=== PATIENT | female | born 1950 | race Caucasian/White ===

== ENCOUNTER 2016-09-03 08:53 | Outpatient (CLI) | payer OTHER | END 2016-09-03 20:00 | disposition home or self-care (01) | LOC: SMA 08:53 | PROVIDERS: ATTEND Family Medicine | DX: Z12.31 Encounter for screening mammogram for malignant neoplasm of breast (principal) | CPT/HCPCS: 77067; G0202 ==

== ENCOUNTER 2017-08-27 13:09 | Outpatient (CLI) | payer OTHER | END 2017-08-27 19:52 | disposition home or self-care (01) | LOC: SRD 13:09 | PROVIDERS: ATTEND General Practice | DX: Z01.818 Encounter for other preprocedural examination (principal); I25.10 Atherosclerotic heart disease of native coronary artery without angina pectoris; Z95.810 Presence of automatic (implantable) cardiac defibrillator | CPT/HCPCS: 71046-TC ==

== ENCOUNTER 2017-08-31 11:10 | Day surgery (SDC) | payer OTHER ==
[~2017-08-31] VITALS: Ht 162.6 cm; Wt 89.4 kg
[2017-08-31 11:59] LABS: BASOPHILS % (AUTO) 0.7 % (0.0-2.0); EOSINOPHILS # (AUTO) 0.2 K/uL (0.0-0.4); EOSINOPHILS % (AUTO) 3.3 % (0.0-4.0); HEMOGLOBIN 11.5 g/dL (12.0-16.0); LYMPHOCYTES # (AUTO) 1.1 K/uL (1.0-5.5); LYMPHOCYTES % (AUTO) 19.8 % (20.5-51.5); MEAN CORPUSCULAR HEMOGLOBIN 28 pg (27-31); MEAN CORPUSCULAR HGB CONC 33 % (32-36); MEAN CORPUSCULAR VOLUME 85 fL (79.0-98.0); MONOCYTES # (AUTO) 0.5 K/uL (0.0-1.0); MONOCYTES % (AUTO) 8.9 % (1.7-9.3); NEUTROPHILS # (AUTO) 3.7 K/uL (1.8-7.7); NEUTROPHILS % (AUTO) 67.3 % (40.0-70.0); PLATELET COUNT (AUTO) 314 K/uL (130-430); RED BLOOD CELL COUNT(AUTO) 4.13 MIL/uL (4.2-6.2); RED CELL DISTRIBUTION WIDTH 13.8 % (9.0-15.0); WHITE BLOOD COUNT (AUTO) 5.5 K/uL (4.8-10.8)
[2017-08-31] MEDS ORDERED: CEFAZOLIN 2 GM IVPB PREMIX 50 ML IV ONE (12:01)
[2017-08-31] MEDS ORDERED: NS 1000 ML BAG IV ONE (13:46)
[2017-08-31] MEDS ORDERED: MIDAZOLAM HCL 5 MG/5 ML VIAL IVP ONE (13:46)
[2017-08-31] MEDS ORDERED: MEPERIDINE HCL/PF 50 MG/ML AMP IV ONE (13:46)
[2017-08-31] MEDS ORDERED: SEVOFLURANE 15 MIN GAS INH ONE (13:46)
[2017-08-31] MEDS ORDERED: NS IRRIG SOLN 1000 ML IR ONE (13:46)
[2017-08-31] MEDS ORDERED: fentaNYL CITRATE 250 MCG/5 ML AMP IV ONE (13:46)
[2017-08-31] MEDS ORDERED: ONDANSETRON HCL 4 MG/2 ML VIAL IVP ONE ×2 (13:46→15:15)
[2017-08-31] MEDS ORDERED: LIDOCAINE PF 1%, 20 MG/2 ML AMP INJ ONE (13:46)
[2017-08-31] MEDS ORDERED: PROPOFOL 200MG/ 20ML VIAL (DIPRIVAN) IV ONE (13:46)
[2017-08-31] MEDS ORDERED: MEPERIDINE HCL/PF 50 MG/ML AMP ONE (14:00)
[2017-08-31] MEDS ORDERED: NALOXONE HCL 0.4 MG/ML AMP (NARCAN) IVP ONE (15:15)
[2017-08-31] MEDS ORDERED: HYDROmorphone 1 MG INJ. 1 MG/ML AMPUL IVP PRN (15:15)
[2017-08-31] MEDS ORDERED: MEPERIDINE HCL/PF 25 MG/ML DISP.SYRIN IVP PRN (15:15)
[2017-08-31] MEDS ORDERED: fentaNYL CITRATE/PF 100 MCG/2 ML AMP IVP PRN (15:15)
[2017-08-31] MEDS ORDERED: KETOROLAC TROMETHAMINE 30 MG VIAL IM ONE (15:15)
[2017-08-31] MEDS ORDERED: MIDAZOLAM HCL 5 MG/5 ML VIAL IVP PRN (15:15)
[2017-08-31] MEDS ORDERED: HYDROcodone/ACETAMIN 5-325 MG TAB (NORCO/ VICODIN) PO PRN (15:45)
[2017-08-31 17:17] VITALS: BP_SYST 117
== END 2017-08-31 18:00 | disposition home or self-care (01) ==
LOC: SDS 11:10 → SMU 11:11 → SDS 18:00
PROVIDERS: ATTEND Surgery
DX: S30.1XXA Contusion of abdominal wall, initial encounter (principal); S70.02XA Contusion of left hip, initial encounter; X58.XXXA Exposure to other specified factors, initial encounter; Y93.9 Activity, unspecified; Y92.89 Other specified places as the place of occurrence of the external cause; Y99.9 Unspecified external cause status; Z98.890 Other specified postprocedural states; Z95.0 Presence of cardiac pacemaker; Z79.899 Other long term (current) drug therapy
CPT/HCPCS: 26990; 36415; 82962; 85025; 87070; 87075; 87101; 88304; J0690; J2001; J2175; J2250; J2405; J2704; J3010; J7030; J7120

== ENCOUNTER 2017-09-07 14:46 | Outpatient (CLI) | payer OTHER | END 2017-09-07 17:45 | disposition home or self-care (01) | LOC: SMA 14:46 | PROVIDERS: ATTEND Family Medicine | DX: Z12.31 Encounter for screening mammogram for malignant neoplasm of breast (principal) | CPT/HCPCS: 77067 ==

== ENCOUNTER 2018-09-13 14:56 | Outpatient (CLI) | payer OTHER | END 2018-09-13 16:56 | disposition home or self-care (01) | LOC: SMA 14:56 | PROVIDERS: ATTEND Family Medicine | DX: Z12.31 Encounter for screening mammogram for malignant neoplasm of breast (principal) | CPT/HCPCS: 77067 ==

== ENCOUNTER 2019-02-04 16:41 | Inpatient (IN) | payer OTHER ==
[~2019-02-04] VITALS: Ht 162.6 cm; Wt 84.8 kg
[2019-02-04 16:54] VITALS: BP_SYST 123
--- NOTE | 2019-02-04 18:24 | NUR ---
Patient to ER bed 03 to gown for evaluation. Side rails up.
--- NOTE | 2019-02-04 18:40 | NUR ---
Pt arrived to ED sent from Urgent Care with complaints of right foot ulcer on the ball of foot. Pt was previously receiving weekly wound treatment in [place] until she could no longer afford transportation cost. Pt stated she is in a lot of pain, and wound is packed and dressed. Wound was not packed, but was dressed.
--- NOTE | 2019-02-04 18:48 | NUR ---
ER Dr. Lam at bedside examining patient.
[2019-02-04] MEDS ORDERED: NACL 0.9% 1,000 ML IV ONE (19:00)
[2019-02-04 20:00] LABS: BASOPHILS % (AUTO) 0.5 % (0.0-2.0); EOSINOPHILS # (AUTO) 0.1 K/uL (0.0-0.4); EOSINOPHILS % (AUTO) 1.8 % (0.0-4.0); HEMATOCRIT 34.7 % (36-48); HEMOGLOBIN 11.5 g/dL (12.0-16.0); LYMPHOCYTES # (AUTO) 1.6 K/uL (1.0-5.5); LYMPHOCYTES % (AUTO) 21.3 % (20.5-51.5); MEAN CORPUSCULAR HEMOGLOBIN 30 pg (27-31); MEAN CORPUSCULAR HGB CONC 33 % (32-36); MEAN CORPUSCULAR VOLUME 90 fL (79.0-98.0); MONOCYTES # (AUTO) 0.7 K/uL (0.0-1.0); MONOCYTES % (AUTO) 9.1 % (1.7-9.3); NEUTROPHILS # (AUTO) 4.9 K/uL (1.8-7.7); NEUTROPHILS % (AUTO) 67.3 % (40.0-70.0); PLATELET COUNT (AUTO) 228 K/uL (130-430); RED BLOOD CELL COUNT(AUTO) 3.86 MIL/uL (4.2-6.2); RED CELL DISTRIBUTION WIDTH 14.1 % (9.0-15.0); WHITE BLOOD COUNT (AUTO) 7.3 K/uL (4.8-10.8)
[2019-02-04 20:15] LABS: CALCIUM 9.5 mg/dL (8.4-11.0); CREATININE 1.56 mg/dL (0.55-1.30); INR 1.1 (0.8-1.2); PROTHROMBIN TIME 11.1 SECS (9.5-12.5)
[2019-02-04 20:17] LABS: POTASSIUM 2.9 mmol/L (3.5-5.1)
[2019-02-04 20:20] LABS: ALBUMIN 3.9 g/dL (3.4-4.8); TOTAL BILIRUBIN 0.4 mg/dL (0.0-1.0)
[2019-02-04] MEDS ORDERED: POTASSIUM CHLORIDE 10 MEQ TAB.PRT.SR PO ONE (20:30)
--- NOTE | 2019-02-04 20:30 | NUR ---
Dr. Gilman at bedside.
--- NOTE | 2019-02-04 21:15 | NUR ---
Pt provided diabetic tray.
[2019-02-04] MEDS ORDERED: ACETAMINOPHEN 325 MG TABLET PO ONE (21:30)
[2019-02-04 21:35] LABS: BILIRUBIN,URINE NEGATIVE (NEGATIVE); BLOOD, URINE NEGATIVE (NEGATIVE); CLARITY/URINE CLEAR (CLEAR); COLOR,URINE YELLOW (YELLOW); GLUCOSE,URINE NEGATIVE (NEGATIVE); KETONES,URINE NEGATIVE (NEGATIVE); LEUKOCYTE ESTERASE ,URINE NEGATIVE (NEGATIVE); NITRITE, URINE NEGATIVE (NEGATIVE); PROTEIN URINE NEGATIVE (NEGATIVE); UROBILINOGEN,URINE 0.2 (0.2-1.0)
[2019-02-04] MEDS ORDERED: ACETAMINOPHEN 325 MG TABLET ONE (21:44)
[2019-02-04] MEDS ORDERED: ASPIRIN 81 MG TAB.CHEW PO ONE (22:15)
[2019-02-04] MEDS ORDERED: POTA20TA83 PO (22:35)
[2019-02-04] MEDS ORDERED: LIP40 PO (22:36)
[2019-02-04] MEDS ORDERED: SITA50TA3 PO (22:39)
[2019-02-04] MEDS ORDERED: LISI2.5T48 PO (22:40)
[2019-02-04] MEDS ORDERED: MILN50TA PO (22:40)
[2019-02-04] MEDS ORDERED: FURO-149 PO (22:42)
[2019-02-04] MEDS ORDERED: HYDR200T80 PO (22:43)
[2019-02-04] MEDS ORDERED: CARV6.2554 PO (22:43)
[2019-02-04] MEDS ORDERED: PANT20TA2 PO (22:44)
[2019-02-04] MEDS ORDERED: METO5TAB8 PO (22:44)
[2019-02-04] MEDS ORDERED: CLOP75TA32 PO (22:47)
[2019-02-04] MEDS ORDERED: VENL150C2 PO (22:48)
[2019-02-04] MEDS ORDERED: ASPI-1153 PO (22:48)
[2019-02-04] MEDS ORDERED: GLIP10TA21 PO (22:51)
--- NOTE | 2019-02-04 22:56 | NUR ---
Medication reconciliation completed with information provided by patient. Any prior medication reconciliation on file was reviewed and corrected.
--- NOTE | 2019-02-04 23:02 | NUR ---
ADMISSION NOTE Received patient from ER via cody, received report from EUNICE FRAUSTO. Patient admitted with diagnosis of POSITIVE TROPONIN. Patient oriented to hospital routine, call light, toileting and safety-patient verbalized understanding.
--- NOTE | 2019-02-04 23:10 | NUR ---
Patient will be admitted to care of Dr. Herrera. Admitted to Tele unit. Will go to room 125B. Belongings list completed. Summary report printed. Bedside report given to EUNICE Zaragoza.
[2019-02-04 23:13] VITALS: BP_SYST 159
[2019-02-04] MEDS: ALPRAZolam 0.25 MG TABLET PO PRN (23:45)
--- NOTE | 2019-02-04 23:50 | NUR ---
XANAX GIVEN Patient was given Xanax as ordered PRN for complaints of anxiety. Educated on medication and potential side effects. Safety and fall precautions in place. Call light with patient. Bed alarm on. Will monitor.
--- NOTE | 2019-02-05 01:33 | NUR ---
CONSULTATION PAGED/CALLED Reason for Consultation: ELEVATED TROP Person Who was Notified: Consulting Physician: TORI TITUS IS PRINCIPAL SYSTEMS ENGINEER Residential Support Worker Specialty: CARDIO Ordering Physician: MERLY
[2019-02-05 01:43] VITALS: BP_SYST 119
[2019-02-05 01:56] VITALS: BP_SYST 119
--- NOTE | 2019-02-05 02:00 | NUR ---
RESTING/DENIES ANY PAIN OR DISCOMFORT Patient is resting at this time. Denies any pain or discomfort. Encouraged patient to use call light for any needs. Safety and fall precautions in place. Bed alarm on. Will monitor.
--- NOTE | 2019-02-05 02:44 | NUR ---
RESTING Patient is resting at this time. No s/s of acute distress. Safety and fall precautions in place. Bed alarm on. Call light with patient. Encouraged to use for any needs. Will monitor.
--- NOTE | 2019-02-05 03:56 | NUR ---
PERIPAD AND MESH UNDERWEAR GIVEN REQUESTED Patient requested peripad and disposable underwear. Given as requested. Denies any other needs at this time. States she will need to use the bathroom soon but not at this time. Reminded patient to use call light when she is ready. Verbalized understanding. Bed alarm on. Will monitor.
--- NOTE | 2019-02-05 04:14 | NUR ---
PAGING DR. TITUS (MEDICAID SPECIALIST FOR DR. MIR) TO REPORT CRITICAL TROPONIN OF 0.071 Spoke with Doreen from exchange who stated Dr. Titus is production operations manager for Dr. Mir. Will wait for MD to call back to report troponin result.
--- NOTE | 2019-02-05 04:23 | NUR ---
CRITICAL TROPONIN REPORTED TO DR. TITUS Critical troponin of 0.[address] Titus; no orders received. stated he will see patient in the morning.
[2019-02-05] MEDS ORDERED: D5W 1,000 ML IV PRN (05:58)
[2019-02-05] MEDS ORDERED: GLUCOSE 15 GM GEL (in 37.5 GM TUBE) PO PRN (06:00)
[2019-02-05] MEDS ORDERED: DEXTROSE 50% JECT 50 ML DISP.SYRIN IVP PRN (06:00)
--- NOTE | 2019-02-05 07:32 | NUR ---
CLOSING NOTES Patient and bedside report given to day shift nurse, EUNICE German. Endorsed ordered Zosyn due to pharmacy not being able to prepare medication before end of shift.
[2019-02-05 07:52] LABS: BASOPHILS % (AUTO) 0.8 % (0.0-2.0); EOSINOPHILS # (AUTO) 0.2 K/uL (0.0-0.4); EOSINOPHILS % (AUTO) 2.5 % (0.0-4.0); HEMATOCRIT 35.5 % (36-48); HEMOGLOBIN 11.7 g/dL (12.0-16.0); LYMPHOCYTES # (AUTO) 1.7 K/uL (1.0-5.5); MEAN CORPUSCULAR HEMOGLOBIN 30 pg (27-31); MEAN CORPUSCULAR HGB CONC 33 % (32-36); MEAN CORPUSCULAR VOLUME 90 fL (79.0-98.0); MONOCYTES # (AUTO) 0.6 K/uL (0.0-1.0); MONOCYTES % (AUTO) 9.8 % (1.7-9.3); NEUTROPHILS # (AUTO) 3.5 K/uL (1.8-7.7); NEUTROPHILS % (AUTO) 57.9 % (40.0-70.0); PLATELET COUNT (AUTO) 223 K/uL (130-430); RED BLOOD CELL COUNT(AUTO) 3.94 MIL/uL (4.2-6.2); RED CELL DISTRIBUTION WIDTH 14.1 % (9.0-15.0)
--- NOTE | 2019-02-05 07:55 | NUR ---
opening note patient is resting in bed, A&Ox4, assessment completed, educated protection analyst light system and plan of care, patient verbalized understanding, IV dressing intact, no signs of distress, fall/safety precautions in place, patient asked me to talk to MD about continuing the rest of her home medications.
[2019-02-05 08:00] VITALS: BP_SYST 133
[2019-02-05] MEDS ORDERED: PIPERACILLIN/TAZO 3.375/DEX-IS 50 ML IV ONE (08:00)
[2019-02-05 08:05] LABS: CALCIUM 9.4 mg/dL (8.4-11.0); CREATININE 1.34 mg/dL (0.55-1.30); POTASSIUM 3.3 mmol/L (3.5-5.1)
[2019-02-05 08:15] LABS: ALBUMIN 3.9 g/dL (3.4-4.8); TOTAL BILIRUBIN 0.3 mg/dL (0.0-1.0)
[2019-02-05] MEDS ORDERED: glipiZIDE XL 5 MG TAB ( GLUCOTROL XL) PO SCH (09:00)
[2019-02-05] MEDS ORDERED: ASPIRIN 81 MG TAB.CHEW PO SCH (09:00)
[2019-02-05] MEDS: ASPIRIN 81 MG TABLET(ECOTRIN) PO SCH (09:20)
[2019-02-05] MEDS: ATORVASTATIN 20 MG TABLET PO SCH (09:20)
[2019-02-05] MEDS: LISINOPRIL 5 MG TABLET PO SCH (09:21)
[2019-02-05] MEDS: CARVEDILOL 6.25 MG TABLET (COREG) PO SCH ×2 (09:21→20:52)
[2019-02-05] MEDS: PANTOPRAZOLE SODIUM 40 MG TAB PO SCH (09:22)
[2019-02-05] MEDS: METOLAZONE 5 MG TABLET PO SCH (09:22)
[2019-02-05] MEDS: FUROSEMIDE 40 MG TABLET PO SCH ×2 (09:22→20:50)
[2019-02-05] MEDS: HYDROXYCHLOROQUINE SULFATE 200 MG TABLET PO SCH ×2 (09:22→20:48)
[2019-02-05] MEDS: POTASSIUM CHLORIDE 20 MEQ TAB.PRT.SR PO SCH ×2 (09:22→20:49)
--- NOTE | 2019-02-05 09:22 | NUR ---
morning medications patient is resting in bed, educated on medication uses and side effects, patient verbalized understanding, no other needs at this time, DR Skinner is at station and I informed him about patient's home medication of plavix and he okayed for it to be continued.
--- NOTE | 2019-02-05 09:30 | NUR ---
Dr Bundy rounds informed him about the patient's troponin that I reported to Dr Brody MD did not ask for any orders and that she is cleared with him and if the troponin is lower or the same that it is okay and I do not need to page him again, and she should still follow up with her scheduled appt with Dr Mir.
[2019-02-05] MEDS ORDERED: CLOPIDOGREL BISULFATE 75 MG TABLET PO ONE (09:45)
[2019-02-05] MEDS ORDERED: MAG-AL HYDROX/SIMETH 30 ML UDC PO PRN (12:00)
[2019-02-05] MEDS: INSULIN REGULAR, HUMAN 100 UNITS/ML, 10 ML VIAL (humuLIN R) SUBCUT PRN ×2 (12:05→20:56)
--- NOTE | 2019-02-05 12:05 | NUR ---
insulin coverage patient is sitting in chair and watching tv, accuchek was done and sliding scale is needed per MD order, patient verbalized understanding, no other needs at this time, fall/safety precautions in place.
[2019-02-05] MEDS ORDERED: DOCUSATE SODIUM 100 MG CAPSULE PO ONE (12:15)
[2019-02-05 12:45] VITALS: BP_SYST 136
[2019-02-05] MEDS: ACETAMINOPHEN 325 MG TABLET PO PRN ×3 (13:04→23:58)
--- NOTE | 2019-02-05 13:34 | NUR ---
CONSULTATION PAGED/CALLED Reason for Consultation: [] FOOT WOUND DEBRIDEMENT Person Who was Notified: [] Consulting Physician: [] DR Libia HANDY Outreach And Education Social Worker Specialty: [] GEN SURGERY Ordering Physician: [] DR Libia MAYO Addendum: 02/05/19 at 1340 by Carol Villalta [place]/ PERSON WHO WAS NOTIFIED: MIGUEL (EXCHANGE)
--- NOTE | 2019-02-05 14:43 | NUR ---
spoke to Bri from pharmacy in regards to patient's 1400 zosyn not being in the med room, informed me that she will look into it.
[2019-02-05] MEDS: PIPERACILLIN/TAZO 3.375/DEX-IS 50 ML IV SCH ×2 (15:17→20:49)
--- NOTE | 2019-02-05 15:17 | NUR ---
giulia and Dr Parker consult patient resting in bed, educated on medication use and side effects, patient verbalized understanding, Dr Parker in the room speaking to the patient.
[2019-02-05] MEDS ORDERED: SILVER NITRATE APPLICATOR 1 STICK STICK..EA. TP ONE (16:15)
[2019-02-05 16:35] VITALS: BP_SYST 101
--- NOTE | 2019-02-05 17:15 | NUR ---
Exicisional debridement of right foot ulcer Dr Parker at the bedside to do procedure.
--- NOTE | 2019-02-05 18:28 | NUR ---
Nutrition Assessment A RD reviewed pertinent nutrition-related info via EMR (physician notes/nursing notes/labs/meds/nursing care trends/care activity). Admission Dx: Positive troponin PMH: DM, HTN, CAD, arthritis, fibromyalgia, lupus, PVD, infected foot ulcer per physician notes Current Diet Order/Nutrition Support: CCHO x0 days Current PO Intakes: N/A Objective Information: RD Notification received 02/04/19 2333 for unintentional wt loss in the last 3 months (14-23#), and unhealed wound. Plan for bedside debridement today per RN report. Subjective Information: 68 YOF seen sitting in bedside chair at time of RD visit. Pt appeared over-nourished for ht, c/w anthropometrics and verified by pt. Pt reported fair appetite, tolerating diet well, though stated she did not care much from lunch entre provide today: pasta w/ meat sauce, potatoes, and broccoli. Pt reported that she only ate a bit of the pasta w/ meat sauce and broccoli. Pt reported use of Glucerna ONS MACHINE CLOTHING MAN. RD offered ONS and Adalberto for wound healing pt declined ONS but was receptive to Adalberto BID (orange flavor). RD encouraged pt to try to increase PO intakes for adequate nutrition and wound healing. Ht: 64/54 Wt: 187#/85 kg IBW: 120#/55 kg %IBW: 155% Adj IBW (obesity): 137#/62 kg BMI: 32.1 kg/m2 (obesity class I) ESTIMATED NUTRITIONAL NEEDS CALORIES/DAY: 4972-1336 kcal/day (30-35 kcal/kg Adj IBW for obesity, wound healing, infection) PROTEIN/DAY: 74-93 gm/day (1.2-1.5 gm/kg Adj IBW for obesity, wound healing, infection) FLUID/DAY: 1.8-2.2 L/day (1 ml/kcal/day for maintenance) D Increased nutritional needs related to metabolic demands as evidenced by estimated nutritional needs for wound healing and infection. I Recommend CCHO diet w/ Adalberto BID (180 kcal/day, 5 gm protein/day) M Monitor appetite and PO intakes w/ goal of pt meeting at least 75% of estimated nutritional needs, labs trending WNL, normal GI function, and skin integrity/wt maintenance E Moderate Risk; RD to F/U within 3-5 days
--- NOTE | 2019-02-05 18:29 | NUR ---
Dietitian Recommendations * Recommend [facility] [place] diet w/ Adalberto BID (180 kcal/day, 5 gm protein/day) LP, RD Please refer to Nutrition Assessment for details.
--- NOTE | 2019-02-05 19:01 | NUR ---
closing note patient is resting in bed,no signs of distress, pain tolerable at this time, fall/safety precautions in place, will endorse report to noc shift nurse to continue with care, patient has PRN medications that she may request.
--- NOTE | 2019-02-05 19:25 | NUR ---
OPENING NOTE Patient and bedside report was received from day shift nurse. Interactive Digital Media Specialist at bedside.
--- NOTE | 2019-02-05 20:40 | NUR ---
LESLEY MARIN PAGING DR. VALLE, DR. BUENO CLIENT ADMINISTRATOR, REGARDING CRITICAL LABS, SPOKE WITH CATHERINE
[2019-02-05] MEDS: DOCUSATE SODIUM 100 MG CAPSULE PO SCH (20:50)
--- NOTE | 2019-02-05 20:50 | NUR ---
CRITICAL TROPONIN REPORTED TO DR. BUENO (CARDIO COVERING FOR DR. MIR) Patient's critical troponin level was reported to Dr. Bueno, who is covering for Dr. Mir. No new orders received.
[2019-02-05 20:52] VITALS: BP_SYST 152
[2019-02-05] MEDS: ALPRAZolam 0.25 MG TABLET PO PRN (21:02)
--- NOTE | 2019-02-05 21:02 | NUR ---
XANAX GIVEN Patient requested Xanax for complaints of anxiety and her statement of "missing [her] " who a few years ago because "he usually takes care of [her]." I reassured her that nursing staff is here to take care of her. Tissue box and ice chips given as requested.
--- NOTE | 2019-02-05 22:15 | NUR ---
BEDSIDE COMMODE Patient's bed alarm went off and patient was already standing up with walker against nurse's instructions to use call light for assistance when getting out of bed. Encouraged patient to use call light for safety precautions and increased risk for falls. Verbalized understanding. Will continue with plan of care. Addendum: 02/06/19 at 0341 by Spring Roberson RN EDIT: BATHROOM* NOT BEDSIDE COMMODE
[2019-02-06 00:37] VITALS: BP_SYST 146
--- NOTE | 2019-02-06 01:00 | NUR ---
BEDPAN Patient requested bedpan and stated she did not want a bedside commode, or to walk to the bathroom at this time. Patient was able to void with no difficulty. Denies any other needs at this time.
[2019-02-06] MEDS: PIPERACILLIN/TAZO 3.375/DEX-IS 50 ML IV SCH ×2 (02:37→08:41)
--- NOTE | 2019-02-06 04:01 | NUR ---
RESTING Pt. resting at this time. Denies any needs. Encouraged to use call light for assistance. Bed alarm on. Will monitor.
[2019-02-06 06:16] LABS: ALBUMIN 3.3 g/dL (3.4-4.8); CALCIUM 9.1 mg/dL (8.4-11.0); CREATININE 1.64 mg/dL (0.55-1.30); TOTAL BILIRUBIN 0.3 mg/dL (0.0-1.0)
[2019-02-06] MEDS: INSULIN REGULAR, HUMAN 100 UNITS/ML, 10 ML VIAL (humuLIN R) SUBCUT PRN ×2 (06:21→11:23)
[2019-02-06 06:35] LABS: POTASSIUM 2.9 mmol/L (3.5-5.1)
--- NOTE | 2019-02-06 06:50 | NUR ---
PAGED DR. MAYO TO REPORT CRITICAL POTASSIUM 2.9/CLOSING NOTES All needs met throughout shift. Paged Dr. Mayo to report potassium 2.9 level. Spoke with Jen prince. Will endorse care to day shift nurse.
--- NOTE | 2019-02-06 07:13 | NUR ---
REPORTED POTASSIUM [address] MAYO Patient's potassium level of 2.[address] Mayo; orders for 40 meq potassium IV was received. Day shift nurse, EUNICE German also made aware to carry out. Addendum: 02/06/19 at 0722 by Spring Roberson RN EDIT: Orders for KRIDER 40 meq potassium IV received.
[2019-02-06] MEDS ORDERED: KCL 40 mEq in 100 mL (PREMIX) 100 ML IV ONE (07:15)
--- NOTE | 2019-02-06 07:27 | NUR ---
Nutrition Update Herber Scale 18 noted. Pt admitted for Positive Troponin Diet: [facility] BMI: 32.1 kg/m2 RD to follow per nutrition care standards.
--- NOTE | 2019-02-06 07:45 | NUR ---
opening note patient is resting in bed, A&Ox4, assessment completed, educated commissioned defence force officer light system and plan of care, patient verbalized understanding, IV dressing intact, no signs of distress, fall/safety precautions in place.
[2019-02-06 08:00] VITALS: BP_SYST 110
[2019-02-06] MEDS: DOCUSATE SODIUM 100 MG CAPSULE PO SCH (08:40)
[2019-02-06] MEDS: POTASSIUM CHLORIDE 20 MEQ TAB.PRT.SR PO SCH (08:41)
[2019-02-06] MEDS: ASPIRIN 81 MG TABLET(ECOTRIN) PO SCH (08:42)
[2019-02-06] MEDS: HYDROXYCHLOROQUINE SULFATE 200 MG TABLET PO SCH (08:42)
[2019-02-06] MEDS: PANTOPRAZOLE SODIUM 40 MG TAB PO SCH (08:42)
[2019-02-06] MEDS: ACETAMINOPHEN 325 MG TABLET PO PRN (08:43)
[2019-02-06] MEDS: METOLAZONE 5 MG TABLET PO SCH (08:43)
[2019-02-06] MEDS: ATORVASTATIN 20 MG TABLET PO SCH (08:43)
[2019-02-06] MEDS: FUROSEMIDE 40 MG TABLET PO SCH (08:44)
[2019-02-06] MEDS: LISINOPRIL 5 MG TABLET PO SCH (08:44)
[2019-02-06] MEDS: CARVEDILOL 6.25 MG TABLET (COREG) PO SCH (08:45)
[2019-02-06] MEDS ORDERED: POTASSIUM CHLORIDE 40 MEQ in NS 250 ML IV ONE (09:00)
[2019-02-06] MEDS ORDERED: CLOPIDOGREL BISULFATE 75 MG TABLET PO SCH (09:00)
[2019-02-06] MEDS ORDERED: NS 250 ML IV ONE (09:15)
[2019-02-06] MEDS ORDERED: POTASSIUM CHLORIDE 20 MEQ TAB.PRT.SR PO ONE (09:15)
--- NOTE | 2019-02-06 09:45 | NUR ---
new medication orders from Dr Skinner patient resting in bed, educated on medication uses and side effects, patient verbalized understanding, no other needs at this time, informed her about the discharge plan for today, fall/safety precautions in place.
[2019-02-06 10:47] VITALS: BP_SYST 94
[2019-02-06] MEDS ORDERED: NEPH PO (10:48)
[2019-02-06] MEDS ORDERED: CEPH250C PO (10:49)
[2019-02-06] MEDS ORDERED: TRAM-350 PO (10:50)
--- NOTE | 2019-02-06 11:22 | NUR ---
accucheck patient is resting in bed, accucheck done and sliding scale needed per MD order, educated on medication use and side effects, patient verbalized understanding, no needs addressed at this time, informed her that I talked to her son and he will be the one taking her back [facility] the senior living center.
[2019-02-06 12:00] VITALS: BP_SYST 94
--- NOTE | 2019-02-06 13:39 | NUR ---
rounds patient is resting in bed, repositioned electrodes, awaiting for the CMP result, no other needs addressed at this time, fall/safety precautions in place, IV potassium still running.
[2019-02-06 13:41] LABS: CREATININE 1.63 mg/dL (0.55-1.30); POTASSIUM 3.6 mmol/L (3.5-5.1)
[2019-02-06] MEDS ORDERED: PIPERACILLIN/TAZOBACTAM 2.25 GM/ D5W 50 ML IV SCH ×2 (14:00)
--- NOTE | 2019-02-06 15:13 | NUR ---
D/C Patient 1500 Patient given medication reconciliation form and D/C instructions. Exit Care provided. Patient verbalized understanding. MD discussed with patient the results and treatment provided. Ambulatory with steady gait for discharge to home. Patient in stable condition, ID band removed. IV catheter removed, intact and dressing applied, no active bleeding. Rx of nephrovite, keflex, and tramadol given. Patient educated on pain management. All belongings sent with patient.
== END 2019-02-06 15:00 | disposition home or self-care (01) | DRG 300 ==
LOC: SED 16:41 → STU 22:09
PROVIDERS: ADMIT Internal Medicine Hospice and Palliative Medicine; ATTEND Internal Medicine Hospice and Palliative Medicine
PROC: 0HBNXZZ Excision of Left Foot Skin, External Approach (ICD-10-PCS; principal; 2019-02-05)
DX: E11.51 Type 2 diabetes mellitus with diabetic peripheral angiopathy without gangrene (principal); N17.9 Acute kidney failure, unspecified; M86.8X7 Other osteomyelitis, ankle and foot; M19.90 Unspecified osteoarthritis, unspecified site; I25.10 Atherosclerotic heart disease of native coronary artery without angina pectoris; E11.69 Type 2 diabetes mellitus with other specified complication; E11.22 Type 2 diabetes mellitus with diabetic chronic kidney disease; E11.628 Type 2 diabetes mellitus with other skin complications; E78.5 Hyperlipidemia, unspecified; I12.9 Hypertensive chronic kidney disease with stage 1 through stage 4 chronic kidney disease, or unspecified chronic kidney disease; L08.9 Local infection of the skin and subcutaneous tissue, unspecified; L84 Corns and callosities; L97.509 Non-pressure chronic ulcer of other part of unspecified foot with unspecified severity; M79.7 Fibromyalgia; N18.3 Chronic kidney disease, stage 3 (moderate); Z95.0 Presence of cardiac pacemaker; Z79.4 Long term (current) use of insulin
CPT/HCPCS: 36415; 71045; 80048; 80053; 80061; 81003; 82962; 83605; 84484; 85025; 85610-TC; 85730-TC; 87040-TC; 87070-TC; 87075-TC; 87086; 87186-TC; 93005; 96360; 99285; G0378; J0696; J1815; J2543; J3480; J7030; J7050; J7060

== ENCOUNTER 2019-12-01 10:10 | Outpatient (CLI) | payer OTHER ==
[~2019-12-01 10:10] MED LIST: ASPI-1153 PO; CARV6.2554 PO; CEPH250C PO; CLOP75TA32 PO; FURO-149 PO; GLIP10TA21 PO; HYDR200T80 PO; LIP40 PO; LISI2.5T48 PO; METO5TAB8 PO; MILN50TA PO; NEPH PO; PANT20TA2 PO; POTA20TA83 PO; SITA50TA3 PO; TRAM-350 PO; VENL150C2 PO
== END 2019-12-01 22:22 | disposition home or self-care (01) ==
LOC: SMA 10:10
PROVIDERS: ATTEND Family Medicine
DX: Z12.31 Encounter for screening mammogram for malignant neoplasm of breast (principal); N64.89 Other specified disorders of breast
CPT/HCPCS: 77067

== ENCOUNTER 2022-07-15 21:39 | Inpatient (IN) | payer OTHER ==
[~2022-07-15] VITALS: Ht 160 cm; Wt 82.6 kg
[~2022-07-15 21:39] MED LIST changes: -ASPI-1153 PO; +ASPI-1393 PO; -METO5TAB8 PO; +METO5TAB9 PO; +POTA-197 PO; -POTA20TA83 PO; -VENL150C2 PO; +VENL150C4 PO
[2022-07-15] MEDS ORDERED: METOPROLOL TARTRATE 5 MG/5 ML VIAL IVP ONE (21:45)
[2022-07-15 21:50] VITALS: BP_SYST 150
[2022-07-15 22:29] LABS: BASOPHILS # (AUTO) 0.1 K/uL (0.0-0.2); BASOPHILS % (AUTO) 0.5 % (0.0-2.0); HEMATOCRIT 30.7 % (36-48); LYMPHOCYTES # (AUTO) 0.1 K/uL (1.0-5.5); LYMPHOCYTES % (AUTO) 0.8 % (20.5-51.5); MEAN CORPUSCULAR HEMOGLOBIN 29 pg (27-31); MEAN CORPUSCULAR HGB CONC 33 % (32-36); MEAN CORPUSCULAR VOLUME 88 fL (79.0-98.0); MONOCYTES # (AUTO) 0.5 K/uL (0.0-1.0); MONOCYTES % (AUTO) 3.7 % (1.7-9.3); NEUTROPHILS # (AUTO) 12.9 K/uL (1.8-7.7); PLATELET COUNT (AUTO) 235 K/uL (130-430); RED BLOOD CELL COUNT(AUTO) 3.47 MIL/uL (4.2-6.2); RED CELL DISTRIBUTION WIDTH 13.3 % (9.0-15.0); WHITE BLOOD COUNT (AUTO) 13.6 K/uL (4.8-10.8)
[2022-07-15 22:40] LABS: ANION GAP 14 (5-15); CHLORIDE 96 mmol/L (98-107); CREATININE 2.11 mg/dL (0.55-1.30); GLUCOSE 333 mg/dL (70-99); UREA NITROGEN, BLOOD 37 mg/dL (8-21)
[2022-07-15 22:47] LABS: ALANINE AMINOTRANSFERASE 37 U/L (12-78); ALBUMIN 2.8 g/dL (3.4-4.8); ASPARTATE AMINOTRANSFERASE 48 U/L (10-37); TOTAL BILIRUBIN 0.6 mg/dL (0.0-1.0)
[2022-07-15] MEDS ORDERED: DOCU-144 PO (22:47)
[2022-07-15] MEDS ORDERED: CYAN250014 PO (22:47)
[2022-07-15] MEDS ORDERED: POLY17PO4 PO (22:47)
[2022-07-15] MEDS ORDERED: MULT-1089 PO (22:47)
[2022-07-15] MEDS ORDERED: ACET-2634 PO (22:47)
[2022-07-15] MEDS ORDERED: FOLI-43 PO (22:47)
[2022-07-15] MEDS ORDERED: FER300L PO (22:47)
[2022-07-15] MEDS ORDERED: ASCO500T20 PO (22:47)
[2022-07-15] MEDS ORDERED: SENN8.6T19 PO (22:47)
[2022-07-15] MEDS ORDERED: TAPAZOLE PO (22:47)
[2022-07-15] MEDS ORDERED: CALC500T63 PO (22:47)
[2022-07-15] MEDS ORDERED: MV-M1TAB19 PO (22:47)
[2022-07-15] MEDS ORDERED: GABA-776 PO (22:47)
[2022-07-15] MEDS ORDERED: ZINC100T2 PO (22:47)
[2022-07-15] MEDS ORDERED: CALC260T PO (22:47)
[2022-07-15] MEDS ORDERED: VANCOMYCIN HCL 1000 MG/VIAL IV ONE (23:59)
[2022-07-16] VITALS (17 sets, daily range): BP systolic 103–142
[2022-07-16] MEDS ORDERED: PIPERACILLIN/TAZO 3.375 GM in NS 50 ML IV ONE ×2
[2022-07-16] MEDS ORDERED: PIPERACILLIN/TAZOBACTAM 3.375 GM/VIAL (ZOSYN) IV ONE
[2022-07-16] MEDS ORDERED: ENOXAPARIN SODIUM 80 MG/0.8 ML SYRINGE SUBCUT ONE
[2022-07-16] MEDS ORDERED: ASPIRIN 325 MG TABLET PO ONE
[2022-07-16] MEDS ORDERED: VANCOMYCIN HCL 1,000 MG in NS 250 ML IV ONE ×2
[2022-07-16] MEDS ORDERED: INSULIN REGULAR, HUMAN 10 UNITS/0.1 ML, 3 ML VIAL IVP ONE
[2022-07-16] MEDS ORDERED: ASPIRIN 300 MG/SUPP.RECT SUPP RC ONE (01:15)
[2022-07-16] MEDS ORDERED: ACETAMINOPHEN 650 MG SUPP.RECT RC ONE (01:56)
[2022-07-16] MEDS ORDERED: ASPIRIN 325 MG TABLET ONE (02:05)
[2022-07-16] MEDS: PANTOPRAZOLE SODIUM 40 MG TAB PO SCH (09:45)
[2022-07-16] MEDS ORDERED: LORazepam 2 MG/ML VIAL IVP PRN (09:45)
[2022-07-16] MEDS ORDERED: SENNOSIDES 8.6 MG TABLET PO PRN (09:45)
[2022-07-16] MEDS: metOLazone 5 MG TABLET PO SCH (09:45)
[2022-07-16] MEDS: POLYETHYLENE GLYCOL 3350, 17 GM/ POWD.PACK PO SCH (09:45)
[2022-07-16] MEDS ORDERED: NON-FORMULARY MEDICATION (Cyanocobalamin (Vitamin B-12) (Vitamin B12) 1,000 MCG) PO SCH (09:45)
[2022-07-16] MEDS: MULTIVITAMINS TAB 1 TABLET PO SCH (09:45)
[2022-07-16] MEDS ORDERED: NON-FORMULARY MEDICATION (Tramadol Hcl/Acetaminophen (Acetaminophn-Tramadol 325-37.5) 1 TA PO PRN (09:45)
[2022-07-16] MEDS ORDERED: PIPERACILLIN/TAZO 3.375/DEX-IS 50 ML IV SCH (12:00)
[2022-07-16] MEDS ORDERED: *HEPARIN PER PHARMACY XX ONE (12:15)
[2022-07-16] MEDS ORDERED: CLOPIDOGREL BISULFATE 75 MG TABLET PO ONE (12:30)
[2022-07-16] MEDS ORDERED: ASPIRIN 81 MG TABLET(ECOTRIN) PO ONE (12:30)
[2022-07-16] MEDS ORDERED: ASCORBIC ACID 500 MG TABLET PO ONE (12:30)
[2022-07-16] MEDS ORDERED: GLUCOSE (DEXTROSE) ORAL GEL -Adults PO PRN (12:45)
[2022-07-16] MEDS ORDERED: metOLazone 5 MG TABLET PO ONE (12:45)
[2022-07-16] MEDS ORDERED: DEXTROSE 50%-WATER 50 ML DISP.SYRIN IVP PRN (12:45)
[2022-07-16] MEDS ORDERED: D5W 1,000 ML IV PRN (12:45)
[2022-07-16] MEDS ORDERED: GLIP10TA11 PO (13:57)
[2022-07-16] MEDS ORDERED: NORMAL SALINE 5 ML DISP.SYRIN IVF SCH (14:00)
[2022-07-16] MEDS ORDERED: FOLIC ACID 1 MG TABLET PO ONE (14:00)
[2022-07-16] MEDS ORDERED: NEPHROVITE, (FOLIC ACID/VITAMIN B COMP W-C 1 TAB) PO ONE (14:00)
[2022-07-16] MEDS: INSULIN REGULAR, HUMAN 100 UNITS/ML, 3 ML VIAL (humuLIN R) SUBCUT PRN ×2 (14:04→17:55)
[2022-07-16] MEDS: NORMAL SALINE 5 ML DISP.SYRIN IVF SCH ×2 (14:06→21:51)
[2022-07-16] MEDS ORDERED: methIMAzole 5 MG TABLET PO ONE (14:15)
[2022-07-16] MEDS ORDERED: HEPARIN SODIUM,PORCINE 5,000 UNITS/ML VIAL IV ONE (15:00)
[2022-07-16] MEDS ORDERED: HEPARIN 25,000 UNITS in 250 ML PREMIX IV PRN (15:00)
[2022-07-16] MEDS ORDERED: HEPARIN SODIUM,PORCINE 3000 UNITS/0.6 ML BOLUS IVP PRN (15:00)
[2022-07-16] MEDS ORDERED: HEPARIN SODIUM,PORCINE 2000 UNITS/0.4 ML BOLUS IVP PRN (15:00)
[2022-07-16] MEDS ORDERED: VITD2000 PO (15:38)
[2022-07-16] MEDS ORDERED: CALC500T63 PO (15:39)
[2022-07-16] MEDS: PIPERACILLIN/TAZOBACTAM 2.25 GM/ D5W 50 ML IV SCH ×2 (17:52)
[2022-07-16] MEDS ORDERED: CALCIUM CARBONATE PO SCH (21:00)
[2022-07-16] MEDS ORDERED: GABAPENTIN ENACARBIL PO SCH (21:00)
[2022-07-16] MEDS ORDERED: MILNACIPRAN HCL PO SCH (21:00)
[2022-07-16] MEDS: FERROUS SULFATE 300 MG/5 ML UDC PO SCH (21:49)
[2022-07-16] MEDS: POTASSIUM CHLORIDE 20 MEQ TAB.PRT.SR PO SCH (21:49)
[2022-07-16] MEDS: DOCUSATE SODIUM 100 MG CAPSULE PO SCH (21:49)
[2022-07-16] MEDS: ATORVASTATIN 20 MG TABLET PO SCH (21:50)
[2022-07-16] MEDS: CALCIUM CARBONATE 500 MG/ TAB.CHEW PO SCH (21:51)
[2022-07-16] MEDS: HYDROXYCHLOROQUINE SULFATE 200 MG TABLET PO SCH (21:54)
[2022-07-16] MEDS: CARVEDILOL 12.5 MG TABLET (COREG) PO SCH (21:55)
[2022-07-16] MEDS: FUROSEMIDE 40 MG TABLET PO SCH (21:55)
[2022-07-17] VITALS (24 sets, daily range): BP systolic 108–140
[2022-07-17] MEDS: PIPERACILLIN/TAZOBACTAM 2.25 GM/ D5W 50 ML IV SCH ×4 (01:06→06:49)
[2022-07-17] MEDS: NORMAL SALINE 5 ML DISP.SYRIN IVF SCH ×3 (06:00→21:34)
[2022-07-17 06:19] LABS: HEMATOCRIT 26.3 % (36-48); HEMOGLOBIN 8.9 g/dL (12.0-16.0); MEAN CORPUSCULAR HEMOGLOBIN 29 pg (27-31); MEAN CORPUSCULAR HGB CONC 34 % (32-36); MEAN CORPUSCULAR VOLUME 87 fL (79.0-98.0); PLATELET COUNT (AUTO) 182 K/uL (130-430); RED BLOOD CELL COUNT(AUTO) 3.03 MIL/uL (4.2-6.2); RED CELL DISTRIBUTION WIDTH 13.8 % (9.0-15.0); WHITE BLOOD COUNT (AUTO) 9.2 K/uL (4.8-10.8)
[2022-07-17 06:24] LABS: ANION GAP 11 (5-15); CALCIUM 9.3 mg/dL (8.4-11.0); CHLORIDE 100 mmol/L (98-107); CREATININE 2.33 mg/dL (0.55-1.30); GLUCOSE 55 mg/dL (70-99); PHOSPHORUS 3.1 mg/dL (2.7-4.5); UREA NITROGEN, BLOOD 55 mg/dL (8-21)
[2022-07-17 07:39] LABS: BILIRUBIN,URINE NEGATIVE (NEGATIVE); BLOOD, URINE 1+ (NEGATIVE); CLARITY/URINE CLEAR (CLEAR); COLOR,URINE YELLOW (YELLOW); GLUCOSE,URINE NEGATIVE (NEGATIVE); KETONES,URINE NEGATIVE (NEGATIVE); LEUKOCYTE ESTERASE ,URINE NEGATIVE (NEGATIVE); NITRITE, URINE NEGATIVE (NEGATIVE); PROTEIN URINE TRACE (NEGATIVE); UROBILINOGEN,URINE 0.2 (0.2-1.0)
[2022-07-17 08:21] LABS: BACTERIA,URINE FEW /HPF (None Seen); MUCUS,URINE None Seen /LPF (None Seen); RBC,URINE 0-3 /HPF (0-3); URINE SULFO SALICYLIC ACID NEGATIVE (NEGATIVE); WBC,URINE 0-3 /HPF (0-3)
[2022-07-17 08:53] LABS: C-REACTIVE PROTEIN QUANT 35.1 mg/dL (0-0.5)
[2022-07-17] MEDS: CYANOCOBALAMIN (VITAMIN B-12) 1,000 MCG TABLET PO SCH (09:00)
[2022-07-17] MEDS ORDERED: HERBAL CMPLX PO SCH (09:00)
[2022-07-17] MEDS ORDERED: ASPIRIN 81 MG TABLET(ECOTRIN) PO SCH (09:00)
[2022-07-17] MEDS ORDERED: [UNRECOGNIZED DRUG - OTHER] PO SCH (09:00)
[2022-07-17] MEDS ORDERED: IRON PO SCH (09:00)
[2022-07-17] MEDS ORDERED: CLOPIDOGREL BISULFATE 75 MG TABLET PO SCH (09:00)
[2022-07-17] MEDS ORDERED: MV MN PO SCH (09:00)
[2022-07-17 09:31] LABS: BASOPHILS % (AUTO) 0.2 % (0.0-2.0); EOSINOPHILS # (AUTO) 0.1 K/uL (0.0-0.4); EOSINOPHILS % (AUTO) 1.5 % (0.0-4.0); LYMPHOCYTES # (AUTO) 0.5 K/uL (1.0-5.5); LYMPHOCYTES % (AUTO) 5.5 % (20.5-51.5); MONOCYTES # (AUTO) 0.8 K/uL (0.0-1.0); MONOCYTES % (AUTO) 9.2 % (1.7-9.3); NEUTROPHILS # (AUTO) 7.7 K/uL (1.8-7.7); NEUTROPHILS % (AUTO) 83.6 % (40.0-70.0)
[2022-07-17 09:32] LABS: BAND % (MANUAL) 0 % (0-6); BASOPHILS % (MANUAL) 2 % (0-2); EOSINOPHILS % (MANUAL) 2 % (0-7); LYMPHOCYTES % (MANUAL) 6 % (20-46); MONOCYTES % (MANUAL) 7 % (0-11)
[2022-07-17 10:14] LABS: ERYTHROCYTE SEDIMENTATION RATE 95 MM/HR (0-20)
[2022-07-17] MEDS: DIPHENHYDRAMINE HCL 25 MG CAPSULE PO PRN (10:57)
[2022-07-17] MEDS: FERROUS SULFATE 300 MG/5 ML UDC PO SCH ×2 (10:58→21:32)
[2022-07-17] MEDS: NEPHROVITE, (FOLIC ACID/VITAMIN B COMP W-C 1 TAB) PO SCH (10:59)
[2022-07-17] MEDS: CALCIUM CARBONATE 500 MG/ TAB.CHEW PO SCH ×2 (10:59→21:00)
[2022-07-17] MEDS: DOCUSATE SODIUM 100 MG CAPSULE PO SCH ×2 (11:00→20:52)
[2022-07-17] MEDS: CARVEDILOL 12.5 MG TABLET (COREG) PO SCH ×2 (11:02→21:34)
[2022-07-17] MEDS: MULTIVITAMINS TAB 1 TABLET PO SCH (11:02)
[2022-07-17] MEDS: PANTOPRAZOLE SODIUM 40 MG TAB PO SCH (11:03)
[2022-07-17] MEDS: ATORVASTATIN 20 MG TABLET PO SCH ×2 (11:03→21:32)
[2022-07-17] MEDS: FUROSEMIDE 40 MG TABLET PO SCH ×2 (11:04→21:33)
[2022-07-17] MEDS: POLYETHYLENE GLYCOL 3350, 17 GM/ POWD.PACK PO SCH (11:10)
[2022-07-17] MEDS: FOLIC ACID 1 MG TABLET PO SCH (11:16)
[2022-07-17] MEDS: POTASSIUM CHLORIDE 20 MEQ TAB.PRT.SR PO SCH ×2 (11:17→21:32)
[2022-07-17] MEDS: ASCORBIC ACID 500 MG TABLET PO SCH (11:19)
[2022-07-17] MEDS: CHOLECALCIFEROL (VITAMIN D3) 2,000 UNIT TABLET PO SCH (11:19)
[2022-07-17] MEDS: HYDROXYCHLOROQUINE SULFATE 200 MG TABLET PO SCH ×2 (11:24→21:00)
[2022-07-17] MEDS: metOLazone 5 MG TABLET PO SCH (11:25)
[2022-07-17] MEDS: lisinopriL 5 MG TABLET PO SCH (11:31)
[2022-07-17] MEDS ORDERED: POTASSIUM CHLORIDE 10 MEQ TAB.PRT.SR PO ONE (13:30)
[2022-07-17] MEDS: CEFEPIME 2 GM in D5W 100 ML IV SCH (14:16)
[2022-07-17] MEDS: DAPTOmycin 500 MG in NS 50 ML IV SCH (14:17)
[2022-07-17] MEDS: Effexor XR 37.5 MG PO SCH (14:19)
[2022-07-17 16:43] LABS: URINE SODIUM, RANDOM 9 mmol/L (40-220)
[2022-07-17] MEDS: INSULIN REGULAR, HUMAN 100 UNITS/ML, 3 ML VIAL (humuLIN R) SUBCUT PRN (21:55)
[2022-07-17] MEDS: ACETAMINOPHEN 500 MG TABLET PO PRN (22:10)
[2022-07-18] VITALS: BP_SYST 114
[2022-07-18 01:00] VITALS: BP_SYST 127
[2022-07-18 02:00] VITALS: BP_SYST 152
[2022-07-18 04:00] VITALS: BP_SYST 152
[2022-07-18] MEDS: ACETAMINOPHEN 500 MG TABLET PO PRN (05:45)
[2022-07-18] MEDS: NORMAL SALINE 5 ML DISP.SYRIN IVF SCH ×3 (05:48→22:03)
[2022-07-18 06:42] LABS: BASOPHILS % (AUTO) 0.5 % (0.0-2.0); EOSINOPHILS # (AUTO) 0.2 K/uL (0.0-0.4); EOSINOPHILS % (AUTO) 2.1 % (0.0-4.0); HEMATOCRIT 26.1 % (36-48); HEMOGLOBIN 8.9 g/dL (12.0-16.0); LYMPHOCYTES # (AUTO) 0.6 K/uL (1.0-5.5); LYMPHOCYTES % (AUTO) 7.6 % (20.5-51.5); MEAN CORPUSCULAR HEMOGLOBIN 29 pg (27-31); MEAN CORPUSCULAR HGB CONC 34 % (32-36); MEAN CORPUSCULAR VOLUME 87 fL (79.0-98.0); MONOCYTES # (AUTO) 0.9 K/uL (0.0-1.0); MONOCYTES % (AUTO) 11.7 % (1.7-9.3); NEUTROPHILS # (AUTO) 6.2 K/uL (1.8-7.7); NEUTROPHILS % (AUTO) 78.1 % (40.0-70.0); PLATELET COUNT (AUTO) 204 K/uL (130-430); RED BLOOD CELL COUNT(AUTO) 3.02 MIL/uL (4.2-6.2); RED CELL DISTRIBUTION WIDTH 13.5 % (9.0-15.0); WHITE BLOOD COUNT (AUTO) 7.9 K/uL (4.8-10.8)
[2022-07-18 07:05] LABS: ALANINE AMINOTRANSFERASE 50 U/L (12-78); ALBUMIN 2.3 g/dL (3.4-4.8); ANION GAP 11 (5-15); ASPARTATE AMINOTRANSFERASE 53 U/L (10-37); CALCIUM 9.7 mg/dL (8.4-11.0); CHLORIDE 100 mmol/L (98-107); CREATININE 1.98 mg/dL (0.55-1.30); GLUCOSE 166 mg/dL (70-99); PHOSPHORUS 2.4 mg/dL (2.7-4.5); TOTAL BILIRUBIN 0.3 mg/dL (0.0-1.0); UREA NITROGEN, BLOOD 54 mg/dL (8-21)
[2022-07-18 08:00] VITALS: BP_SYST 113
[2022-07-18] MEDS: lisinopriL 5 MG TABLET PO SCH (08:45)
[2022-07-18] MEDS: DOCUSATE SODIUM 100 MG CAPSULE PO SCH ×2 (08:45→20:10)
[2022-07-18] MEDS: NEPHROVITE, (FOLIC ACID/VITAMIN B COMP W-C 1 TAB) PO SCH (08:46)
[2022-07-18] MEDS: CALCIUM CARBONATE 500 MG/ TAB.CHEW PO SCH ×2 (08:46→20:10)
[2022-07-18] MEDS: POTASSIUM CHLORIDE 20 MEQ TAB.PRT.SR PO SCH ×2 (08:46→20:11)
[2022-07-18] MEDS: MULTIVITAMINS TAB 1 TABLET PO SCH (08:46)
[2022-07-18] MEDS: methIMAzole 5 MG TABLET PO SCH (08:47)
[2022-07-18] MEDS: POTASSIUM CHLORIDE 10 MEQ TAB.PRT.SR PO SCH (08:47)
[2022-07-18] MEDS: PANTOPRAZOLE SODIUM 40 MG TAB PO SCH (08:47)
[2022-07-18] MEDS: FOLIC ACID 1 MG TABLET PO SCH (08:47)
[2022-07-18] MEDS: CYANOCOBALAMIN (VITAMIN B-12) 1,000 MCG TABLET PO SCH (08:48)
[2022-07-18] MEDS: POLYETHYLENE GLYCOL 3350, 17 GM/ POWD.PACK PO SCH (08:48)
[2022-07-18] MEDS: ASCORBIC ACID 500 MG TABLET PO SCH (08:48)
[2022-07-18] MEDS: ATORVASTATIN 20 MG TABLET PO SCH ×2 (08:48→20:09)
[2022-07-18] MEDS: CARVEDILOL 12.5 MG TABLET (COREG) PO SCH ×2 (08:48→20:10)
[2022-07-18] MEDS: HYDROXYCHLOROQUINE SULFATE 200 MG TABLET PO SCH ×2 (08:49→20:13)
[2022-07-18] MEDS: FERROUS SULFATE 300 MG/5 ML UDC PO SCH ×2 (08:49→20:11)
[2022-07-18] MEDS: metOLazone 5 MG TABLET PO SCH (08:49)
[2022-07-18] MEDS: Effexor XR 37.5 MG PO SCH (08:50)
[2022-07-18] MEDS: FUROSEMIDE 40 MG TABLET PO SCH ×2 (08:51→20:11)
[2022-07-18] MEDS: CHOLECALCIFEROL (VITAMIN D3) 2,000 UNIT TABLET PO SCH (08:52)
[2022-07-18 11:17] VITALS: BP_SYST 117
[2022-07-18] MEDS: CEFEPIME 2 GM in D5W 100 ML IV SCH (11:24)
[2022-07-18] MEDS: INSULIN REGULAR, HUMAN 100 UNITS/ML, 3 ML VIAL (humuLIN R) SUBCUT PRN ×3 (11:25→20:53)
[2022-07-18] MEDS: DIPHENHYDRAMINE HCL 25 MG CAPSULE PO PRN (12:10)
[2022-07-19] MEDS: NORMAL SALINE 5 ML DISP.SYRIN IVF SCH ×3 (04:23→23:04)
[2022-07-19] MEDS: INSULIN REGULAR, HUMAN 100 UNITS/ML, 3 ML VIAL (humuLIN R) SUBCUT PRN ×4 (05:05→20:56)
[2022-07-19 08:00] VITALS: BP_SYST 138
[2022-07-19] MEDS: POLYETHYLENE GLYCOL 3350, 17 GM/ POWD.PACK PO SCH (09:00)
[2022-07-19] MEDS: FERROUS SULFATE 300 MG/5 ML UDC PO SCH ×3 (09:40→20:46)
[2022-07-19] MEDS: DOCUSATE SODIUM 100 MG CAPSULE PO SCH ×3 (09:41→20:45)
[2022-07-19] MEDS: POTASSIUM CHLORIDE 20 MEQ TAB.PRT.SR PO SCH ×2 (09:42→20:29)
[2022-07-19] MEDS: POTASSIUM CHLORIDE 10 MEQ TAB.PRT.SR PO SCH (09:42)
[2022-07-19] MEDS: ATORVASTATIN 20 MG TABLET PO SCH ×2 (09:44→20:30)
[2022-07-19] MEDS: CALCIUM CARBONATE 500 MG/ TAB.CHEW PO SCH ×2 (09:45→20:48)
[2022-07-19] MEDS: FOLIC ACID 1 MG TABLET PO SCH (09:47)
[2022-07-19] MEDS: FUROSEMIDE 40 MG TABLET PO SCH ×2 (09:49→20:29)
[2022-07-19] MEDS: PANTOPRAZOLE SODIUM 40 MG TAB PO SCH (09:51)
[2022-07-19] MEDS: CARVEDILOL 12.5 MG TABLET (COREG) PO SCH ×2 (09:51→20:31)
[2022-07-19] MEDS: ASCORBIC ACID 500 MG TABLET PO SCH (09:52)
[2022-07-19] MEDS: CYANOCOBALAMIN (VITAMIN B-12) 1,000 MCG TABLET PO SCH (09:53)
[2022-07-19] MEDS: lisinopriL 5 MG TABLET PO SCH (09:53)
[2022-07-19] MEDS: NEPHROVITE, (FOLIC ACID/VITAMIN B COMP W-C 1 TAB) PO SCH (09:53)
[2022-07-19] MEDS: MULTIVITAMINS TAB 1 TABLET PO SCH (09:55)
[2022-07-19] MEDS: metOLazone 5 MG TABLET PO SCH (09:55)
[2022-07-19] MEDS: CHOLECALCIFEROL (VITAMIN D3) 2,000 UNIT TABLET PO SCH (09:59)
[2022-07-19] MEDS: HYDROXYCHLOROQUINE SULFATE 200 MG TABLET PO SCH ×2 (10:06→20:33)
[2022-07-19] MEDS: Effexor XR 37.5 MG PO SCH (10:09)
[2022-07-19] MEDS: DIPHENHYDRAMINE HCL 25 MG CAPSULE PO PRN ×2 (10:24→20:28)
[2022-07-19] MEDS: CEFEPIME 2 GM in D5W 100 ML IV SCH (11:30)
[2022-07-19 12:00] VITALS: BP_SYST 128
[2022-07-19] MEDS: DAPTOmycin 500 MG in NS 50 ML IV SCH (12:52)
[2022-07-19 16:00] VITALS: BP_SYST 133
[2022-07-19 19:30] VITALS: BP_SYST 120
[2022-07-19 23:21] VITALS: BP_SYST 120
[2022-07-20] MEDS: NORMAL SALINE 5 ML DISP.SYRIN IVF SCH ×3 (06:00→21:18)
[2022-07-20] MEDS: INSULIN REGULAR, HUMAN 100 UNITS/ML, 3 ML VIAL (humuLIN R) SUBCUT PRN ×4 (06:49→21:12)
[2022-07-20 07:34] VITALS: BP_SYST 121
[2022-07-20] MEDS: DIPHENHYDRAMINE HCL 25 MG CAPSULE PO PRN ×2 (08:50→20:48)
[2022-07-20] MEDS: POLYETHYLENE GLYCOL 3350, 17 GM/ POWD.PACK PO SCH (09:00)
[2022-07-20] MEDS: DOCUSATE SODIUM 100 MG CAPSULE PO SCH ×2 (09:15→21:00)
[2022-07-20] MEDS: FERROUS SULFATE 300 MG/5 ML UDC PO SCH ×2 (09:15→21:00)
[2022-07-20] MEDS: CALCIUM CARBONATE 500 MG/ TAB.CHEW PO SCH ×2 (09:16→20:48)
[2022-07-20] MEDS: Effexor XR 37.5 MG PO SCH (09:17)
[2022-07-20] MEDS: POTASSIUM CHLORIDE 20 MEQ TAB.PRT.SR PO SCH ×2 (09:18→21:03)
[2022-07-20] MEDS: POTASSIUM CHLORIDE 10 MEQ TAB.PRT.SR PO SCH (09:18)
[2022-07-20] MEDS: NEPHROVITE, (FOLIC ACID/VITAMIN B COMP W-C 1 TAB) PO SCH (09:19)
[2022-07-20] MEDS: metOLazone 5 MG TABLET PO SCH (09:20)
[2022-07-20] MEDS: MULTIVITAMINS TAB 1 TABLET PO SCH (09:21)
[2022-07-20] MEDS: CHOLECALCIFEROL (VITAMIN D3) 2,000 UNIT TABLET PO SCH (09:21)
[2022-07-20] MEDS: ATORVASTATIN 20 MG TABLET PO SCH ×2 (09:22→21:03)
[2022-07-20] MEDS: PANTOPRAZOLE SODIUM 40 MG TAB PO SCH (09:22)
[2022-07-20] MEDS: CYANOCOBALAMIN (VITAMIN B-12) 1,000 MCG TABLET PO SCH (09:22)
[2022-07-20] MEDS: ASCORBIC ACID 500 MG TABLET PO SCH (09:22)
[2022-07-20] MEDS: FUROSEMIDE 40 MG TABLET PO SCH ×2 (09:23→21:02)
[2022-07-20] MEDS: FOLIC ACID 1 MG TABLET PO SCH (09:23)
[2022-07-20] MEDS: lisinopriL 5 MG TABLET PO SCH (09:24)
[2022-07-20] MEDS: CARVEDILOL 12.5 MG TABLET (COREG) PO SCH ×2 (09:25→21:18)
[2022-07-20] MEDS: HYDROXYCHLOROQUINE SULFATE 200 MG TABLET PO SCH ×2 (09:27→20:48)
[2022-07-20 09:38] LABS: BASOPHILS # (AUTO) 0.1 K/uL (0.0-0.2); BASOPHILS % (AUTO) 0.8 % (0.0-2.0); EOSINOPHILS # (AUTO) 0.2 K/uL (0.0-0.4); EOSINOPHILS % (AUTO) 2.3 % (0.0-4.0); HEMATOCRIT 30.1 % (36-48); HEMOGLOBIN 9.9 g/dL (12.0-16.0); LYMPHOCYTES # (AUTO) 1.2 K/uL (1.0-5.5); LYMPHOCYTES % (AUTO) 13.8 % (20.5-51.5); MEAN CORPUSCULAR HEMOGLOBIN 29 pg (27-31); MEAN CORPUSCULAR HGB CONC 33 % (32-36); MEAN CORPUSCULAR VOLUME 88 fL (79.0-98.0); MONOCYTES # (AUTO) 1.1 K/uL (0.0-1.0); MONOCYTES % (AUTO) 12.4 % (1.7-9.3); NEUTROPHILS # (AUTO) 6.3 K/uL (1.8-7.7); NEUTROPHILS % (AUTO) 70.7 % (40.0-70.0); PLATELET COUNT (AUTO) 298 K/uL (130-430); RED BLOOD CELL COUNT(AUTO) 3.43 MIL/uL (4.2-6.2); RED CELL DISTRIBUTION WIDTH 13.9 % (9.0-15.0); WHITE BLOOD COUNT (AUTO) 8.9 K/uL (4.8-10.8)
[2022-07-20 10:36] LABS: ALANINE AMINOTRANSFERASE 222 U/L (12-78); ALBUMIN 2.7 g/dL (3.4-4.8); ANION GAP 11 (5-15); ASPARTATE AMINOTRANSFERASE 184 U/L (10-37); CALCIUM 10.6 mg/dL (8.4-11.0); CHLORIDE 98 mmol/L (98-107); CREATININE 2.03 mg/dL (0.55-1.30); GLUCOSE 188 mg/dL (70-99); TOTAL BILIRUBIN 0.3 mg/dL (0.0-1.0); UREA NITROGEN, BLOOD 55 mg/dL (8-21)
[2022-07-20] MEDS: CEFEPIME 2 GM in D5W 100 ML IV SCH (11:21)
[2022-07-20 12:09] VITALS: BP_SYST 120
[2022-07-20 17:12] VITALS: BP_SYST 118
[2022-07-20 19:00] VITALS: BP_SYST 123
[2022-07-20] MEDS ORDERED: LORATADINE 10 MG TABLET PO ONE (19:30)
[2022-07-20] MEDS: LORATADINE 10 MG TABLET PO SCH (19:31)
[2022-07-20 20:00] VITALS: BP_SYST 123
[2022-07-20] MEDS: ONDANSETRON HCL 4 MG/2 ML VIAL IVP PRN (22:51)
[2022-07-21 00:34] VITALS: BP_SYST 133
[2022-07-21] MEDS: NORMAL SALINE 5 ML DISP.SYRIN IVF SCH ×3 (05:31→22:22)
[2022-07-21 08:00] VITALS: BP_SYST 134
[2022-07-21] MEDS: CHOLECALCIFEROL (VITAMIN D3) 2,000 UNIT TABLET PO SCH (09:00)
[2022-07-21] MEDS: DOCUSATE SODIUM 100 MG CAPSULE PO SCH ×2 (09:00→22:20)
[2022-07-21] MEDS: POLYETHYLENE GLYCOL 3350, 17 GM/ POWD.PACK PO SCH (09:00)
[2022-07-21] MEDS: POTASSIUM CHLORIDE 10 MEQ TAB.PRT.SR PO SCH (09:00)
[2022-07-21] MEDS: FERROUS SULFATE 300 MG/5 ML UDC PO SCH ×3 (09:00→22:18)
[2022-07-21] MEDS: ATORVASTATIN 20 MG TABLET PO SCH ×2 (09:00→22:20)
[2022-07-21] MEDS: MULTIVITAMINS TAB 1 TABLET PO SCH (09:00)
[2022-07-21] MEDS: CYANOCOBALAMIN (VITAMIN B-12) 1,000 MCG TABLET PO SCH (09:00)
[2022-07-21] MEDS: metOLazone 5 MG TABLET PO SCH (09:00)
[2022-07-21] MEDS: CALCIUM CARBONATE 500 MG/ TAB.CHEW PO SCH ×2 (09:00→22:19)
[2022-07-21] MEDS: HYDROXYCHLOROQUINE SULFATE 200 MG TABLET PO SCH ×2 (09:00→22:18)
[2022-07-21] MEDS: FUROSEMIDE 40 MG TABLET PO SCH ×2 (09:00→22:20)
[2022-07-21] MEDS: LORATADINE 10 MG TABLET PO SCH (09:00)
[2022-07-21] MEDS: methIMAzole 5 MG TABLET PO SCH (09:00)
[2022-07-21] MEDS: FOLIC ACID 1 MG TABLET PO SCH (09:00)
[2022-07-21] MEDS: POTASSIUM CHLORIDE 20 MEQ TAB.PRT.SR PO SCH ×2 (09:00→22:20)
[2022-07-21] MEDS: ASCORBIC ACID 500 MG TABLET PO SCH (09:00)
[2022-07-21] MEDS: NEPHROVITE, (FOLIC ACID/VITAMIN B COMP W-C 1 TAB) PO SCH (09:00)
[2022-07-21] MEDS: Effexor XR 37.5 MG PO SCH (09:00)
[2022-07-21] MEDS: PANTOPRAZOLE SODIUM 40 MG TAB PO SCH (09:00)
[2022-07-21] MEDS: lisinopriL 5 MG TABLET PO SCH (09:00)
[2022-07-21] MEDS: CARVEDILOL 12.5 MG TABLET (COREG) PO SCH ×2 (09:00→22:21)
[2022-07-21] MEDS ORDERED: REGADENOSON 0.4 MG/5 ML SYRINGE IVP ONE (09:45)
[2022-07-21] MEDS: CEFAZOLIN 1 GM IVPB PREMIX 50 ML IV SCH ×2 (11:52→22:19)
[2022-07-21] MEDS: INSULIN REGULAR, HUMAN 100 UNITS/ML, 3 ML VIAL (humuLIN R) SUBCUT PRN ×3 (11:55→22:31)
[2022-07-21] MEDS: DIPHENHYDRAMINE HCL 25 MG CAPSULE PO PRN (16:06)
[2022-07-21 18:29] VITALS: BP_SYST 121
[2022-07-21 20:00] VITALS: BP_SYST 133
[2022-07-21] MEDS ORDERED: ceFAZolin SODIUM 2 GM in D5W 100 ML IV SCH (21:00)
[2022-07-22 00:20] VITALS: BP_SYST 126
[2022-07-22] MEDS: NORMAL SALINE 5 ML DISP.SYRIN IVF SCH ×3 (05:09→22:15)
[2022-07-22] MEDS: DIPHENHYDRAMINE HCL 25 MG CAPSULE PO PRN ×4 (06:10→23:03)
[2022-07-22] MEDS: INSULIN REGULAR, HUMAN 100 UNITS/ML, 3 ML VIAL (humuLIN R) SUBCUT PRN ×4 (06:21→22:31)
[2022-07-22 07:52] LABS: BASOPHILS # (AUTO) 0.1 K/uL (0.0-0.2); BASOPHILS % (AUTO) 0.7 % (0.0-2.0); EOSINOPHILS # (AUTO) 0.2 K/uL (0.0-0.4); EOSINOPHILS % (AUTO) 2.4 % (0.0-4.0); HEMATOCRIT 29.8 % (36-48); LYMPHOCYTES # (AUTO) 1.7 K/uL (1.0-5.5); LYMPHOCYTES % (AUTO) 20.5 % (20.5-51.5); MEAN CORPUSCULAR HEMOGLOBIN 29 pg (27-31); MEAN CORPUSCULAR HGB CONC 34 % (32-36); MEAN CORPUSCULAR VOLUME 87 fL (79.0-98.0); MONOCYTES # (AUTO) 1.1 K/uL (0.0-1.0); MONOCYTES % (AUTO) 13.9 % (1.7-9.3); NEUTROPHILS # (AUTO) 5.1 K/uL (1.8-7.7); NEUTROPHILS % (AUTO) 62.5 % (40.0-70.0); PLATELET COUNT (AUTO) 323 K/uL (130-430); RED BLOOD CELL COUNT(AUTO) 3.43 MIL/uL (4.2-6.2); RED CELL DISTRIBUTION WIDTH 13.9 % (9.0-15.0); WHITE BLOOD COUNT (AUTO) 8.2 K/uL (4.8-10.8)
[2022-07-22 08:00] VITALS: BP_SYST 119
[2022-07-22 08:19] LABS: ANION GAP 12 (5-15); CALCIUM 10.4 mg/dL (8.4-11.0); CHLORIDE 98 mmol/L (98-107); CREATININE 2.01 mg/dL (0.55-1.30); GLUCOSE 220 mg/dL (70-99); UREA NITROGEN, BLOOD 69 mg/dL (8-21)
[2022-07-22] MEDS: CALCIUM CARBONATE 500 MG/ TAB.CHEW PO SCH ×2 (09:00→22:14)
[2022-07-22] MEDS: Effexor XR 37.5 MG PO SCH (09:00)
[2022-07-22] MEDS: HYDROXYCHLOROQUINE SULFATE 200 MG TABLET PO SCH ×2 (09:00→22:23)
[2022-07-22] MEDS: CHOLECALCIFEROL (VITAMIN D3) 2,000 UNIT TABLET PO SCH (09:00)
[2022-07-22] MEDS: POTASSIUM CHLORIDE 20 MEQ TAB.PRT.SR PO SCH ×2 (09:59→22:22)
[2022-07-22] MEDS: PANTOPRAZOLE SODIUM 40 MG TAB PO SCH (10:00)
[2022-07-22] MEDS: POTASSIUM CHLORIDE 10 MEQ TAB.PRT.SR PO SCH (10:00)
[2022-07-22] MEDS: metOLazone 5 MG TABLET PO SCH (10:00)
[2022-07-22] MEDS: CARVEDILOL 12.5 MG TABLET (COREG) PO SCH ×2 (10:01→22:22)
[2022-07-22] MEDS: MULTIVITAMINS TAB 1 TABLET PO SCH (10:02)
[2022-07-22] MEDS: FOLIC ACID 1 MG TABLET PO SCH (10:02)
[2022-07-22] MEDS: FUROSEMIDE 40 MG TABLET PO SCH ×2 (10:03→22:22)
[2022-07-22] MEDS: DOCUSATE SODIUM 100 MG CAPSULE PO SCH ×2 (10:03→22:14)
[2022-07-22] MEDS: LORATADINE 10 MG TABLET PO SCH (10:04)
[2022-07-22] MEDS: CYANOCOBALAMIN (VITAMIN B-12) 1,000 MCG TABLET PO SCH (10:04)
[2022-07-22] MEDS: ASCORBIC ACID 500 MG TABLET PO SCH (10:04)
[2022-07-22] MEDS: ATORVASTATIN 20 MG TABLET PO SCH ×2 (10:05→22:13)
[2022-07-22] MEDS: FERROUS SULFATE 300 MG/5 ML UDC PO SCH ×2 (10:05→22:13)
[2022-07-22] MEDS: lisinopriL 5 MG TABLET PO SCH (10:06)
[2022-07-22] MEDS: NEPHROVITE, (FOLIC ACID/VITAMIN B COMP W-C 1 TAB) PO SCH (10:06)
[2022-07-22] MEDS: POLYETHYLENE GLYCOL 3350, 17 GM/ POWD.PACK PO SCH (10:07)
[2022-07-22] MEDS: ACETAMINOPHEN 500 MG TABLET PO PRN ×2 (10:39→16:32)
[2022-07-22 11:46] VITALS: BP_SYST 139
[2022-07-22] MEDS: CEFAZOLIN 1 GM IVPB PREMIX 50 ML IV SCH ×2 (12:55→22:26)
[2022-07-22 19:10] VITALS: BP_SYST 125
[2022-07-22 20:00] VITALS: BP_SYST 121
[2022-07-22 23:54] VITALS: BP_SYST 129
[2022-07-23] MEDS: NORMAL SALINE 5 ML DISP.SYRIN IVF SCH ×3 (05:11→22:22)
[2022-07-23] MEDS: ONDANSETRON HCL 4 MG/2 ML VIAL IVP PRN (06:04)
[2022-07-23] MEDS: INSULIN REGULAR, HUMAN 100 UNITS/ML, 3 ML VIAL (humuLIN R) SUBCUT PRN ×4 (06:06→21:56)
[2022-07-23] MEDS: POLYETHYLENE GLYCOL 3350, 17 GM/ POWD.PACK PO SCH (09:00)
[2022-07-23] MEDS: LORATADINE 10 MG TABLET PO SCH (09:00)
[2022-07-23] MEDS: CALCIUM CARBONATE 500 MG/ TAB.CHEW PO SCH ×2 (09:00→21:02)
[2022-07-23] MEDS: FERROUS SULFATE 300 MG/5 ML UDC PO SCH ×2 (09:00→21:01)
[2022-07-23] MEDS: FUROSEMIDE 40 MG TABLET PO SCH ×2 (10:04→21:02)
[2022-07-23] MEDS: PANTOPRAZOLE SODIUM 40 MG TAB PO SCH (10:04)
[2022-07-23] MEDS: lisinopriL 5 MG TABLET PO SCH (10:05)
[2022-07-23] MEDS: ATORVASTATIN 20 MG TABLET PO SCH (10:05)
[2022-07-23] MEDS: MULTIVITAMINS TAB 1 TABLET PO SCH (10:06)
[2022-07-23] MEDS: CARVEDILOL 12.5 MG TABLET (COREG) PO SCH ×2 (10:06→21:03)
[2022-07-23] MEDS: FOLIC ACID 1 MG TABLET PO SCH (10:06)
[2022-07-23] MEDS: ASCORBIC ACID 500 MG TABLET PO SCH (10:06)
[2022-07-23] MEDS: CYANOCOBALAMIN (VITAMIN B-12) 1,000 MCG TABLET PO SCH (10:07)
[2022-07-23] MEDS: DOCUSATE SODIUM 100 MG CAPSULE PO SCH ×2 (10:09→21:04)
[2022-07-23] MEDS: NEPHROVITE, (FOLIC ACID/VITAMIN B COMP W-C 1 TAB) PO SCH (10:09)
[2022-07-23] MEDS: CHOLECALCIFEROL (VITAMIN D3) 2,000 UNIT TABLET PO SCH (10:10)
[2022-07-23] MEDS: POTASSIUM CHLORIDE 10 MEQ TAB.PRT.SR PO SCH (10:11)
[2022-07-23] MEDS: metOLazone 5 MG TABLET PO SCH (10:11)
[2022-07-23] MEDS: POTASSIUM CHLORIDE 20 MEQ TAB.PRT.SR PO SCH ×2 (10:12→21:03)
[2022-07-23] MEDS: CEFAZOLIN 1 GM IVPB PREMIX 50 ML IV SCH ×2 (10:41→22:22)
[2022-07-23] MEDS: Effexor XR 37.5 MG PO SCH (10:41)
[2022-07-23 12:00] VITALS: BP_SYST 121
[2022-07-23] MEDS: methIMAzole 5 MG TABLET PO SCH (12:19)
[2022-07-23] MEDS: HYDROXYCHLOROQUINE SULFATE 200 MG TABLET PO SCH ×2 (12:20→21:05)
[2022-07-23 16:45] VITALS: BP_SYST 125
[2022-07-23 23:00] VITALS: BP_SYST 116
[2022-07-24] VITALS: BP_SYST 116
[2022-07-24] MEDS: INSULIN REGULAR, HUMAN 100 UNITS/ML, 3 ML VIAL (humuLIN R) SUBCUT PRN ×4 (06:27→23:06)
[2022-07-24] MEDS: NORMAL SALINE 5 ML DISP.SYRIN IVF SCH ×3 (06:29→22:48)
[2022-07-24] MEDS: DIPHENHYDRAMINE HCL 25 MG CAPSULE PO PRN ×2 (07:53→17:49)
[2022-07-24] MEDS: DOCUSATE SODIUM 100 MG CAPSULE PO SCH ×2 (08:28→22:24)
[2022-07-24] MEDS: CARVEDILOL 12.5 MG TABLET (COREG) PO SCH ×2 (08:28→22:24)
[2022-07-24] MEDS: LORATADINE 10 MG TABLET PO SCH (08:28)
[2022-07-24] MEDS: Effexor XR 37.5 MG PO SCH (08:29)
[2022-07-24] MEDS: POTASSIUM CHLORIDE 20 MEQ TAB.PRT.SR PO SCH ×2 (08:30→22:48)
[2022-07-24] MEDS: FOLIC ACID 1 MG TABLET PO SCH (08:30)
[2022-07-24] MEDS: FERROUS SULFATE 300 MG/5 ML UDC PO SCH ×2 (08:30→22:22)
[2022-07-24] MEDS: POTASSIUM CHLORIDE 10 MEQ TAB.PRT.SR PO SCH (08:31)
[2022-07-24] MEDS: POLYETHYLENE GLYCOL 3350, 17 GM/ POWD.PACK PO SCH (08:31)
[2022-07-24] MEDS: FUROSEMIDE 40 MG TABLET PO SCH ×2 (08:31→22:23)
[2022-07-24] MEDS: MULTIVITAMINS TAB 1 TABLET PO SCH (08:31)
[2022-07-24] MEDS: NEPHROVITE, (FOLIC ACID/VITAMIN B COMP W-C 1 TAB) PO SCH (08:32)
[2022-07-24] MEDS: lisinopriL 5 MG TABLET PO SCH (08:33)
[2022-07-24] MEDS: ASCORBIC ACID 500 MG TABLET PO SCH (08:33)
[2022-07-24] MEDS: CALCIUM CARBONATE 500 MG/ TAB.CHEW PO SCH ×2 (08:33→22:22)
[2022-07-24] MEDS: CYANOCOBALAMIN (VITAMIN B-12) 1,000 MCG TABLET PO SCH (08:33)
[2022-07-24] MEDS: PANTOPRAZOLE SODIUM 40 MG TAB PO SCH (08:33)
[2022-07-24] MEDS: metOLazone 5 MG TABLET PO SCH (08:35)
[2022-07-24 08:43] LABS: ALANINE AMINOTRANSFERASE 61 U/L (12-78); ALBUMIN 2.9 g/dL (3.4-4.8); ANION GAP 12 (5-15); ASPARTATE AMINOTRANSFERASE 26 U/L (10-37); CHLORIDE 99 mmol/L (98-107); CREATININE 1.94 mg/dL (0.55-1.30); GLUCOSE 183 mg/dL (70-99); TOTAL BILIRUBIN 0.3 mg/dL (0.0-1.0); UREA NITROGEN, BLOOD 65 mg/dL (8-21)
[2022-07-24] MEDS: CHOLECALCIFEROL (VITAMIN D3) 2,000 UNIT TABLET PO SCH (09:53)
[2022-07-24] MEDS: HYDROXYCHLOROQUINE SULFATE 200 MG TABLET PO SCH ×2 (09:53→21:00)
[2022-07-24 11:44] VITALS: BP_SYST 127
[2022-07-24] MEDS: CEFAZOLIN 1 GM IVPB PREMIX 50 ML IV SCH ×2 (12:17→22:47)
[2022-07-24 17:00] VITALS: BP_SYST 142
[2022-07-24] MEDS: ACETAMINOPHEN 500 MG TABLET PO PRN (22:21)
[2022-07-24 22:37] VITALS: BP_SYST 133
[2022-07-25 00:25] VITALS: BP_SYST 121
[2022-07-25] MEDS: NORMAL SALINE 5 ML DISP.SYRIN IVF SCH ×3 (06:16→21:35)
[2022-07-25 07:00] VITALS: BP_SYST 109
[2022-07-25 08:00] VITALS: BP_SYST 109
[2022-07-25] MEDS: LORATADINE 10 MG TABLET PO SCH (09:26)
[2022-07-25] MEDS: lisinopriL 5 MG TABLET PO SCH (09:27)
[2022-07-25] MEDS: MULTIVITAMINS TAB 1 TABLET PO SCH (09:27)
[2022-07-25] MEDS: ASCORBIC ACID 500 MG TABLET PO SCH (09:28)
[2022-07-25] MEDS: metOLazone 5 MG TABLET PO SCH (09:28)
[2022-07-25] MEDS: FERROUS SULFATE 300 MG/5 ML UDC PO SCH ×2 (09:28→21:30)
[2022-07-25] MEDS: POTASSIUM CHLORIDE 20 MEQ TAB.PRT.SR PO SCH ×2 (09:28→10:22)
[2022-07-25] MEDS: POLYETHYLENE GLYCOL 3350, 17 GM/ POWD.PACK PO SCH (09:28)
[2022-07-25] MEDS: FUROSEMIDE 40 MG TABLET PO SCH ×2 (09:29→21:32)
[2022-07-25] MEDS: PANTOPRAZOLE SODIUM 40 MG TAB PO SCH (09:29)
[2022-07-25] MEDS: CARVEDILOL 12.5 MG TABLET (COREG) PO SCH ×2 (09:29→21:33)
[2022-07-25] MEDS: FOLIC ACID 1 MG TABLET PO SCH (09:30)
[2022-07-25] MEDS: DOCUSATE SODIUM 100 MG CAPSULE PO SCH ×2 (09:30→21:34)
[2022-07-25] MEDS: CYANOCOBALAMIN (VITAMIN B-12) 1,000 MCG TABLET PO SCH (09:30)
[2022-07-25] MEDS: CALCIUM CARBONATE 500 MG/ TAB.CHEW PO SCH ×2 (10:22→21:32)
[2022-07-25] MEDS: POTASSIUM CHLORIDE 10 MEQ TAB.PRT.SR PO SCH (10:24)
[2022-07-25] MEDS: CHOLECALCIFEROL (VITAMIN D3) 2,000 UNIT TABLET PO SCH (10:26)
[2022-07-25] MEDS: NEPHROVITE, (FOLIC ACID/VITAMIN B COMP W-C 1 TAB) PO SCH (10:38)
[2022-07-25] MEDS: Effexor XR 37.5 MG PO SCH (10:38)
[2022-07-25] MEDS: HYDROXYCHLOROQUINE SULFATE 200 MG TABLET PO SCH ×2 (10:39→21:30)
[2022-07-25] MEDS: methIMAzole 5 MG TABLET PO SCH (10:39)
[2022-07-25] MEDS: INSULIN REGULAR, HUMAN 100 UNITS/ML, 3 ML VIAL (humuLIN R) SUBCUT PRN ×3 (12:26→21:38)
[2022-07-25] MEDS: CEFAZOLIN 1 GM IVPB PREMIX 50 ML IV SCH ×2 (13:30→23:00)
[2022-07-25 20:32] VITALS: BP_SYST 122
[2022-07-25] MEDS: DIPHENHYDRAMINE HCL 25 MG CAPSULE PO PRN (21:29)
[2022-07-26 00:30] VITALS: BP_SYST 99
[2022-07-26] MEDS ORDERED: CEFA1SYR4 IV (04:25)
[2022-07-26 05:04] VITALS: BP_SYST 94
[2022-07-26] MEDS: NORMAL SALINE 5 ML DISP.SYRIN IVF SCH ×3 (06:42→23:09)
[2022-07-26 06:50] LABS: INR 1.2 (0.8-1.2); PROTHROMBIN TIME 11.8 SECS (9.5-12.5)
[2022-07-26 07:00] LABS: BASOPHILS # (AUTO) 0.1 K/uL (0.0-0.2); BASOPHILS % (AUTO) 0.8 % (0.0-2.0); EOSINOPHILS # (AUTO) 0.2 K/uL (0.0-0.4); HEMATOCRIT 29.5 % (36-48); HEMOGLOBIN 9.8 g/dL (12.0-16.0); LYMPHOCYTES # (AUTO) 2.6 K/uL (1.0-5.5); LYMPHOCYTES % (AUTO) 26.1 % (20.5-51.5); MEAN CORPUSCULAR HEMOGLOBIN 29 pg (27-31); MEAN CORPUSCULAR HGB CONC 33 % (32-36); MEAN CORPUSCULAR VOLUME 86 fL (79.0-98.0); MONOCYTES # (AUTO) 0.9 K/uL (0.0-1.0); MONOCYTES % (AUTO) 8.7 % (1.7-9.3); NEUTROPHILS # (AUTO) 6.2 K/uL (1.8-7.7); NEUTROPHILS % (AUTO) 62.4 % (40.0-70.0); PLATELET COUNT (AUTO) 345 K/uL (130-430); RED BLOOD CELL COUNT(AUTO) 3.41 MIL/uL (4.2-6.2); RED CELL DISTRIBUTION WIDTH 13.6 % (9.0-15.0)
[2022-07-26 08:00] VITALS: BP_SYST 107
[2022-07-26] MEDS: HYDROXYCHLOROQUINE SULFATE 200 MG TABLET PO SCH ×2 (09:00→21:43)
[2022-07-26] MEDS: CALCIUM CARBONATE 500 MG/ TAB.CHEW PO SCH ×2 (09:00→21:00)
[2022-07-26] MEDS: metOLazone 5 MG TABLET PO SCH (09:22)
[2022-07-26] MEDS: FERROUS SULFATE 300 MG/5 ML UDC PO SCH ×2 (09:26→21:35)
[2022-07-26] MEDS: lisinopriL 5 MG TABLET PO SCH (09:28)
[2022-07-26] MEDS: CARVEDILOL 12.5 MG TABLET (COREG) PO SCH ×2 (09:29→21:38)
[2022-07-26] MEDS: POLYETHYLENE GLYCOL 3350, 17 GM/ POWD.PACK PO SCH (09:29)
[2022-07-26] MEDS: ASCORBIC ACID 500 MG TABLET PO SCH (09:29)
[2022-07-26] MEDS: LORATADINE 10 MG TABLET PO SCH (09:30)
[2022-07-26] MEDS: FUROSEMIDE 40 MG TABLET PO SCH ×2 (09:30→21:35)
[2022-07-26] MEDS: DOCUSATE SODIUM 100 MG CAPSULE PO SCH ×2 (09:30→21:36)
[2022-07-26] MEDS: NEPHROVITE, (FOLIC ACID/VITAMIN B COMP W-C 1 TAB) PO SCH (09:31)
[2022-07-26] MEDS: CYANOCOBALAMIN (VITAMIN B-12) 1,000 MCG TABLET PO SCH (09:32)
[2022-07-26] MEDS: POTASSIUM CHLORIDE 10 MEQ TAB.PRT.SR PO SCH (09:33)
[2022-07-26] MEDS: Effexor XR 37.5 MG PO SCH (09:33)
[2022-07-26] MEDS: FOLIC ACID 1 MG TABLET PO SCH (09:33)
[2022-07-26] MEDS: PANTOPRAZOLE SODIUM 40 MG TAB PO SCH (09:33)
[2022-07-26] MEDS: DIPHENHYDRAMINE HCL 25 MG CAPSULE PO PRN (09:34)
[2022-07-26] MEDS: CHOLECALCIFEROL (VITAMIN D3) 2,000 UNIT TABLET PO SCH (09:41)
[2022-07-26] MEDS: MULTIVITAMINS TAB 1 TABLET PO SCH (09:42)
[2022-07-26] MEDS: POTASSIUM CHLORIDE 20 MEQ TAB.PRT.SR PO SCH ×2 (09:42→21:43)
[2022-07-26 11:06] LABS: ALANINE AMINOTRANSFERASE 49 U/L (12-78); ANION GAP 15 (5-15); ASPARTATE AMINOTRANSFERASE 25 U/L (10-37); CALCIUM 9.9 mg/dL (8.4-11.0); CHLORIDE 99 mmol/L (98-107); CREATININE 1.77 mg/dL (0.55-1.30); GLUCOSE 83 mg/dL (70-99); UREA NITROGEN, BLOOD 74 mg/dL (8-21)
[2022-07-26 11:18] LABS: TOTAL BILIRUBIN 0.3 mg/dL (0.0-1.0)
[2022-07-26] MEDS: CEFAZOLIN 1 GM IVPB PREMIX 50 ML IV SCH ×2 (11:32→21:35)
[2022-07-26] MEDS: INSULIN REGULAR, HUMAN 100 UNITS/ML, 3 ML VIAL (humuLIN R) SUBCUT PRN ×3 (11:41→23:14)
[2022-07-26 11:50] VITALS: BP_SYST 110
[2022-07-26 17:05] VITALS: BP_SYST 105
[2022-07-26] MEDS: ACETAMINOPHEN 500 MG TABLET PO PRN (18:17)
[2022-07-27] MEDS: ACETAMINOPHEN 500 MG TABLET PO PRN ×2 (00:46→15:49)
[2022-07-27 01:43] VITALS: BP_SYST 107
[2022-07-27] MEDS: NORMAL SALINE 5 ML DISP.SYRIN IVF SCH ×3 (06:00→21:36)
[2022-07-27 06:14] LABS: ANION GAP 9 (5-15); C-REACTIVE PROTEIN QUANT 0.7 mg/dL (0-0.5); CHLORIDE 97 mmol/L (98-107); CREATININE 1.85 mg/dL (0.55-1.30); GLUCOSE 192 mg/dL (70-99); UREA NITROGEN, BLOOD 84 mg/dL (8-21)
[2022-07-27] MEDS: INSULIN REGULAR, HUMAN 100 UNITS/ML, 3 ML VIAL (humuLIN R) SUBCUT PRN ×4 (06:19→21:47)
[2022-07-27 06:34] LABS: BASOPHILS # (AUTO) 0.1 K/uL (0.0-0.2); BASOPHILS % (AUTO) 0.7 % (0.0-2.0); EOSINOPHILS # (AUTO) 0.2 K/uL (0.0-0.4); EOSINOPHILS % (AUTO) 2.2 % (0.0-4.0); HEMATOCRIT 29.8 % (36-48); LYMPHOCYTES # (AUTO) 2.2 K/uL (1.0-5.5); LYMPHOCYTES % (AUTO) 27.6 % (20.5-51.5); MEAN CORPUSCULAR HEMOGLOBIN 29 pg (27-31); MEAN CORPUSCULAR HGB CONC 33 % (32-36); MEAN CORPUSCULAR VOLUME 86 fL (79.0-98.0); MONOCYTES # (AUTO) 0.7 K/uL (0.0-1.0); MONOCYTES % (AUTO) 8.6 % (1.7-9.3); NEUTROPHILS # (AUTO) 4.8 K/uL (1.8-7.7); NEUTROPHILS % (AUTO) 60.9 % (40.0-70.0); PLATELET COUNT (AUTO) 320 K/uL (130-430); RED BLOOD CELL COUNT(AUTO) 3.45 MIL/uL (4.2-6.2); RED CELL DISTRIBUTION WIDTH 13.9 % (9.0-15.0); WHITE BLOOD COUNT (AUTO) 7.9 K/uL (4.8-10.8)
[2022-07-27 07:14] LABS: ERYTHROCYTE SEDIMENTATION RATE 67 MM/HR (0-20)
[2022-07-27 08:00] VITALS: BP_SYST 132
[2022-07-27] MEDS: Effexor XR 37.5 MG PO SCH (08:41)
[2022-07-27] MEDS: HYDROXYCHLOROQUINE SULFATE 200 MG TABLET PO SCH ×2 (08:42→21:00)
[2022-07-27] MEDS: POTASSIUM CHLORIDE 20 MEQ TAB.PRT.SR PO SCH ×2 (08:43→21:35)
[2022-07-27] MEDS: metOLazone 5 MG TABLET PO SCH (08:43)
[2022-07-27] MEDS: MULTIVITAMINS TAB 1 TABLET PO SCH (08:43)
[2022-07-27] MEDS: CYANOCOBALAMIN (VITAMIN B-12) 1,000 MCG TABLET PO SCH (08:44)
[2022-07-27] MEDS: LORATADINE 10 MG TABLET PO SCH (08:44)
[2022-07-27] MEDS: PANTOPRAZOLE SODIUM 40 MG TAB PO SCH (08:47)
[2022-07-27] MEDS: FOLIC ACID 1 MG TABLET PO SCH (08:49)
[2022-07-27] MEDS: FERROUS SULFATE 300 MG/5 ML UDC PO SCH ×2 (08:50→21:19)
[2022-07-27] MEDS: CARVEDILOL 12.5 MG TABLET (COREG) PO SCH ×2 (08:50→21:16)
[2022-07-27] MEDS: POLYETHYLENE GLYCOL 3350, 17 GM/ POWD.PACK PO SCH (08:51)
[2022-07-27] MEDS: NEPHROVITE, (FOLIC ACID/VITAMIN B COMP W-C 1 TAB) PO SCH (08:53)
[2022-07-27] MEDS: lisinopriL 5 MG TABLET PO SCH (08:53)
[2022-07-27] MEDS: DOCUSATE SODIUM 100 MG CAPSULE PO SCH ×2 (08:54→21:19)
[2022-07-27] MEDS: ASCORBIC ACID 500 MG TABLET PO SCH (08:55)
[2022-07-27] MEDS: FUROSEMIDE 40 MG TABLET PO SCH ×2 (08:57→21:17)
[2022-07-27] MEDS: POTASSIUM CHLORIDE 10 MEQ TAB.PRT.SR PO SCH (08:57)
[2022-07-27] MEDS: CALCIUM CARBONATE 500 MG/ TAB.CHEW PO SCH ×2 (08:58→21:17)
[2022-07-27] MEDS: CHOLECALCIFEROL (VITAMIN D3) 2,000 UNIT TABLET PO SCH (08:59)
[2022-07-27] MEDS: DIPHENHYDRAMINE HCL 25 MG CAPSULE PO PRN (09:56)
[2022-07-27] MEDS: CEFAZOLIN 1 GM IVPB PREMIX 50 ML IV SCH ×2 (11:30→21:36)
[2022-07-27 12:07] VITALS: BP_SYST 127
[2022-07-27 17:59] VITALS: BP_SYST 127
[2022-07-27 21:12] VITALS: BP_SYST 122
[2022-07-28 04:00] VITALS: BP_SYST 110
[2022-07-28] MEDS: NORMAL SALINE 5 ML DISP.SYRIN IVF SCH ×3 (06:20→21:22)
[2022-07-28 07:11] LABS: BASOPHILS # (AUTO) 0.1 K/uL (0.0-0.2); EOSINOPHILS # (AUTO) 0.2 K/uL (0.0-0.4); EOSINOPHILS % (AUTO) 2.8 % (0.0-4.0); HEMATOCRIT 30.7 % (36-48); HEMOGLOBIN 10.2 g/dL (12.0-16.0); LYMPHOCYTES # (AUTO) 2.1 K/uL (1.0-5.5); LYMPHOCYTES % (AUTO) 26.2 % (20.5-51.5); MEAN CORPUSCULAR HEMOGLOBIN 29 pg (27-31); MEAN CORPUSCULAR HGB CONC 33 % (32-36); MEAN CORPUSCULAR VOLUME 86 fL (79.0-98.0); MONOCYTES # (AUTO) 0.6 K/uL (0.0-1.0); MONOCYTES % (AUTO) 8.1 % (1.7-9.3); NEUTROPHILS % (AUTO) 61.9 % (40.0-70.0); PLATELET COUNT (AUTO) 304 K/uL (130-430); RED BLOOD CELL COUNT(AUTO) 3.56 MIL/uL (4.2-6.2); RED CELL DISTRIBUTION WIDTH 13.7 % (9.0-15.0)
[2022-07-28 08:00] VITALS: BP_SYST 158
[2022-07-28 08:09] LABS: ALANINE AMINOTRANSFERASE 27 U/L (12-78); ALBUMIN 3.1 g/dL (3.4-4.8); ANION GAP 8 (5-15); ASPARTATE AMINOTRANSFERASE 20 U/L (10-37); C-REACTIVE PROTEIN QUANT 0.6 mg/dL (0-0.5); CALCIUM 9.9 mg/dL (8.4-11.0); CHLORIDE 98 mmol/L (98-107); CREATININE 2.03 mg/dL (0.55-1.30); GLUCOSE 143 mg/dL (70-99); PHOSPHORUS 4.4 mg/dL (2.7-4.5); TOTAL BILIRUBIN 0.2 mg/dL (0.0-1.0); UREA NITROGEN, BLOOD 81 mg/dL (8-21)
[2022-07-28] MEDS: CALCIUM CARBONATE 500 MG/ TAB.CHEW PO SCH ×2 (09:00→09:21)
[2022-07-28 09:01] LABS: ERYTHROCYTE SEDIMENTATION RATE 83 MM/HR (0-20)
[2022-07-28] MEDS: metOLazone 5 MG TABLET PO SCH (09:15)
[2022-07-28] MEDS: POLYETHYLENE GLYCOL 3350, 17 GM/ POWD.PACK PO SCH (09:15)
[2022-07-28] MEDS: CHOLECALCIFEROL (VITAMIN D3) 2,000 UNIT TABLET PO SCH (09:16)
[2022-07-28] MEDS: LORATADINE 10 MG TABLET PO SCH (09:18)
[2022-07-28] MEDS: POTASSIUM CHLORIDE 10 MEQ TAB.PRT.SR PO SCH (09:18)
[2022-07-28] MEDS: CYANOCOBALAMIN (VITAMIN B-12) 1,000 MCG TABLET PO SCH (09:18)
[2022-07-28] MEDS: FUROSEMIDE 40 MG TABLET PO SCH ×2 (09:18→21:14)
[2022-07-28] MEDS: CARVEDILOL 12.5 MG TABLET (COREG) PO SCH ×2 (09:19→21:14)
[2022-07-28] MEDS: lisinopriL 5 MG TABLET PO SCH (09:21)
[2022-07-28] MEDS: FOLIC ACID 1 MG TABLET PO SCH (09:21)
[2022-07-28] MEDS: PANTOPRAZOLE SODIUM 40 MG TAB PO SCH (09:21)
[2022-07-28] MEDS: ASCORBIC ACID 500 MG TABLET PO SCH (09:21)
[2022-07-28] MEDS: FERROUS SULFATE 300 MG/5 ML UDC PO SCH ×3 (09:22→21:13)
[2022-07-28] MEDS: MULTIVITAMINS TAB 1 TABLET PO SCH (09:22)
[2022-07-28] MEDS: Effexor XR 37.5 MG PO SCH (09:50)
[2022-07-28] MEDS: DOCUSATE SODIUM 100 MG CAPSULE PO SCH ×2 (09:51→21:14)
[2022-07-28] MEDS: methIMAzole 5 MG TABLET PO SCH (09:51)
[2022-07-28] MEDS: NEPHROVITE, (FOLIC ACID/VITAMIN B COMP W-C 1 TAB) PO SCH (09:58)
[2022-07-28] MEDS: CEFAZOLIN 1 GM IVPB PREMIX 50 ML IV SCH ×2 (10:59→22:30)
[2022-07-28] MEDS: HYDROXYCHLOROQUINE SULFATE 200 MG TABLET PO SCH ×2 (10:59→21:22)
[2022-07-28] MEDS: INSULIN REGULAR, HUMAN 100 UNITS/ML, 3 ML VIAL (humuLIN R) SUBCUT PRN ×3 (11:21→21:54)
[2022-07-28] MEDS: ACETAMINOPHEN 500 MG TABLET PO PRN (11:50)
[2022-07-28 12:25] VITALS: BP_SYST 111
[2022-07-28] MEDS ORDERED: BALSAM PERU/CASTOR OIL 56.7 GM OINT...G. TP PRN (16:30)
[2022-07-28] MEDS ORDERED: BALSAM PERU/CASTOR OIL 56.7 GM OINT...G. TP ONE (17:30)
[2022-07-28 18:13] VITALS: BP_SYST 115
[2022-07-28 20:00] VITALS: BP_SYST 120
[2022-07-28] MEDS ORDERED: CALCIUM CARBONATE 500 MG/ TAB.CHEW PO ONE (21:45)
[2022-07-29] VITALS: BP_SYST 131
[2022-07-29] MEDS: NORMAL SALINE 5 ML DISP.SYRIN IVF SCH ×3 (06:09→20:34)
[2022-07-29 07:52] LABS: BASOPHILS # (AUTO) 0.1 K/uL (0.0-0.2); BASOPHILS % (AUTO) 1.2 % (0.0-2.0); EOSINOPHILS # (AUTO) 0.2 K/uL (0.0-0.4); EOSINOPHILS % (AUTO) 2.6 % (0.0-4.0); HEMATOCRIT 30.1 % (36-48); HEMOGLOBIN 9.9 g/dL (12.0-16.0); LYMPHOCYTES # (AUTO) 1.9 K/uL (1.0-5.5); LYMPHOCYTES % (AUTO) 24.5 % (20.5-51.5); MEAN CORPUSCULAR HEMOGLOBIN 29 pg (27-31); MEAN CORPUSCULAR HGB CONC 33 % (32-36); MEAN CORPUSCULAR VOLUME 86 fL (79.0-98.0); MONOCYTES # (AUTO) 0.6 K/uL (0.0-1.0); MONOCYTES % (AUTO) 7.6 % (1.7-9.3); NEUTROPHILS # (AUTO) 5.1 K/uL (1.8-7.7); NEUTROPHILS % (AUTO) 64.1 % (40.0-70.0); PLATELET COUNT (AUTO) 284 K/uL (130-430); RED BLOOD CELL COUNT(AUTO) 3.49 MIL/uL (4.2-6.2); WHITE BLOOD COUNT (AUTO) 7.9 K/uL (4.8-10.8)
[2022-07-29 08:00] VITALS: BP_SYST 98
[2022-07-29 08:29] LABS: ANION GAP 10 (5-15); C-REACTIVE PROTEIN QUANT 0.5 mg/dL (0-0.5); CALCIUM 10.2 mg/dL (8.4-11.0); CHLORIDE 97 mmol/L (98-107); CREATININE 1.88 mg/dL (0.55-1.30); GLUCOSE 144 mg/dL (70-99); UREA NITROGEN, BLOOD 83 mg/dL (8-21)
[2022-07-29] MEDS: FERROUS SULFATE 300 MG/5 ML UDC PO SCH ×4 (09:00→20:35)
[2022-07-29] MEDS: Effexor XR 37.5 MG PO SCH (09:21)
[2022-07-29] MEDS: HYDROXYCHLOROQUINE SULFATE 200 MG TABLET PO SCH ×2 (09:21→20:32)
[2022-07-29] MEDS: MULTIVITAMINS TAB 1 TABLET PO SCH (09:22)
[2022-07-29] MEDS: POLYETHYLENE GLYCOL 3350, 17 GM/ POWD.PACK PO SCH (09:22)
[2022-07-29] MEDS: ASCORBIC ACID 500 MG TABLET PO SCH (09:22)
[2022-07-29] MEDS: LORATADINE 10 MG TABLET PO SCH (09:22)
[2022-07-29] MEDS: CHOLECALCIFEROL (VITAMIN D3) 2,000 UNIT TABLET PO SCH (09:22)
[2022-07-29] MEDS: PANTOPRAZOLE SODIUM 40 MG TAB PO SCH (09:23)
[2022-07-29] MEDS: POTASSIUM CHLORIDE 10 MEQ TAB.PRT.SR PO SCH (09:24)
[2022-07-29] MEDS: FOLIC ACID 1 MG TABLET PO SCH (09:24)
[2022-07-29] MEDS: DOCUSATE SODIUM 100 MG CAPSULE PO SCH ×2 (09:24→20:32)
[2022-07-29] MEDS: CALCIUM CARBONATE 500 MG/ TAB.CHEW PO SCH ×2 (09:24→20:32)
[2022-07-29] MEDS: NEPHROVITE, (FOLIC ACID/VITAMIN B COMP W-C 1 TAB) PO SCH (09:24)
[2022-07-29] MEDS: CYANOCOBALAMIN (VITAMIN B-12) 1,000 MCG TABLET PO SCH (09:25)
[2022-07-29] MEDS: BALSAM PERU/CASTOR OIL 56.7 GM OINT...G. TP SCH (09:37)
[2022-07-29 10:41] LABS: ERYTHROCYTE SEDIMENTATION RATE 82 MM/HR (0-20)
[2022-07-29] MEDS: metOLazone 5 MG TABLET PO SCH (10:54)
[2022-07-29] MEDS: FUROSEMIDE 40 MG TABLET PO SCH ×2 (10:54→20:32)
[2022-07-29] MEDS: CARVEDILOL 12.5 MG TABLET (COREG) PO SCH ×2 (10:55→20:31)
[2022-07-29] MEDS: lisinopriL 5 MG TABLET PO SCH (10:55)
[2022-07-29] MEDS: CEFAZOLIN 1 GM IVPB PREMIX 50 ML IV SCH ×2 (11:48→22:59)
[2022-07-29] MEDS: INSULIN REGULAR, HUMAN 100 UNITS/ML, 3 ML VIAL (humuLIN R) SUBCUT PRN ×3 (11:52→20:30)
[2022-07-29 12:00] VITALS: BP_SYST 112
[2022-07-29 16:00] VITALS: BP_SYST 114
[2022-07-29 20:00] VITALS: BP_SYST 114
[2022-07-30 00:59] VITALS: BP_SYST 113
[2022-07-30] MEDS: NORMAL SALINE 5 ML DISP.SYRIN IVF SCH ×2 (06:05→15:09)
[2022-07-30] MEDS: INSULIN REGULAR, HUMAN 100 UNITS/ML, 3 ML VIAL (humuLIN R) SUBCUT PRN ×2 (06:15→11:44)
[2022-07-30 08:56] VITALS: BP_SYST 114
[2022-07-30] MEDS: DOCUSATE SODIUM 100 MG CAPSULE PO SCH (09:03)
[2022-07-30] MEDS: NEPHROVITE, (FOLIC ACID/VITAMIN B COMP W-C 1 TAB) PO SCH (09:04)
[2022-07-30] MEDS: FERROUS SULFATE 300 MG/5 ML UDC PO SCH (09:04)
[2022-07-30] MEDS: LORATADINE 10 MG TABLET PO SCH (09:05)
[2022-07-30] MEDS: CALCIUM CARBONATE 500 MG/ TAB.CHEW PO SCH (09:05)
[2022-07-30] MEDS: ASCORBIC ACID 500 MG TABLET PO SCH (09:05)
[2022-07-30] MEDS: CHOLECALCIFEROL (VITAMIN D3) 2,000 UNIT TABLET PO SCH (09:05)
[2022-07-30] MEDS: CYANOCOBALAMIN (VITAMIN B-12) 1,000 MCG TABLET PO SCH (09:24)
[2022-07-30] MEDS: PANTOPRAZOLE SODIUM 40 MG TAB PO SCH (09:24)
[2022-07-30] MEDS: FOLIC ACID 1 MG TABLET PO SCH (09:24)
[2022-07-30] MEDS: CARVEDILOL 12.5 MG TABLET (COREG) PO SCH (09:35)
[2022-07-30] MEDS: lisinopriL 5 MG TABLET PO SCH (09:41)
[2022-07-30] MEDS: POLYETHYLENE GLYCOL 3350, 17 GM/ POWD.PACK PO SCH (09:44)
[2022-07-30] MEDS: POTASSIUM CHLORIDE 10 MEQ TAB.PRT.SR PO SCH (09:44)
[2022-07-30] MEDS: MULTIVITAMINS TAB 1 TABLET PO SCH (10:16)
[2022-07-30] MEDS: metOLazone 5 MG TABLET PO SCH (10:16)
[2022-07-30] MEDS: methIMAzole 5 MG TABLET PO SCH (10:18)
[2022-07-30] MEDS: HYDROXYCHLOROQUINE SULFATE 200 MG TABLET PO SCH (10:19)
[2022-07-30] MEDS: Effexor XR 37.5 MG PO SCH (10:21)
[2022-07-30] MEDS: FUROSEMIDE 40 MG TABLET PO SCH (10:21)
[2022-07-30] MEDS: BALSAM PERU/CASTOR OIL 56.7 GM OINT...G. TP SCH (10:32)
[2022-07-30] MEDS: CEFAZOLIN 1 GM IVPB PREMIX 50 ML IV SCH (11:07)
[2022-07-30 13:19] VITALS: BP_SYST 121
[2022-07-30 16:32] VITALS: BP_SYST 130
[2022-07-30 17:43] VITALS: BP_SYST 130
== END 2022-07-30 22:00 | DRG 871 ==
LOC: SED 21:39 → SIC 07-16 01:37 → STU 07-18 09:41 → SMU 07-22 16:54
PROVIDERS: ADMIT Internal Medicine; ATTEND Internal Medicine
PROC: 02HV33Z Insertion of Infusion Device into Superior Vena Cava, Percutaneous Approach (ICD-10-PCS; principal; 2022-07-26)
DX: A41.9 Sepsis, unspecified organism (principal); I21.A1 Myocardial infarction type 2; I50.23 Acute on chronic systolic (congestive) heart failure; J96.01 Acute respiratory failure with hypoxia; J15.6 Pneumonia due to other Gram-negative bacteria; I33.0 Acute and subacute infective endocarditis; N17.9 Acute kidney failure, unspecified; E87.1 Hypo-osmolality and hyponatremia; E87.20 Acidosis, unspecified; I13.0 Hypertensive heart and chronic kidney disease with heart failure and stage 1 through stage 4 chronic kidney disease, or unspecified chronic kidney disease; D84.9 Immunodeficiency, unspecified; M86.8X7 Other osteomyelitis, ankle and foot; I48.91 Unspecified atrial fibrillation; L97.519 Non-pressure chronic ulcer of other part of right foot with unspecified severity; B95.61 Methicillin susceptible Staphylococcus aureus infection as the cause of diseases classified elsewhere; B96.4 Proteus (mirabilis) (morganii) as the cause of diseases classified elsewhere; Z20.822 Contact with and (suspected) exposure to COVID-19; E11.22 Type 2 diabetes mellitus with diabetic chronic kidney disease; D63.1 Anemia in chronic kidney disease; E11.65 Type 2 diabetes mellitus with hyperglycemia; E78.5 Hyperlipidemia, unspecified; I25.10 Atherosclerotic heart disease of native coronary artery without angina pectoris; N18.32 Chronic kidney disease, stage 3b; E11.621 Type 2 diabetes mellitus with foot ulcer; M32.9 Systemic lupus erythematosus, unspecified; E88.09 Other disorders of plasma-protein metabolism, not elsewhere classified; M19.90 Unspecified osteoarthritis, unspecified site; M79.7 Fibromyalgia; Z95.0 Presence of cardiac pacemaker
CPT/HCPCS: 36415; 71045; 80048; 80053; 81000; 82570; 82962; 83605; 83735; 83880; 84100; 84302; 84484; 85007; 85025; 85027; 85379; 85610-TC; 85651-TC; 85730-TC; 86140; 87040; 87070-TC; 87081; 87186-TC; 93005; 93017; 93306; 93970; 96365; 96375; 97110-GP; 97112-GP; 97163-GP; 97530-GP; 99291; A9500; G0378; J0690; J0692; J0878; J1644; J1650; J1815; J2060; J2405; J2543; J2785; J3370; J3490; J7060; Q0163; U0003

== ENCOUNTER 2022-10-23 22:47 | Inpatient (IN) | payer OTHER ==
[~2022-10-23] VITALS: Ht 165.1 cm; Wt 72.1 kg
[~2022-10-23 22:47] MED LIST changes: +ACET-2634 PO; +ASCO500T20 PO; +CALC500T63 PO; +CEFA1SYR4 IV; -CEPH250C PO; +CYAN250014 PO; +DOCU-144 PO; +FER300L PO; +FOLI-43 PO; +GABA-776 PO; +GLIP10TA11 PO; -GLIP10TA21 PO; -MILN50TA PO; +MULT-1089 PO; +POLY17PO4 PO; +SENN8.6T19 PO; -SITA50TA3 PO; +TAPAZOLE PO; -TRAM-350 PO; +VITD2000 PO; +ZINC100T2 PO
[2022-10-23 22:50] VITALS: BP_SYST 100
--- NOTE | 2022-10-23 22:50 | NUR ---
Patient triaged and placed in ER bed 4 for evaluation. Vital signs updated, denied any acute distress at this time. Instructed to notify ED staff for any changes in condition or worsening of symptoms. Patient verbalized understanding.
--- NOTE | 2022-10-23 23:25 | NUR ---
Dr. Jiang at bedside examining the patient.
[2022-10-23] MEDS ORDERED: ACETAMINOPHEN 325 MG TABLET PO ONE (23:30)
[2022-10-23] MEDS ORDERED: NACL 0.9% 1,000 ML IV ONE (23:30)
[2022-10-24] VITALS (7 sets, daily range): BP systolic 100–126
--- NOTE | 2022-10-24 00:06 | NUR ---
Portable x-ray done at bedside.
[2022-10-24 00:13] LABS: ALANINE AMINOTRANSFERASE 16 U/L (12-78); ALBUMIN 2.4 g/dL (3.4-4.8); ANION GAP 7 (5-15); ASPARTATE AMINOTRANSFERASE 56 U/L (10-37); BASOPHILS # (AUTO) 0.1 K/uL (0.0-0.2); BASOPHILS % (AUTO) 0.5 % (0.0-2.0); CALCIUM 9.1 mg/dL (8.4-11.0); CHLORIDE 93 mmol/L (98-107); CREATININE 2.06 mg/dL (0.55-1.30); GLUCOSE 359 mg/dL (70-99); HEMATOCRIT 24.4 % (36-48); HEMOGLOBIN 8.1 g/dL (12.0-16.0); LYMPHOCYTES # (AUTO) 0.2 K/uL (1.0-5.5); LYMPHOCYTES % (AUTO) 1.5 % (20.5-51.5); MEAN CORPUSCULAR HEMOGLOBIN 29 pg (27-31); MEAN CORPUSCULAR HGB CONC 33 % (32-36); MEAN CORPUSCULAR VOLUME 87 fL (79.0-98.0); MONOCYTES # (AUTO) 0.5 K/uL (0.0-1.0); NEUTROPHILS # (AUTO) 12.8 K/uL (1.8-7.7); PLATELET COUNT (AUTO) 235 K/uL (130-430); RED CELL DISTRIBUTION WIDTH 14.7 % (9.0-15.0); TOTAL BILIRUBIN 0.3 mg/dL (0.0-1.0); UREA NITROGEN, BLOOD 29 mg/dL (8-21); WHITE BLOOD COUNT (AUTO) 13.7 K/uL (4.8-10.8)
[2022-10-24] MEDS ORDERED: CIPR500T5 PO (00:19)
[2022-10-24] MEDS ORDERED: NYST15PO4 TP (00:19)
[2022-10-24] MEDS ORDERED: ATOR40TA68 PO (00:19)
[2022-10-24] MEDS ORDERED: FURO40TA5 PO (00:19)
[2022-10-24] MEDS ORDERED: VENL75CA56 PO (00:19)
[2022-10-24] MEDS ORDERED: BUPR-48 PO (00:19)
[2022-10-24] MEDS ORDERED: PANT40TA45 PO (00:19)
[2022-10-24] MEDS ORDERED: METH-373 PO (00:19)
[2022-10-24] MEDS ORDERED: METO5TAB7 PO (00:19)
[2022-10-24] MEDS ORDERED: VENL150C53 PO (00:19)
[2022-10-24] MEDS ORDERED: INSU100I68 SUBCUT (00:19)
[2022-10-24] MEDS ORDERED: PIPERACILLIN/TAZO 3.375 GM in NS 50 ML IV ONE (00:30)
[2022-10-24] MEDS ORDERED: COR12.5 PO (00:32)
[2022-10-24] MEDS ORDERED: PIPERACILLIN/TAZOBACTAM 3.375 GM/VIAL (ZOSYN) IV ONE (00:33)
[2022-10-24] MEDS ORDERED: FERR-69 PO (00:42)
[2022-10-24 00:43] LABS: C-REACTIVE PROTEIN QUANT < 0.2 mg/dL (0-0.5)
[2022-10-24] MEDS ORDERED: ZINC220T3 PO (00:58)
[2022-10-24] MEDS ORDERED: PRO40 PO (00:59)
[2022-10-24] MEDS ORDERED: CHOL200075 PO (01:07)
--- NOTE | 2022-10-24 01:14 | NUR ---
Admit bed requested Patient will be admitted to care of Dr. ZAYAS. Admitted to MEDSURG unit. Diagnosis CELLULITIS Inpatient (Yes or No) YES Observation (Yes or No) NO Orientation concerns or request close to nursing station (Yes or No) NO Covid Status N/A On vent or bipap NO Isolation requirements NONE Needs a sitter NO From Home (Yes or if No enter name of facility) TRENT HALFWAY Requires Dialysis (Yes or No) NO Med Rec Completed (Yes of No) YES
[2022-10-24] MEDS ORDERED: INSULIN ASPART 100 UNITS/ML, 10 ML VIAL (NovoLOG) SUBCUT PRN (01:15)
--- NOTE | 2022-10-24 02:35 | NUR ---
Patient will be admitted to care of DR. ZAYAS. Admitted to MEDSURG unit. Will go to room 128B. Belongings list completed. Complete and up to date summary report printed. SBAR report to be given at bedside with opportunity for questions.
[2022-10-24 03:08] LABS: BILIRUBIN,URINE NEGATIVE (NEGATIVE); BLOOD, URINE 2+ (NEGATIVE); CLARITY/URINE CLEAR (CLEAR); COLOR,URINE YELLOW (YELLOW); GLUCOSE,URINE 3+ (NEGATIVE); KETONES,URINE NEGATIVE (NEGATIVE); LEUKOCYTE ESTERASE ,URINE NEGATIVE (NEGATIVE); NITRITE, URINE NEGATIVE (NEGATIVE); PROTEIN URINE 3+ (NEGATIVE); UROBILINOGEN,URINE 0.2 (0.2-1.0)
[2022-10-24] MEDS: PIPERACILLIN/TAZO 3.375 GM in NS 50 ML IV SCH ×3 (06:52→20:31)
[2022-10-24 07:45] LABS: RBC,URINE 0-3 /HPF (0-3); WBC,URINE 0-3 /HPF (0-3)
[2022-10-24 07:46] LABS: BACTERIA,URINE FEW /HPF (None Seen)
--- NOTE | 2022-10-24 07:50 | NUR ---
Opening Nurse Notes: Patient laying in bed. A/O x 2, Cuban speaking. Patient breathing even on room air. No pain, no distress, no SOB. Patient is on a CCHO diet. Bed is locked in lowest position. Call light within reach, all needs met, will continue with plan of care.
[2022-10-24 07:58] LABS: ERYTHROCYTE SEDIMENTATION RATE 42 MM/HR (0-20)
[2022-10-24 08:05] LABS: CKMB RELATIVE INDEX 0.2 (0.0-2.9); CREATINE KINASE MB 5.3 ng/mL (0-3.6)
--- NOTE | 2022-10-24 12:00 | NUR ---
Afternoon Nurse Notes: Patient in asleep bed stable. Patient on room air. No pain, no distress, no SOB. Bed is locked in lowest position. Call light within reach, all needs met, will continue with plan of care.
[2022-10-24] MEDS ORDERED: SEVOFLURANE 15 MIN GAS INH ONE (12:25)
[2022-10-24] MEDS ORDERED: PROPOFOL 200MG/ 20ML VIAL (DIPRIVAN) IV ONE (12:25)
[2022-10-24] MEDS ORDERED: NS 1000 ML IV.SOLN IV ONE (12:25)
[2022-10-24] MEDS ORDERED: NS IRRIG SOLN 1000 ML IR ONE (12:25)
--- NOTE | 2022-10-24 14:17 | NUR ---
CONSULTATION PAGED/CALLED Reason for Consultation: [] WILLIAMCOT Person Who was Notified: [] NICK (FROM OR) Consulting Physician: [] DR HANDY Sql Report Developer Specialty: [] GEN SURGEON Ordering Physician: [] DR ZAYAS Addendum: 10/24/22 at 1419 by Carol Villalta [place]/ NICK, TRADITIONAL CHINESE HERBALIST WILL NOTIFY DR HANDY WHO IS IN SURGERY RIGHT NOW.
--- NOTE | 2022-10-24 14:24 | NUR ---
DM Nurse Notes: Patient had glucose at 56. Patient was given and OJ to bring sugar up.
[2022-10-24] MEDS ORDERED: methIMAzole 5 MG TABLET PO ONE (14:30)
[2022-10-24] MEDS ORDERED: SENNOSIDES 8.6 MG TABLET PO SCH (14:30)
[2022-10-24] MEDS ORDERED: CLOPIDOGREL BISULFATE 75 MG TABLET PO ONE (14:30)
[2022-10-24] MEDS ORDERED: ATORVASTATIN 20 MG TABLET PO ONE (14:30)
[2022-10-24] MEDS ORDERED: buPROPion HCL 150 MG XL TAB PO ONE (14:30)
[2022-10-24] MEDS ORDERED: ASPIRIN 81 MG TABLET(ECOTRIN) PO ONE (14:30)
--- NOTE | 2022-10-24 16:00 | NUR ---
Late Noon Nurse Notes: Patient laying in bed asleep. No pain, no distress, no SOB. Bed is locked in lowest position. Call light within reach, all needs met, will continue with plan of care.
--- NOTE | 2022-10-24 16:33 | NUR ---
GEN SURGEON CONSULT DR Libia HANDY WILL SEE PT TOMORROW, 10/25/22.
--- NOTE | 2022-10-24 16:35 | NUR ---
ID CONSULT, DR ISABEL QUEEN IS AWARE, RE: [place].
--- NOTE | 2022-10-24 17:43 | NUR ---
MRI Nurse Notes: MRI unavailable until Thursday. MRI will be scheduled for then per X-ray staff person.
--- NOTE | 2022-10-24 17:55 | NUR ---
LOW BLOOD SUGAR Pt's blood glucose 46 mg/dl via fingerstick. pt AAOx4, asymptomatic. Pt given chocolate ice cream and fruit declined any juice. Will recheck glucose and continue to monitor pt. Pt's nurse Russell alcantar.
[2022-10-24] MEDS: ACETAMINOPHEN 500 MG TABLET PO PRN (18:00)
[2022-10-24] MEDS: NACL 0.9% 1,000 ML IV SCH (18:07)
--- NOTE | 2022-10-24 18:50 | NUR ---
BLOOD GLUCOSE RECHECK Fingerstick now 63 mg/dl, pt ate 3 chocolate ice creams, strawberries, some chicken and rice. Pt AAOx4, remains asymptomatic-pt stated she runs in the 60 and 70s at home. Pt's nurse Javier alcantar.
--- NOTE | 2022-10-24 19:00 | NUR ---
Closing note: Patient stable, A/O x4 Gambian speaking. Patient breathing even and unlabored on room air. No pain, no distress, no SOB. Bed is locked in lowest position. Call light within reach, all needs met, endorsed to Bibi DAWSONoptions advisorair hammer operator. Also endorsed to Bibi DAWSON that a culture for the left foot needed to be entered and redone, per lab. She said she would take care of it.
[2022-10-24] MEDS: DOCUSATE SODIUM 100 MG CAPSULE PO SCH (20:21)
[2022-10-24] MEDS: GABAPENTIN 300 MG CAPSULE PO SCH (20:22)
[2022-10-24] MEDS: CALCIUM CARBONATE 500 MG/ TAB.CHEW PO SCH (20:23)
[2022-10-24] MEDS: CARVEDILOL 12.5 MG TABLET (COREG) PO SCH (20:23)
[2022-10-24] MEDS: POTASSIUM CHLORIDE 20 MEQ TAB.PRT.SR PO SCH (20:23)
[2022-10-24] MEDS ORDERED: HYDROXYCHLOROQUINE SULFATE 200 MG TABLET PO SCH (21:00)
[2022-10-24] MEDS ORDERED: FUROSEMIDE 40 MG TABLET PO SCH (21:00)
[2022-10-25] VITALS: BP_SYST 117
[2022-10-25 05:06] LABS: BASOPHILS % (AUTO) 0.3 % (0.0-2.0); EOSINOPHILS # (AUTO) 0.1 K/uL (0.0-0.4); EOSINOPHILS % (AUTO) 1.3 % (0.0-4.0); HEMATOCRIT 23.6 % (36-48); HEMOGLOBIN 8.3 g/dL (12.0-16.0); LYMPHOCYTES # (AUTO) 0.4 K/uL (1.0-5.5); LYMPHOCYTES % (AUTO) 5.6 % (20.5-51.5); MEAN CORPUSCULAR HEMOGLOBIN 30 pg (27-31); MEAN CORPUSCULAR HGB CONC 35 % (32-36); MEAN CORPUSCULAR VOLUME 86 fL (79.0-98.0); MONOCYTES # (AUTO) 0.4 K/uL (0.0-1.0); MONOCYTES % (AUTO) 5.6 % (1.7-9.3); NEUTROPHILS # (AUTO) 6.1 K/uL (1.8-7.7); NEUTROPHILS % (AUTO) 87.2 % (40.0-70.0); PLATELET COUNT (AUTO) 164 K/uL (130-430); RED BLOOD CELL COUNT(AUTO) 2.75 MIL/uL (4.2-6.2); RED CELL DISTRIBUTION WIDTH 15.2 % (9.0-15.0)
[2022-10-25] MEDS: PIPERACILLIN/TAZO 3.375 GM in NS 50 ML IV SCH ×3 (05:27→21:56)
[2022-10-25] MEDS ORDERED: D5W 1,000 ML IV PRN (05:30)
[2022-10-25] MEDS ORDERED: GLUCOSE (DEXTROSE) ORAL GEL -Adults PO PRN (05:30)
[2022-10-25 05:35] LABS: ANION GAP 9 (5-15); CALCIUM 8.3 mg/dL (8.4-11.0); CHLORIDE 104 mmol/L (98-107); CREATININE 1.92 mg/dL (0.55-1.30); GLUCOSE 55 mg/dL (70-99); UREA NITROGEN, BLOOD 34 mg/dL (8-21)
--- NOTE | 2022-10-25 06:55 | NUR ---
AM Blood sugar 48. OJ and sandwhich given. Recheck 68. More OJ and sandwhich given and hypoglycemia protocal initiated. Blood sugar then 81. Patient asymptomatic. No compalints of pain. Vitals stable.
[2022-10-25 08:45] VITALS: BP_SYST 123
[2022-10-25] MEDS ORDERED: FOLIC ACID 1 MG TABLET PO SCH (09:00)
[2022-10-25] MEDS ORDERED: metOLazone 5 MG TABLET PO SCH (09:00)
[2022-10-25] MEDS ORDERED: methIMAzole 5 MG TABLET PO SCH (09:00)
[2022-10-25] MEDS ORDERED: ATORVASTATIN 20 MG TABLET PO SCH (09:00)
[2022-10-25] MEDS: GABAPENTIN 300 MG CAPSULE PO SCH ×2 (09:00→21:58)
[2022-10-25] MEDS ORDERED: PANTOPRAZOLE SODIUM 40 MG TAB PO SCH (09:00)
[2022-10-25] MEDS ORDERED: buPROPion HCL 150 MG XL TAB PO SCH (09:00)
[2022-10-25] MEDS: ASCORBIC ACID 500 MG TABLET PO SCH (09:26)
[2022-10-25] MEDS: DOCUSATE SODIUM 100 MG CAPSULE PO SCH ×2 (09:26→21:00)
[2022-10-25] MEDS: CLOPIDOGREL BISULFATE 75 MG TABLET PO SCH (09:26)
[2022-10-25] MEDS: POLYETHYLENE GLYCOL 3350, 17 GM/ POWD.PACK PO SCH (09:26)
[2022-10-25] MEDS: POTASSIUM CHLORIDE 20 MEQ TAB.PRT.SR PO SCH ×2 (09:27→22:01)
[2022-10-25] MEDS: CARVEDILOL 12.5 MG TABLET (COREG) PO SCH ×2 (09:28→21:58)
[2022-10-25] MEDS: MULTIVITAMINS TAB 1 TABLET PO SCH (09:29)
[2022-10-25] MEDS: lisinopriL 5 MG TABLET PO SCH (09:30)
[2022-10-25] MEDS: ASPIRIN 81 MG TABLET(ECOTRIN) PO SCH (09:30)
[2022-10-25] MEDS: NEPHROVITE, (FOLIC ACID/VITAMIN B COMP W-C 1 TAB) PO SCH (09:31)
[2022-10-25] MEDS: Effexor 37.5 MG TAB PO SCH (09:31)
[2022-10-25] MEDS: CALCIUM CARBONATE 500 MG/ TAB.CHEW PO SCH ×2 (09:31→21:00)
[2022-10-25 11:22] VITALS: BP_SYST 123
[2022-10-25] MEDS: NACL 0.9% 1,000 ML IV SCH ×3 (11:38→22:06)
[2022-10-25] MEDS: ACETAMINOPHEN 500 MG TABLET PO PRN (14:43)
[2022-10-25 15:20] VITALS: BP_SYST 118
--- NOTE | 2022-10-25 16:22 | NUR ---
CONSULTATION PAGED/CALLED Reason for Consultation: Foot Ulcers Person Who was Notified: Dr. Vicente Consulting Physician: Dr. Vicente Report Programmer Specialty: General Surgery Ordering Physician: Dr. Brambila Spoke with doctor and he said he will be coming in tomorrow or the next day.
--- NOTE | 2022-10-25 17:56 | NUR ---
Patient refused her Insulin coverage. Patient had a blood sugar of 48 the went up to a normal level. Instructed patient to ask for a snack tonight. Will endorse to security shift manager.
[2022-10-25 20:00] VITALS: BP_SYST 111
[2022-10-25] MEDS: ATORVASTATIN 20 MG TABLET PO SCH (21:59)
[2022-10-25] MEDS: HYDROXYCHLOROQUINE SULFATE 200 MG TABLET PO SCH (22:00)
[2022-10-25] MEDS: FOLIC ACID 1 MG TABLET PO SCH (22:11)
[2022-10-25] MEDS: buPROPion HCL 150 MG XL TAB PO SCH (22:11)
[2022-10-25] MEDS: methIMAzole 5 MG TABLET PO SCH (22:13)
[2022-10-25] MEDS: guaiFENesin ER 600 MG TAB PO SCH (23:15)
[2022-10-26] VITALS: BP_SYST 132
[2022-10-26] MEDS: NACL 0.9% 1,000 ML IV SCH ×3 (04:28→19:09)
[2022-10-26 05:30] LABS: BASOPHILS % (AUTO) 0.2 % (0.0-2.0); EOSINOPHILS # (AUTO) 0.2 K/uL (0.0-0.4); EOSINOPHILS % (AUTO) 2.5 % (0.0-4.0); HEMATOCRIT 23.3 % (36-48); HEMOGLOBIN 7.8 g/dL (12.0-16.0); LYMPHOCYTES # (AUTO) 0.5 K/uL (1.0-5.5); LYMPHOCYTES % (AUTO) 6.2 % (20.5-51.5); MEAN CORPUSCULAR HEMOGLOBIN 29 pg (27-31); MEAN CORPUSCULAR HGB CONC 34 % (32-36); MEAN CORPUSCULAR VOLUME 86 fL (79.0-98.0); MONOCYTES # (AUTO) 0.6 K/uL (0.0-1.0); MONOCYTES % (AUTO) 6.9 % (1.7-9.3); NEUTROPHILS # (AUTO) 6.8 K/uL (1.8-7.7); NEUTROPHILS % (AUTO) 84.2 % (40.0-70.0); PLATELET COUNT (AUTO) 157 K/uL (130-430); RED CELL DISTRIBUTION WIDTH 14.9 % (9.0-15.0); WHITE BLOOD COUNT (AUTO) 8.1 K/uL (4.8-10.8)
[2022-10-26 05:48] LABS: ALANINE AMINOTRANSFERASE 28 U/L (12-78); ALBUMIN 1.9 g/dL (3.4-4.8); ANION GAP 7 (5-15); ASPARTATE AMINOTRANSFERASE 36 U/L (10-37); CALCIUM 8.4 mg/dL (8.4-11.0); CHLORIDE 103 mmol/L (98-107); CREATININE 1.87 mg/dL (0.55-1.30); GLUCOSE 198 mg/dL (70-99); PHOSPHORUS 2.8 mg/dL (2.7-4.5); TOTAL BILIRUBIN 0.3 mg/dL (0.0-1.0); UREA NITROGEN, BLOOD 32 mg/dL (8-21)
[2022-10-26] MEDS: PIPERACILLIN/TAZO 3.375 GM in NS 50 ML IV SCH ×3 (06:45→22:07)
[2022-10-26] MEDS: PANTOPRAZOLE SODIUM 40 MG TAB PO SCH (06:45)
[2022-10-26 08:00] VITALS: BP_SYST 126
[2022-10-26] MEDS: guaiFENesin ER 600 MG TAB PO SCH ×2 (09:00→21:29)
[2022-10-26] MEDS: CALCIUM CARBONATE 500 MG/ TAB.CHEW PO SCH ×2 (09:00→21:00)
[2022-10-26] MEDS: GABAPENTIN 300 MG CAPSULE PO SCH ×2 (09:00→21:26)
[2022-10-26] MEDS: POLYETHYLENE GLYCOL 3350, 17 GM/ POWD.PACK PO SCH (09:00)
[2022-10-26] MEDS: MULTIVITAMINS TAB 1 TABLET PO SCH (09:24)
[2022-10-26] MEDS: DOCUSATE SODIUM 100 MG CAPSULE PO SCH ×2 (09:24→21:26)
[2022-10-26] MEDS: ASPIRIN 81 MG TABLET(ECOTRIN) PO SCH (09:24)
[2022-10-26] MEDS: POTASSIUM CHLORIDE 20 MEQ TAB.PRT.SR PO SCH ×2 (09:24→21:00)
[2022-10-26] MEDS: NEPHROVITE, (FOLIC ACID/VITAMIN B COMP W-C 1 TAB) PO SCH (09:26)
[2022-10-26] MEDS: CARVEDILOL 12.5 MG TABLET (COREG) PO SCH ×2 (09:26→21:29)
[2022-10-26] MEDS: CLOPIDOGREL BISULFATE 75 MG TABLET PO SCH (09:27)
[2022-10-26] MEDS: lisinopriL 5 MG TABLET PO SCH (09:28)
[2022-10-26] MEDS: Effexor 37.5 MG TAB PO SCH (09:34)
[2022-10-26] MEDS: ASCORBIC ACID 500 MG TABLET PO SCH (09:37)
[2022-10-26] MEDS: HYDROXYCHLOROQUINE SULFATE 200 MG TABLET PO SCH ×2 (10:57→22:00)
[2022-10-26 11:20] VITALS: BP_SYST 118
[2022-10-26] MEDS: INSULIN LISPRO SLIDING SCALE 100 UNITS/ML, 3 ML VIAL (humaLOG) SUBCUT PRN (13:36)
[2022-10-26 15:43] VITALS: BP_SYST 131
[2022-10-26 20:00] VITALS: BP_SYST 135
--- NOTE | 2022-10-26 20:24 | NUR ---
Patient deteriorating slightly from last two days. Left leg from knee to ankle now observed to be noticeably red. Patient is complaining of, "not feeling good," and "having pain all over." "I'm hurting so bad." No fever. Heart rate 109 and BP 135/69. Observed patient attempting to get out of bed and stand up although the previous two days she was well aware and verbalized that "she could not walk at this time." She informed me that she is having a real "attack" and needs something stronger than "just tylenol," because it is "not helping." Phone call out to Dr. Brambila , covering Dr. Degroot. Awaiting return call. Will continue to monitor patient closely.
[2022-10-26] MEDS ORDERED: NALOXONE HCL 0.4 MG/ML AMP (NARCAN) IVP PRN (21:15)
[2022-10-26] MEDS: MORPHINE 2 MG/ML INJ. SYRINGE IVP PRN (21:23)
[2022-10-26] MEDS: ACETAMINOPHEN 500 MG TABLET PO PRN (21:23)
[2022-10-26] MEDS: methIMAzole 5 MG TABLET PO SCH (21:25)
[2022-10-26] MEDS: buPROPion HCL 150 MG XL TAB PO SCH (21:26)
[2022-10-26] MEDS: guaiFENesin 200 MG/10 ML UDC PO PRN (21:26)
[2022-10-26] MEDS: ATORVASTATIN 20 MG TABLET PO SCH (21:27)
[2022-10-26] MEDS: FOLIC ACID 1 MG TABLET PO SCH (21:27)
[2022-10-26] MEDS: DEXTROSE 50% JECT 50 ML DISP.SYRIN IVP PRN (22:08)
[2022-10-27 01:55] VITALS: BP_SYST 129
[2022-10-27 04:00] VITALS: BP_SYST 129
[2022-10-27 04:29] LABS: BASOPHILS % (AUTO) 0.3 % (0.0-2.0); EOSINOPHILS # (AUTO) 0.2 K/uL (0.0-0.4); EOSINOPHILS % (AUTO) 1.9 % (0.0-4.0); HEMATOCRIT 23.1 % (36-48); HEMOGLOBIN 7.7 g/dL (12.0-16.0); LYMPHOCYTES # (AUTO) 0.8 K/uL (1.0-5.5); LYMPHOCYTES % (AUTO) 7.8 % (20.5-51.5); MEAN CORPUSCULAR HEMOGLOBIN 29 pg (27-31); MEAN CORPUSCULAR HGB CONC 33 % (32-36); MEAN CORPUSCULAR VOLUME 86 fL (79.0-98.0); MONOCYTES # (AUTO) 0.9 K/uL (0.0-1.0); NEUTROPHILS # (AUTO) 8.5 K/uL (1.8-7.7); PLATELET COUNT (AUTO) 169 K/uL (130-430); RED BLOOD CELL COUNT(AUTO) 2.69 MIL/uL (4.2-6.2); RED CELL DISTRIBUTION WIDTH 15.3 % (9.0-15.0); WHITE BLOOD COUNT (AUTO) 10.5 K/uL (4.8-10.8)
[2022-10-27] MEDS: NACL 0.9% 1,000 ML IV SCH ×4 (04:51→21:05)
[2022-10-27 04:56] LABS: ALANINE AMINOTRANSFERASE 26 U/L (12-78); ALBUMIN 1.9 g/dL (3.4-4.8); ANION GAP 8 (5-15); ASPARTATE AMINOTRANSFERASE 25 U/L (10-37); C-REACTIVE PROTEIN QUANT 22.7 mg/dL (0-0.5); CALCIUM 8.6 mg/dL (8.4-11.0); CHLORIDE 104 mmol/L (98-107); GLUCOSE 100 mg/dL (70-99); TOTAL BILIRUBIN 0.4 mg/dL (0.0-1.0); UREA NITROGEN, BLOOD 30 mg/dL (8-21)
[2022-10-27] MEDS: PIPERACILLIN/TAZO 3.375 GM in NS 50 ML IV SCH ×3 (05:00→22:00)
[2022-10-27] MEDS: PANTOPRAZOLE SODIUM 40 MG TAB PO SCH (06:36)
[2022-10-27 07:00] LABS: ERYTHROCYTE SEDIMENTATION RATE 42 MM/HR (0-20)
[2022-10-27 08:00] VITALS: BP_SYST 140
--- NOTE | 2022-10-27 08:00 | NUR ---
Opening Notes Patient is AOx4. No ss of distress noted. Breathing is even and nonlabored, on room air. Vital signs obtained, as documented. Patient denies SOB. Denies severe pain. IV patent. No ss of infiltration noted. IVF running. Patient is eating breakfast. Bed is locked, alarm on, and at lowest position. Call light within reach.
[2022-10-27] MEDS: CALCIUM CARBONATE 500 MG/ TAB.CHEW PO SCH ×2 (09:00→21:00)
[2022-10-27] MEDS: POLYETHYLENE GLYCOL 3350, 17 GM/ POWD.PACK PO SCH (09:00)
[2022-10-27] MEDS: ASCORBIC ACID 500 MG TABLET PO SCH (09:16)
[2022-10-27] MEDS: GABAPENTIN 300 MG CAPSULE PO SCH ×2 (09:16→22:07)
[2022-10-27] MEDS: Effexor 37.5 MG TAB PO SCH (09:17)
[2022-10-27] MEDS: DOCUSATE SODIUM 100 MG CAPSULE PO SCH ×2 (09:17→21:00)
[2022-10-27] MEDS: NEPHROVITE, (FOLIC ACID/VITAMIN B COMP W-C 1 TAB) PO SCH (09:17)
[2022-10-27] MEDS: POTASSIUM CHLORIDE 20 MEQ TAB.PRT.SR PO SCH ×2 (09:17→21:00)
[2022-10-27] MEDS: CLOPIDOGREL BISULFATE 75 MG TABLET PO SCH (09:17)
[2022-10-27] MEDS: ASPIRIN 81 MG TABLET(ECOTRIN) PO SCH (09:17)
[2022-10-27] MEDS: lisinopriL 5 MG TABLET PO SCH (09:17)
[2022-10-27] MEDS: MULTIVITAMINS TAB 1 TABLET PO SCH (09:18)
[2022-10-27] MEDS: ACETAMINOPHEN 500 MG TABLET PO PRN ×2 (09:18→22:08)
[2022-10-27] MEDS: guaiFENesin ER 600 MG TAB PO SCH ×2 (09:18→22:06)
[2022-10-27] MEDS: CARVEDILOL 12.5 MG TABLET (COREG) PO SCH ×2 (09:19→22:07)
[2022-10-27] MEDS: HYDROXYCHLOROQUINE SULFATE 200 MG TABLET PO SCH ×2 (09:42→22:06)
[2022-10-27] MEDS: INSULIN LISPRO SLIDING SCALE 100 UNITS/ML, 3 ML VIAL (humaLOG) SUBCUT PRN ×2 (11:46→17:23)
[2022-10-27 11:50] VITALS: BP_SYST 129
--- NOTE | 2022-10-27 12:00 | NUR ---
Notes Patient is eating lunch. denies severe pain. No SOB noted. All safety precautions in place and call light within reach.
[2022-10-27] MEDS: ALBUMIN HUMAN 25% 100 ML IV SCH ×2 (12:17→18:42)
[2022-10-27] MEDS: MORPHINE 2 MG/ML INJ. SYRINGE IVP PRN (14:39)
--- NOTE | 2022-10-27 15:00 | NUR ---
WOUND EVALUATION: Per 10/27/2022 at 1500 secondary to patient care. Wound Consult received from Dr. Degroot. Thank you, Dr. Degroot, for the consult. Patient received in a [place] Bed with an Isoflex IBETH mattress, awake, alert, and oriented. Patient is able to turn independently. Herber Score is an 18. Past Medical History: Diabetes Mellitus, Arthritis, Fibromyalgia, Lupus, Constipation, Hyperlipidemia, Hypertension. Recent Labs: WBC 10.5, RBC 2.69, hemoglobin 7.7, hematocrit 23.1, ESR 42, BUN 30, creatinine 1.80, glucose 100, alkaline phosphatase 147.1, C-reactive protein 22.7, albumin 1.9. Microbiology: Blood culture results x2 in progress. Urine culture results negative. MRSA screen results negative. Foot wound culture results positive for Beta-Hemolytic Streptococcus group B, culture not finalized. Second wound culture results in progress. Intrinsic factors that delay wound healing: Diabetes Mellitus, Hyperglycemia. Extrinsic factors that delay wound healing: Decreased mobility. Left lower extremity has calor, moderate nonpitting edema and erythema. Right lower extremity has moderate nonpitting edema. Wound Assessment: 1. Right Plantar Foot, near and posterior to First and Second Metatarsal Heads: Diabetic/Neuropathic Ulcer, present on admission. Wound bed has 95% pink tissue, 5% yellow tissue. No odor, small yellow drainage on dressing. Periwound intact, callused. Wound measures 3.6 cm x 4.2 cm x 0.6 cm. Recommend: Cleanse wound with normal saline. Apply moisture barrier cream to periwound. Apply Venelex ointment to wound bed. Pack wound with 1/4 inch iodoform packing strip. Cover with silver foam dressing. Perform wound care daily, and as needed for dressing soiling or dislodgment. 2. Right Plantar Foot near Third and Fourth Metatarsal Heads: Diabetic/Neuropathic Ulcer, present on admission. Wound bed has 40% pink tissue, 60% black eschar. No odor, no drainage. Periwound intact. Dry, stable. Wound measures 1.0 cm x 2.2 cm. Recommend: Cleanse wound with normal saline. Apply moisture barrier cream to periwound. Apply Venelex ointment to wound bed. Cover with silver foam dressing. Perform wound care daily, and as needed for dressing soiling or dislodgment. 3. Right lateral foot near fifth metatarsal head: Diabetic/Neuropathic Ulcer, present on admission. Wound bed has 100% black eschar. No odor, no drainage. Periwound intact. Eschar appears to be starting to fall off. Recommend: [place] eschar site with Betadine. Allow Betadine to air dry. Cover site with foam dressing. Perform wound care daily. 4. Left Plantar Foot near Third Metatarsal Head: Diabetic/Neuropathic Ulcer, present on admission. Wound bed has 90% yellow slough, 10% pink tissue. No odor, no drainage. Periwound intact, callused. Wound measures 1.3 cm x 1.4 cm x 0.1 cm. Recommend: Cleanse wound with normal saline. Apply moisture barrier cream to periwound. Apply Venelex ointment to wound bed. Cover with silver foam dressing. Perform wound care daily, and as needed for dressing soiling or dislodgment. Also recommend: Encourage and assist patient as needed with repositioning side to side all every 2 hours with pillow support and off-load pressure areas with pillows for pressure re-distribution. Offload, elevate and float bilateral heels with pillows. Perform skin care and monitor skin integrity Q shift. Use moisture barrier cream on buttocks and other moisture susceptible areas QID and as needed for soiling. Initiate low air-loss therapy by adding an air pump to the mattress.
--- NOTE | 2022-10-27 15:00 | NUR ---
Wound care EUNICE Gallegos assessed wounds. Photos taken. Wound care provided, per El eclectic doctor Left foot plantar: cleaned with NS, pat dried with gauze. applied wound gel and packed wound with iodoform 1/4 cm. Covered wound with foam patch. wrapped with gauze bandage. right foot plantar - inferior to big toe cleaned with NS, pat dried with gauze. applied wound gel and packed wound with iodoform 1/4 cm. Covered wound with foam patch. wrapped with gauze bandage - inferior to toes 3&4 cleaned with NS, pat dried with gauze. applied wound gel and packed wound with iodoform 1/4 cm. Covered wound with foam patch. wrapped with gauze bandage. lateral side of right foot small wound. cleaned with NS, pat dried with gauze. applied wound gel and packed wound with iodoform 1/4 cm. Covered wound with foam patch. wrapped with gauze bandage cleaned with NS. pat dried. Applied Betadine. covered with foam dressing.
--- NOTE | 2022-10-27 15:32 | NUR ---
notes patient refused to work with occupational therapy.
[2022-10-27 15:33] VITALS: BP_SYST 131
--- NOTE | 2022-10-27 16:12 | NUR ---
attempted 2x this pm for pt to participate with OT eval, pt refused. Pt stated she doesnt feel well and has pain. Nursing gave pain meds more than 1 hr ago, pt still refused OT eval. Nursing notified.
--- NOTE | 2022-10-27 16:31 | NUR ---
hold discharge. patient not being discharged today. Per ID MD, patient needs two weeks of antibiotics. Needs midline. Dr. Degroot made aware.
--- NOTE | 2022-10-27 16:31 | NUR ---
Spoke with Dr Walter, needs iv antibiotics x 2 weeks. Midline ordered
--- NOTE | 2022-10-27 18:31 | NUR ---
NO IV NO IV access. Multiple nurses attempted to insert new IV. Unsuccessful.
--- NOTE | 2022-10-27 19:39 | NUR ---
Closing Notes Patient is eating dinner. No ss of distress noted. Breathing is even and nonlabored, on room air. Denies pain. NO SOB noted. NO IV access. Patient is stable. All needs met. Bed locked, alarm on, and at lowest position. Call light within reach.
--- NOTE | 2022-10-27 19:40 | NUR ---
PATIENT REFUSED PHYSICAL THERAPY EVAL TODAY BUT AGREED TO PARTICIPATE TOMORROW 10/28/22.
[2022-10-27 20:00] VITALS: BP_SYST 161
--- NOTE | 2022-10-27 22:00 | NUR ---
RD Recommendations * Continue on Consistent Carb Diet * Recommend Adalberto TID to help meet nutrient needs and assist with wound healing * Continue multivitamins for wound healing Monitor & evaluate PO intake, GI, skin, labs Please refer to RD Nutrition Assessment for details DION LAKHANI Addendum: 10/27/22 at [address] Amended: Links added.
[2022-10-27] MEDS: ATORVASTATIN 20 MG TABLET PO SCH (22:06)
[2022-10-27] MEDS: methIMAzole 5 MG TABLET PO SCH (22:09)
[2022-10-27] MEDS: guaiFENesin 200 MG/10 ML UDC PO PRN (22:13)
[2022-10-27] MEDS: buPROPion HCL 150 MG XL TAB PO SCH (22:14)
[2022-10-27] MEDS: FOLIC ACID 1 MG TABLET PO SCH (22:14)
[2022-10-28 00:50] VITALS: BP_SYST 111
[2022-10-28] MEDS: ALBUMIN HUMAN 25% 100 ML IV SCH (01:10)
--- NOTE | 2022-10-28 04:19 | NUR ---
00:45 am- Received pt in bed. Pt's sleeping in bed. Started Angio cath #22 on Rt forearm. resumed IVF NS @70 ml/hr. Started 24 hr urine collection for creatine clearance at 00:50 am. Pure ricardo intact.Checked BS- 217. Will monitor s/sx of hypoglycemia.
[2022-10-28 04:34] LABS: BASOPHILS % (AUTO) 0.4 % (0.0-2.0); EOSINOPHILS # (AUTO) 0.2 K/uL (0.0-0.4); EOSINOPHILS % (AUTO) 2.4 % (0.0-4.0); LYMPHOCYTES # (AUTO) 0.8 K/uL (1.0-5.5); LYMPHOCYTES % (AUTO) 9.6 % (20.5-51.5); MEAN CORPUSCULAR HEMOGLOBIN 29 pg (27-31); MEAN CORPUSCULAR HGB CONC 33 % (32-36); MEAN CORPUSCULAR VOLUME 86 fL (79.0-98.0); MONOCYTES % (AUTO) 11.9 % (1.7-9.3); NEUTROPHILS # (AUTO) 6.2 K/uL (1.8-7.7); NEUTROPHILS % (AUTO) 75.7 % (40.0-70.0); PLATELET COUNT (AUTO) 172 K/uL (130-430); RED BLOOD CELL COUNT(AUTO) 2.23 MIL/uL (4.2-6.2); RED CELL DISTRIBUTION WIDTH 15.3 % (9.0-15.0); WHITE BLOOD COUNT (AUTO) 8.2 K/uL (4.8-10.8)
[2022-10-28 05:01] LABS: ANION GAP 10 (5-15); CALCIUM 8.6 mg/dL (8.4-11.0); CHLORIDE 103 mmol/L (98-107); CREATININE 1.53 mg/dL (0.55-1.30); GLUCOSE 214 mg/dL (70-99); UREA NITROGEN, BLOOD 32 mg/dL (8-21)
[2022-10-28] MEDS: PIPERACILLIN/TAZO 3.375 GM in NS 50 ML IV SCH (05:19)
[2022-10-28 05:32] LABS: HEMATOCRIT 19.2 % (36-48); HEMOGLOBIN 6.3 g/dL (12.0-16.0)
[2022-10-28] MEDS: PANTOPRAZOLE SODIUM 40 MG TAB PO SCH (07:01)
[2022-10-28 08:00] VITALS: BP_SYST 138
--- NOTE | 2022-10-28 08:33 | NUR ---
opening notes: patient in bed watching tv. responded to name. no s/s of distress or pain reported. breathing is even and unlabored on RA 98%. set up breakfast tray. educated patient on use of call light. verbalized understanding. all needs met at this time, safety checks made and call light within reach.
[2022-10-28] MEDS: NACL 0.9% 1,000 ML IV SCH ×4 (09:40→23:45)
[2022-10-28] MEDS: Effexor 37.5 MG TAB PO SCH (09:41)
[2022-10-28] MEDS: ASCORBIC ACID 500 MG TABLET PO SCH (09:41)
[2022-10-28] MEDS: DOCUSATE SODIUM 100 MG CAPSULE PO SCH ×2 (09:41→21:36)
[2022-10-28] MEDS: POLYETHYLENE GLYCOL 3350, 17 GM/ POWD.PACK PO SCH (09:41)
[2022-10-28] MEDS: MULTIVITAMINS TAB 1 TABLET PO SCH (09:42)
[2022-10-28] MEDS: NEPHROVITE, (FOLIC ACID/VITAMIN B COMP W-C 1 TAB) PO SCH (09:42)
[2022-10-28] MEDS: CARVEDILOL 12.5 MG TABLET (COREG) PO SCH ×2 (09:42→21:36)
[2022-10-28] MEDS: CALCIUM CARBONATE 500 MG/ TAB.CHEW PO SCH ×2 (09:42→21:00)
[2022-10-28] MEDS: lisinopriL 5 MG TABLET PO SCH (09:43)
[2022-10-28] MEDS: POTASSIUM CHLORIDE 20 MEQ TAB.PRT.SR PO SCH ×2 (09:43→21:35)
[2022-10-28] MEDS: ASPIRIN 81 MG TABLET(ECOTRIN) PO SCH (09:43)
[2022-10-28] MEDS: CLOPIDOGREL BISULFATE 75 MG TABLET PO SCH (09:44)
[2022-10-28] MEDS: guaiFENesin ER 600 MG TAB PO SCH ×2 (09:44→21:00)
[2022-10-28] MEDS: GABAPENTIN 300 MG CAPSULE PO SCH ×2 (09:44→21:35)
[2022-10-28] MEDS: BALSAM PERU/CASTOR OIL 56.7 GM OINT...G. TP SCH (09:53)
[2022-10-28] MEDS ORDERED: CIPROFLOXACIN HCL 500 MG TABLET PO SCH (10:00)
[2022-10-28] MEDS: HYDROXYCHLOROQUINE SULFATE 200 MG TABLET PO SCH ×2 (10:00→21:34)
[2022-10-28] MEDS: INSULIN LISPRO SLIDING SCALE 100 UNITS/ML, 3 ML VIAL (humaLOG) SUBCUT PRN ×3 (11:33→21:52)
[2022-10-28] MEDS: MORPHINE 2 MG/ML INJ. SYRINGE IVP PRN (11:59)
[2022-10-28] MEDS: guaiFENesin 200 MG/10 ML UDC PO PRN ×2 (12:12→21:34)
[2022-10-28 13:12] VITALS: BP_SYST 141
[2022-10-28] MEDS ORDERED: ALBUMIN HUMAN 25% 50 ML IV ONE (13:15)
--- NOTE | 2022-10-28 14:59 | NUR ---
NOTIFIED BY MIGUEL IN LAB THAT PATIENT HAS ANTIBODIES AND THEY WILL NEED TO DRAW MORE BLOOD AND GET IT FROM THE [facility]. SHE WILL PROBABLY RECEIVE HER 1 UNIT OF BLOOD TONIGHT OR TOMORROW. DR ZAYAS HAS BEEN INFORMED AND HE ORDERED A HAPTOGLOBIN LAB TEST.
--- NOTE | 2022-10-28 15:49 | NUR ---
Patient was cleared bynursing for OT eval this pm. Pt was alert and was agreeable for OT eval. Pt. refused to stand up due to wound on both feet. Spoke to wound nurse and Dr. Degroot, said ok to stand up once adaptive shoes arrive. Wound nurse said he will order. Pt. was able to sit at edge of bed participate with functional task. Pls see OT evaluation form in pt's chart for more detail.
--- NOTE | 2022-10-28 16:19 | NUR ---
P.T. NOTES P.T. EVAL COMPLETED; REFER TO EVAL FOR DETAILS.
[2022-10-28 18:16] VITALS: BP_SYST 137
[2022-10-28 20:45] VITALS: BP_SYST 130
[2022-10-28] MEDS: ATORVASTATIN 20 MG TABLET PO SCH (21:34)
[2022-10-28] MEDS: buPROPion HCL 150 MG XL TAB PO SCH (21:35)
[2022-10-28] MEDS: FOLIC ACID 1 MG TABLET PO SCH (21:35)
[2022-10-28] MEDS: AMOXICILLIN/POTASSIUM CLAV 875 MG TABLET PO SCH (21:37)
[2022-10-28] MEDS: methIMAzole 5 MG TABLET PO SCH (21:37)
[2022-10-29 00:11] VITALS: BP_SYST 134
--- NOTE | 2022-10-29 00:40 | NUR ---
Spoke with Dr. Damien Vicente for clarification of Consent to Read order for debridement on 10/29. Also notified him that patient's Hgb is 6.3 and that she has a pending blood transfusion, but since the blood has to come through the [facility], there is no estimated time of delivery for the unit of blood. No verification provided, no further orders.
--- NOTE | 2022-10-29 00:50 | NUR ---
24 hour urine collection completed at 0050.
[2022-10-29] MEDS: PANTOPRAZOLE SODIUM 40 MG TAB PO SCH (07:00)
--- NOTE | 2022-10-29 07:30 | NUR ---
CLOSING Patient resting in bed, no s/s distress noted. NPO after midnight. Blood sugar 121 this morning. IV fluids infusing. Patient stated this morning that she dose not want to have surgery. Blood transfusion ordered but still pending blood from the [facility]. Per Nathaly and Ed from lab, they do not have an estimated time of delivery and will have to wait for the [facility] to call them. Endorsed to oncoming nurse.
[2022-10-29 08:00] VITALS: BP_SYST 139; BP_SYST 148
[2022-10-29 08:05] LABS: BASOPHILS % (AUTO) 0.4 % (0.0-2.0); EOSINOPHILS # (AUTO) 0.2 K/uL (0.0-0.4); EOSINOPHILS % (AUTO) 2.6 % (0.0-4.0); LYMPHOCYTES # (AUTO) 0.9 K/uL (1.0-5.5); LYMPHOCYTES % (AUTO) 11.4 % (20.5-51.5); MEAN CORPUSCULAR HEMOGLOBIN 29 pg (27-31); MEAN CORPUSCULAR HGB CONC 33 % (32-36); MEAN CORPUSCULAR VOLUME 87 fL (79.0-98.0); MONOCYTES # (AUTO) 0.9 K/uL (0.0-1.0); MONOCYTES % (AUTO) 11.2 % (1.7-9.3); NEUTROPHILS # (AUTO) 6.1 K/uL (1.8-7.7); NEUTROPHILS % (AUTO) 74.4 % (40.0-70.0); PLATELET COUNT (AUTO) 183 K/uL (130-430); RED BLOOD CELL COUNT(AUTO) 2.12 MIL/uL (4.2-6.2); RED CELL DISTRIBUTION WIDTH 15.1 % (9.0-15.0); WHITE BLOOD COUNT (AUTO) 8.2 K/uL (4.8-10.8)
--- NOTE | 2022-10-29 08:13 | NUR ---
opening notes: patient in bed with eyes open. responded to name. no s/s of distress or pain reported. breathing is even and unlabored RA 98%. patient is npo for procedure. all needs met at this time, safety checks made and call light within reach.
[2022-10-29 08:14] LABS: HEMATOCRIT 18.5 % (36-48); HEMOGLOBIN 6.1 g/dL (12.0-16.0)
[2022-10-29] MEDS: BALSAM PERU/CASTOR OIL 56.7 GM OINT...G. TP SCH (09:00)
[2022-10-29 09:21] LABS: TOTAL IRON BIND. CAPACITY 111 ug/dL (250-450)
[2022-10-29 11:17] VITALS: BP_SYST 149
[2022-10-29] MEDS: NACL 0.9% 1,000 ML IV SCH (13:06)
[2022-10-29] MEDS: ASCORBIC ACID 500 MG TABLET PO SCH (13:20)
[2022-10-29] MEDS: ASPIRIN 81 MG TABLET(ECOTRIN) PO SCH (13:20)
[2022-10-29] MEDS: CALCIUM CARBONATE 500 MG/ TAB.CHEW PO SCH ×2 (13:20→21:07)
[2022-10-29] MEDS: POLYETHYLENE GLYCOL 3350, 17 GM/ POWD.PACK PO SCH (13:20)
[2022-10-29] MEDS: AMOXICILLIN/POTASSIUM CLAV 875 MG TABLET PO SCH ×2 (13:21→21:05)
[2022-10-29] MEDS: POTASSIUM CHLORIDE 20 MEQ TAB.PRT.SR PO SCH ×2 (13:21→21:03)
[2022-10-29] MEDS: NEPHROVITE, (FOLIC ACID/VITAMIN B COMP W-C 1 TAB) PO SCH (13:22)
[2022-10-29] MEDS: MULTIVITAMINS TAB 1 TABLET PO SCH (13:22)
[2022-10-29] MEDS: DOCUSATE SODIUM 100 MG CAPSULE PO SCH ×2 (13:22→21:00)
[2022-10-29] MEDS: lisinopriL 5 MG TABLET PO SCH (13:22)
[2022-10-29] MEDS: Effexor 37.5 MG TAB PO SCH (13:23)
[2022-10-29] MEDS: GABAPENTIN 300 MG CAPSULE PO SCH ×2 (13:23→21:03)
[2022-10-29] MEDS: guaiFENesin ER 600 MG TAB PO SCH ×3 (13:23→21:04)
[2022-10-29] MEDS: CLOPIDOGREL BISULFATE 75 MG TABLET PO SCH (13:24)
[2022-10-29] MEDS: CARVEDILOL 12.5 MG TABLET (COREG) PO SCH ×2 (13:24→21:06)
[2022-10-29] MEDS: guaiFENesin 200 MG/10 ML UDC PO PRN ×2 (13:27→21:14)
[2022-10-29] MEDS: HYDROXYCHLOROQUINE SULFATE 200 MG TABLET PO SCH ×2 (13:27→21:07)
--- NOTE | 2022-10-29 14:05 | NUR ---
PHYSICAL THERAPY CO-SIGN The Physical Therapy Progress Notes documented by [employer] have been reviewed. Reviewed/Co-Signed by: Afshin Gross Documentation Done by:AZALIA CLARK Addendum: 10/29/22 at 1405 by Afshin Gross PT Amended: Links added.
[2022-10-29 15:06] VITALS: BP_SYST 140
[2022-10-29] MEDS: ACETAMINOPHEN 500 MG TABLET PO PRN (16:34)
[2022-10-29] MEDS: INSULIN LISPRO SLIDING SCALE 100 UNITS/ML, 3 ML VIAL (humaLOG) SUBCUT PRN ×2 (16:40→21:18)
[2022-10-29] MEDS: EPOETIN ALFA 10,000 UNITS/ML VIAL SUBCUT SCH (16:41)
--- NOTE | 2022-10-29 19:31 | NUR ---
closing notes: patient in bed watching tv. no s/s of distress or pain noted. breathing is even and unlabored on ra 98%. iv fluids running as prescribed and purewick is set to suction. all needs met at this time, safety checks made and call light within reach. will endorse to fast food shift supervisor nurse.
[2022-10-29 20:00] VITALS: BP_SYST 145
[2022-10-29] MEDS: FOLIC ACID 1 MG TABLET PO SCH (21:05)
[2022-10-29] MEDS: ATORVASTATIN 20 MG TABLET PO SCH (21:06)
[2022-10-29] MEDS: buPROPion HCL 150 MG XL TAB PO SCH (21:14)
[2022-10-29] MEDS: methIMAzole 5 MG TABLET PO SCH (21:22)
--- NOTE | 2022-10-29 23:00 | NUR ---
OPENING NOTES: Received during change of shift. Patient AA&Ox4 able to make needs known, call light within reach, denied pain or distress at the time. Chest rise even & unlabored on RA on med-surg monitoring. Midline noted to SANDI with fluids infusing as ordered. BLE redness us noted and legs are elevated with pillows. Blood transfusion is noted to be due this shift. Patient stable care was resumed. 2300: Patient was assessed as indicated, patient has received scheduled 2100 medications has ordered and requested PRN cough syrup. Patient blood transfusion was started at 5. Patient tolerating transfusion well. V/S are WNL and assessed as per blood transfusion protocol. Will continue to monitor patient throughout the shift.
[2022-10-30 00:52] LABS: TOTAL VOLUME 24HRS,URINE 890 mL
[2022-10-30 00:53] LABS: CREATININE,URINE 35.2 MG/DL (30-125)
--- NOTE | 2022-10-30 01:10 | NUR ---
BLOOD TRANSFUSION COMPLETED AT 0105. Patient is noted sleeping at this time, no s/s of distress and V/S are WNL. Will continue to monitor.
[2022-10-30 01:43] VITALS: BP_SYST 149
[2022-10-30 04:09] LABS: CREATININE CLEARANCE,URINE 67.1 ml/min (80-120); PATIENT WEIGHT 159 LBS
[2022-10-30 04:10] LABS: CREATININE 1.87 mg/dL (0.55-1.30)
[2022-10-30] MEDS: ONDANSETRON HCL 4 MG/2 ML VIAL IVP PRN (05:07)
[2022-10-30] MEDS: NACL 0.9% 1,000 ML IV SCH ×2 (05:12→17:05)
[2022-10-30] MEDS: PANTOPRAZOLE SODIUM 40 MG TAB PO SCH (06:34)
--- NOTE | 2022-10-30 07:03 | NUR ---
CLOSING NOTES: PATIENT is in bed resting no s/s of distress noted at this time. Chest rise is even and unlabored on RA. Safety measures are in place as per protocol and patient has call light within reach. All current shift needs have been met at this time & patient is stable, will differ further care to AM shift for continuity of care.
[2022-10-30 08:54] VITALS: BP_SYST 142
[2022-10-30] MEDS: GABAPENTIN 300 MG CAPSULE PO SCH ×2 (08:56→20:44)
[2022-10-30] MEDS: CLOPIDOGREL BISULFATE 75 MG TABLET PO SCH (08:56)
[2022-10-30] MEDS: NEPHROVITE, (FOLIC ACID/VITAMIN B COMP W-C 1 TAB) PO SCH (08:56)
[2022-10-30] MEDS: ASCORBIC ACID 500 MG TABLET PO SCH (08:57)
[2022-10-30] MEDS: ASPIRIN 81 MG TABLET(ECOTRIN) PO SCH (08:57)
[2022-10-30] MEDS: MULTIVITAMINS TAB 1 TABLET PO SCH (08:57)
[2022-10-30] MEDS: AMOXICILLIN/POTASSIUM CLAV 875 MG TABLET PO SCH (08:57)
[2022-10-30] MEDS: lisinopriL 5 MG TABLET PO SCH (08:57)
[2022-10-30] MEDS: Effexor 37.5 MG TAB PO SCH (08:57)
[2022-10-30] MEDS: CALCIUM CARBONATE 500 MG/ TAB.CHEW PO SCH ×2 (08:57→20:45)
[2022-10-30] MEDS: guaiFENesin ER 600 MG TAB PO SCH ×2 (08:58→20:46)
[2022-10-30] MEDS: POLYETHYLENE GLYCOL 3350, 17 GM/ POWD.PACK PO SCH ×2 (08:58→09:00)
[2022-10-30] MEDS: DOCUSATE SODIUM 100 MG CAPSULE PO SCH ×3 (08:58→21:00)
[2022-10-30] MEDS: CARVEDILOL 12.5 MG TABLET (COREG) PO SCH ×2 (08:59→21:32)
[2022-10-30] MEDS: POTASSIUM CHLORIDE 20 MEQ TAB.PRT.SR PO SCH ×2 (08:59→20:46)
[2022-10-30] MEDS: BALSAM PERU/CASTOR OIL 56.7 GM OINT...G. TP SCH (09:03)
[2022-10-30] MEDS: INSULIN LISPRO SLIDING SCALE 100 UNITS/ML, 3 ML VIAL (humaLOG) SUBCUT PRN ×2 (11:17→21:34)
[2022-10-30] MEDS: HYDROXYCHLOROQUINE SULFATE 200 MG TABLET PO SCH ×2 (11:17→21:15)
[2022-10-30 11:20] VITALS: BP_SYST 142
[2022-10-30 12:42] LABS: BASOPHILS % (AUTO) 0.4 % (0.0-2.0); EOSINOPHILS # (AUTO) 0.2 K/uL (0.0-0.4); EOSINOPHILS % (AUTO) 2.2 % (0.0-4.0); HEMATOCRIT 24.7 % (36-48); HEMOGLOBIN 8.1 g/dL (12.0-16.0); LYMPHOCYTES # (AUTO) 0.9 K/uL (1.0-5.5); MEAN CORPUSCULAR HEMOGLOBIN 29 pg (27-31); MEAN CORPUSCULAR HGB CONC 33 % (32-36); MEAN CORPUSCULAR VOLUME 88 fL (79.0-98.0); MONOCYTES # (AUTO) 0.7 K/uL (0.0-1.0); MONOCYTES % (AUTO) 8.4 % (1.7-9.3); NEUTROPHILS # (AUTO) 6.5 K/uL (1.8-7.7); PLATELET COUNT (AUTO) 243 K/uL (130-430); RED BLOOD CELL COUNT(AUTO) 2.81 MIL/uL (4.2-6.2); RED CELL DISTRIBUTION WIDTH 14.9 % (9.0-15.0); WHITE BLOOD COUNT (AUTO) 8.4 K/uL (4.8-10.8)
[2022-10-30 14:07] LABS: CREATININE, URINE 56.9 mg/dL (Not Estab.); MICROALBUMIN URINE RANDOM 129.5 ug/mL (Not Estab.)
--- NOTE | 2022-10-30 14:54 | NUR ---
PHYSICAL THERAPY CO-SIGN The Physical Therapy Progress Notes documented by Occupational Therapist Aide have been reviewed. Reviewed/Co-Signed by: Afshin Gross Documentation Done by:AZALIA CLARK Addendum: 10/30/22 at 1455 by Afshin Gross PT Amended: Links added.
--- NOTE | 2022-10-30 15:41 | NUR ---
Patient refuses physical and occupational therapy this shift after saying that she wants more treatment.
[2022-10-30 16:50] VITALS: BP_SYST 133
[2022-10-30 19:35] VITALS: BP_SYST 132
[2022-10-30] MEDS: FOLIC ACID 1 MG TABLET PO SCH (20:45)
[2022-10-30] MEDS: methIMAzole 5 MG TABLET PO SCH (20:45)
[2022-10-30] MEDS: ATORVASTATIN 20 MG TABLET PO SCH (20:45)
[2022-10-30] MEDS: buPROPion HCL 150 MG XL TAB PO SCH (20:49)
[2022-10-30] MEDS: MORPHINE 2 MG/ML INJ. SYRINGE IVP PRN (21:33)
[2022-10-30] MEDS: guaiFENesin 200 MG/10 ML UDC PO PRN (22:49)
[2022-10-30] MEDS: ACETAMINOPHEN 500 MG TABLET PO PRN (22:49)
[2022-10-30] MEDS: VANCOMYCIN HCL 750 MG in NS 250 ML IV SCH (22:55)
[2022-10-31 00:18] VITALS: BP_SYST 128
[2022-10-31] MEDS: PANTOPRAZOLE SODIUM 40 MG TAB PO SCH (06:34)
[2022-10-31] MEDS: NACL 0.9% 1,000 ML IV SCH ×2 (06:35→21:54)
--- NOTE | 2022-10-31 06:50 | NUR ---
CLOSING NOTE PATIENT WAS COOPERATIVE TO CARE THROUGHOUT THE NIGHT. SHE HAD A FRESH LINEN CHANGE THIS MORNING AND NEW PUREWICK CHANGE.
[2022-10-31 07:45] VITALS: BP_SYST 148
[2022-10-31] MEDS: DOCUSATE SODIUM 100 MG CAPSULE PO SCH ×2 (09:00→21:46)
[2022-10-31] MEDS: POLYETHYLENE GLYCOL 3350, 17 GM/ POWD.PACK PO SCH (09:00)
[2022-10-31] MEDS: MULTIVITAMINS TAB 1 TABLET PO SCH (09:24)
[2022-10-31] MEDS: CARVEDILOL 12.5 MG TABLET (COREG) PO SCH ×2 (09:24→21:46)
[2022-10-31] MEDS: Effexor 37.5 MG TAB PO SCH (09:24)
[2022-10-31] MEDS: ASCORBIC ACID 500 MG TABLET PO SCH (09:24)
[2022-10-31] MEDS: NEPHROVITE, (FOLIC ACID/VITAMIN B COMP W-C 1 TAB) PO SCH (09:24)
[2022-10-31] MEDS: CALCIUM CARBONATE 500 MG/ TAB.CHEW PO SCH ×2 (09:24→21:45)
[2022-10-31] MEDS: POTASSIUM CHLORIDE 20 MEQ TAB.PRT.SR PO SCH ×2 (09:25→21:53)
[2022-10-31] MEDS: GABAPENTIN 300 MG CAPSULE PO SCH ×2 (09:25→21:45)
[2022-10-31] MEDS: lisinopriL 5 MG TABLET PO SCH (09:26)
[2022-10-31] MEDS: guaiFENesin ER 600 MG TAB PO SCH ×2 (09:26→21:45)
[2022-10-31] MEDS: BALSAM PERU/CASTOR OIL 56.7 GM OINT...G. TP SCH (09:31)
[2022-10-31] MEDS: HYDROXYCHLOROQUINE SULFATE 200 MG TABLET PO SCH ×2 (10:10→21:55)
[2022-10-31 11:21] VITALS: BP_SYST 136
[2022-10-31] MEDS: INSULIN LISPRO SLIDING SCALE 100 UNITS/ML, 3 ML VIAL (humaLOG) SUBCUT PRN ×3 (11:45→21:49)
--- NOTE | 2022-10-31 15:46 | NUR ---
Pt. was cleared by nursing for OT tx, pt was alert and cooperative with tx. Pls see OT tx notes in chart for more detail. Nursing notified.
[2022-10-31 16:07] VITALS: BP_SYST 147
[2022-10-31] MEDS: EPOETIN ALFA 10,000 UNITS/ML VIAL SUBCUT SCH (16:41)
[2022-10-31] MEDS: MORPHINE 2 MG/ML INJ. SYRINGE IVP PRN ×2 (17:13→23:33)
--- NOTE | 2022-10-31 20:24 | NUR ---
PHONED PAGED DR MARQUEZ MARIN REGARDING MIDLINE REMOVAL SANDI / .
[2022-10-31 20:30] VITALS: BP_SYST 144
[2022-10-31] MEDS: FOLIC ACID 1 MG TABLET PO SCH (21:45)
[2022-10-31] MEDS: ATORVASTATIN 20 MG TABLET PO SCH (21:46)
[2022-10-31] MEDS: buPROPion HCL 150 MG XL TAB PO SCH (21:47)
[2022-10-31] MEDS: methIMAzole 5 MG TABLET PO SCH (21:47)
[2022-10-31] MEDS: VANCOMYCIN HCL 750 MG in NS 250 ML IV SCH (21:54)
[2022-10-31] MEDS: guaiFENesin 200 MG/10 ML UDC PO PRN (23:45)
--- NOTE | 2022-10-31 23:45 | NUR ---
MIDLINE SANDI D/C site clean no bleeding noted patient awake alert .
[2022-11-01 00:19] VITALS: BP_SYST 141
--- NOTE | 2022-11-01 03:07 | NUR ---
morphine sulfate 1 mg ivp given for general pain & helpful / .
[2022-11-01 05:22] LABS: BASOPHILS # (AUTO) 0.1 K/uL (0.0-0.2); BASOPHILS % (AUTO) 0.7 % (0.0-2.0); EOSINOPHILS # (AUTO) 0.2 K/uL (0.0-0.4); EOSINOPHILS % (AUTO) 1.6 % (0.0-4.0); HEMATOCRIT 22.8 % (36-48); HEMOGLOBIN 7.5 g/dL (12.0-16.0); LYMPHOCYTES # (AUTO) 1.3 K/uL (1.0-5.5); LYMPHOCYTES % (AUTO) 13.4 % (20.5-51.5); MEAN CORPUSCULAR HEMOGLOBIN 29 pg (27-31); MEAN CORPUSCULAR HGB CONC 33 % (32-36); MEAN CORPUSCULAR VOLUME 87 fL (79.0-98.0); MONOCYTES # (AUTO) 0.7 K/uL (0.0-1.0); MONOCYTES % (AUTO) 7.3 % (1.7-9.3); NEUTROPHILS # (AUTO) 7.2 K/uL (1.8-7.7); PLATELET COUNT (AUTO) 319 K/uL (130-430); RED BLOOD CELL COUNT(AUTO) 2.62 MIL/uL (4.2-6.2); RED CELL DISTRIBUTION WIDTH 15.1 % (9.0-15.0); WHITE BLOOD COUNT (AUTO) 9.4 K/uL (4.8-10.8)
[2022-11-01 05:31] LABS: ANION GAP 9 (5-15); CHLORIDE 107 mmol/L (98-107); GLUCOSE 82 mg/dL (70-99); UREA NITROGEN, BLOOD 27 mg/dL (8-21)
[2022-11-01] MEDS: PANTOPRAZOLE SODIUM 40 MG TAB PO SCH (07:27)
[2022-11-01 07:56] VITALS: BP_SYST 143
[2022-11-01] MEDS: NEPHROVITE, (FOLIC ACID/VITAMIN B COMP W-C 1 TAB) PO SCH (08:37)
[2022-11-01] MEDS: MULTIVITAMINS TAB 1 TABLET PO SCH (08:37)
[2022-11-01] MEDS: lisinopriL 5 MG TABLET PO SCH (08:38)
[2022-11-01] MEDS: Effexor 37.5 MG TAB PO SCH (08:39)
[2022-11-01] MEDS: ASCORBIC ACID 500 MG TABLET PO SCH (08:39)
[2022-11-01] MEDS: guaiFENesin ER 600 MG TAB PO SCH ×2 (08:39→21:03)
[2022-11-01] MEDS: CALCIUM CARBONATE 500 MG/ TAB.CHEW PO SCH ×2 (08:39→21:03)
[2022-11-01] MEDS: GABAPENTIN 300 MG CAPSULE PO SCH ×2 (08:39→21:02)
[2022-11-01] MEDS: BALSAM PERU/CASTOR OIL 56.7 GM OINT...G. TP SCH (08:40)
[2022-11-01] MEDS: POTASSIUM CHLORIDE 20 MEQ TAB.PRT.SR PO SCH ×2 (08:40→21:03)
[2022-11-01] MEDS: CARVEDILOL 12.5 MG TABLET (COREG) PO SCH ×2 (08:40→21:02)
[2022-11-01] MEDS: DOCUSATE SODIUM 100 MG CAPSULE PO SCH ×2 (08:41→21:04)
[2022-11-01] MEDS: POLYETHYLENE GLYCOL 3350, 17 GM/ POWD.PACK PO SCH (08:41)
[2022-11-01] MEDS: HYDROXYCHLOROQUINE SULFATE 200 MG TABLET PO SCH ×2 (10:17→21:37)
--- NOTE | 2022-11-01 11:30 | NUR ---
CM: Informed safia Snell to home with HH with possible snf placement. Will verify with for snf order. Pending I/D with dr. BOYER for Thursday. Pt was on Plavix. Bill Shalonda cx positive, pending I/S Addendum: 11/01/22 at 1611 by Ayah Prater RN Late entry: the snf placement order faxed to [facility] at 1300.
[2022-11-01 11:51] VITALS: BP_SYST 143
--- NOTE | 2022-11-01 12:18 | NUR ---
>>>PT NOTES<<< PATIENT REFUSED PHYSICAL THERAPY TODAY DUE TO C/O TIREDNESS. WILL FOLLOW UP ON 11/03/22.
[2022-11-01] MEDS: NACL 0.9% 1,000 ML IV SCH (12:23)
[2022-11-01] MEDS: INSULIN LISPRO SLIDING SCALE 100 UNITS/ML, 3 ML VIAL (humaLOG) SUBCUT PRN ×2 (12:23→21:24)
--- NOTE | 2022-11-01 13:29 | NUR ---
Nutrition F/U Admitting Diagnosis Cellulitis Reviewed Pertinent Medical/Surgical Hx Medical Record Patient Medical History Comment: Per H&P, 72-yo female with worsening of the ulcers in the bottom of her feet bilaterally with oozing discoloration and pain brought the patient to the ER. Current diagnosis, diabetes mellitus, diabetic neuropathy, foot ulcer, wound care, surgical debridement. Per progress note (10/27/22) Dr. Degroot, surgical debridement not indicated at this time, renal insufficiency plan to have nephrology follow patient as an outpatient, possible discharge. Per RD chart review 11/01: plan for I&D/debridement Sx 11/04 (Thursday). Subjective Information: RD met w/ pt at bedside this afternoon. Pt was in the middle of eating lunch -- so far, 25% eaten. She described "so-so" appetite since admission. She relayed food preferences (tuna sandwich every other day for lunch, and milk w/ some meals). RD noted in [employer]. She attested to last BM x1 yesterday, no V/C/D, however, experiencing occasional N -- likely d/t ABX treatment. No chewing/swallowing problems or false teeth. Bedscale wt taken: 196# -- unsure of reliability as this would indicate a possible 37# wt gain within 5 days. Current diet is adequate/appropriate to meet nutritional needs. RD spoke w/ primary RN to discuss pt, and he agreed, pt is eating/drinking without difficulties. Current Diet Order/Nutrition Support: CCHO x3 days & Adalberto BID x0 days Patient/Significant Other Able To Verbalize Education Provided Not Indicated Pertinent Medications: vancomycin, zofran, morphine, SSI, folic acid, lipitor, protonix, zinc sulfate, nephrovite, miralax, MVI, VIT C, colace, tums, glipizide Pertinent Labs: 11/01: H/H 7.5 L/22.8 L, BUN 27 H, CRE 1.5 H, BG 82 WNL; 10/25: HgA1c 10.4 H Height (Feet) 5 feet Height (Inches) 5.00 inches Weight (Pounds) 159 pounds -- stable since Patient Weight 72.121 kg Body Mass Index 26.46 kg/m2 [place]/Adjusted Body Weight IBW 125+/- 10%; ABW 139 lbs. for geriatric maintenance Recent Weight Change patient states some weight loss but does not know how much Weight Status Overweight Gastrointestinal Symptoms Constipation Last BM 11/01/22 Food Allergies No - Per patient, NKFA Usual Diet At Home Regular Skin Integrity Comment: Herber Score: 15 Skin: wounds to L/R foot and L lower leg erythema noted 11/01 Edema: L leg noted 11/01 Current % PO 78% average x11 meal records -- good, improving Estimated Energy Expenditure (kcals/day) 4731-1986 kcals/day (30-35 kcals/kg of ABW 63 kg for wounds/geriatrics) Estimated Protein Required (g/day) 63-95 gm/day (1.0-1.5 gm/kg of ABW 63 kg for wound/geritrics) Estimated Fluid Required (l/day) 1.9-2.2 L/day (1 mL/kcal or per MD Rx) Problem/Etiology/Signs/Symptoms * Altered nutrition-related lab values r/t endocrine/renal dysfunction and current medical condition AEB H/H, BUN/CRE, and BG/HgA1c lab values. *Slight improvement * Increased nutrient needs r/t wound healing AEB has diabetic foot ulcers. *Ongoing * Inadequate protein/energy intake r/t poor appetite AEB reported inadequate PO intake (intakes variable). *Ongoing Expected Outcomes/Goals * PO intake to meet 80-100% of estimated nutrient need without GI complications (ongoing) * Improved/stable nutrition-related labs (ongoing) * Signs of wound healing by discharge (ongoing) Dietitian Recommendations * Continue CCHO diet, Adalberto BID (supplement yields 180 kcal/day, 5 gm protein/day) * Continue MVIs for wound healing Monitor/Evaluation Comment PO intake, GI, skin, labs Follow Up Mod Risk: F/U in 3-5 days
--- NOTE | 2022-11-01 13:31 | NUR ---
Dietitian Recommendations * Continue [facility] diet, Adalberto BID (supplement yields 180 kcal/day, 5 gm protein/day) * Continue MVIs for wound healing LP, MS, RD Please refer to Nutrition F/U for details.
[2022-11-01 18:07] VITALS: BP_SYST 148
[2022-11-01 19:45] VITALS: BP_SYST 144
[2022-11-01] MEDS: buPROPion HCL 150 MG XL TAB PO SCH (21:01)
[2022-11-01] MEDS: methIMAzole 5 MG TABLET PO SCH (21:03)
[2022-11-01] MEDS: FOLIC ACID 1 MG TABLET PO SCH (21:03)
[2022-11-01] MEDS: ATORVASTATIN 20 MG TABLET PO SCH (21:03)
[2022-11-01] MEDS: LANOLIN ALCOHOL/MO/W.PET/CERES 57 GM CREAM..G. TP SCH (21:15)
[2022-11-01] MEDS: VANCOMYCIN HCL 750 MG in NS 250 ML IV SCH (21:56)
--- NOTE | 2022-11-01 22:01 | NUR ---
Gordo Administered scheduled antibiotic. Reviewed side effects and she verbalized understanding.
--- NOTE | 2022-11-01 22:48 | NUR ---
NOT AVAILABLE MEDICATION ORDERED EUCERIN FOR LEG SKIN. MEDICATION IS NO AVAILABLE AT THIS TIME. NOTIFIED PT WITH PHARMACIST WILL PREPARE TOMORROW MORNING.
--- NOTE | 2022-11-02 00:52 | NUR ---
PAIN PT REPORTED PAIN SHOULDER AND BACK. ASKED PAIN MEDICATION. ENDORSED TO EUNICE AMADOR FOR IV MORPHINE.
[2022-11-02] MEDS: MORPHINE 2 MG/ML INJ. SYRINGE IVP PRN ×4 (01:15→23:11)
--- NOTE | 2022-11-02 01:20 | NUR ---
Morphine Patient reporting severe pain (10/10), generalized to her body. Administered Morphine as ordered IVP. Reviewed side effects and she verbalized understanding.
[2022-11-02 01:29] VITALS: BP_SYST 133
[2022-11-02] MEDS: NACL 0.9% 1,000 ML IV SCH ×2 (01:42→13:51)
--- NOTE | 2022-11-02 02:48 | NUR ---
ROUNDING NOTE PT LYING IN BED AND EYES CLOSED. RESTING COMFORTABLY. BREATHING EVEN AND NONLABORED. NO PAIN REPORTED. SAFETY CHECKS IN PLACE. CALL LIGHT IN REACH. CONTINUE TO MONITOR
--- NOTE | 2022-11-02 04:45 | NUR ---
ROUNDING NOTE PT LYING IN BED AND EYES CLOSED. IV RUNNING @100. NO S/S OF ACUTE DISTRESS OR PAIN. SAFETY CHECKS IN PLACE. CALL LIGHT IN REACH. CONTINUE TO MONITOR
[2022-11-02 05:38] LABS: BASOPHILS % (AUTO) 0.6 % (0.0-2.0); EOSINOPHILS # (AUTO) 0.2 K/uL (0.0-0.4); EOSINOPHILS % (AUTO) 2.3 % (0.0-4.0); HEMATOCRIT 23.9 % (36-48); HEMOGLOBIN 7.9 g/dL (12.0-16.0); LYMPHOCYTES # (AUTO) 1.3 K/uL (1.0-5.5); LYMPHOCYTES % (AUTO) 16.1 % (20.5-51.5); MEAN CORPUSCULAR HEMOGLOBIN 29 pg (27-31); MEAN CORPUSCULAR HGB CONC 33 % (32-36); MEAN CORPUSCULAR VOLUME 87 fL (79.0-98.0); MONOCYTES # (AUTO) 0.6 K/uL (0.0-1.0); MONOCYTES % (AUTO) 7.6 % (1.7-9.3); NEUTROPHILS # (AUTO) 6.1 K/uL (1.8-7.7); NEUTROPHILS % (AUTO) 73.4 % (40.0-70.0); PLATELET COUNT (AUTO) 366 K/uL (130-430); RED BLOOD CELL COUNT(AUTO) 2.74 MIL/uL (4.2-6.2); WHITE BLOOD COUNT (AUTO) 8.4 K/uL (4.8-10.8)
[2022-11-02 06:32] LABS: ERYTHROCYTE SEDIMENTATION RATE 70 MM/HR (0-20)
[2022-11-02] MEDS: PANTOPRAZOLE SODIUM 40 MG TAB PO SCH (06:56)
--- NOTE | 2022-11-02 07:30 | NUR ---
Report received from hourly shift RN for continuity of care. Patient stable. Resting. VSS.
--- NOTE | 2022-11-02 07:30 | NUR ---
CLOSING NOTE PT LYING IN BED AND EYES CLOSED. IV RUNNING @100. NO S/S OF ACUTE DISTRESS OR PAIN. SAFETY CHECKS IN PLACE. CALL LIGHT IN REACH. ENDORSED TO DAY SHIFT NURSE
[2022-11-02 07:58] LABS: ANION GAP 9 (5-15); C-REACTIVE PROTEIN QUANT 8.9 mg/dL (0-0.5); CHLORIDE 108 mmol/L (98-107); CREATININE 1.34 mg/dL (0.55-1.30); GLUCOSE 136 mg/dL (70-99); PHOSPHORUS 4.5 mg/dL (2.7-4.5); UREA NITROGEN, BLOOD 25 mg/dL (8-21)
[2022-11-02 08:00] VITALS: BP_SYST 149
[2022-11-02] MEDS: ASCORBIC ACID 500 MG TABLET PO SCH (08:36)
[2022-11-02] MEDS: DOCUSATE SODIUM 100 MG CAPSULE PO SCH ×2 (08:36→20:21)
[2022-11-02] MEDS: lisinopriL 5 MG TABLET PO SCH (08:37)
[2022-11-02] MEDS: NEPHROVITE, (FOLIC ACID/VITAMIN B COMP W-C 1 TAB) PO SCH (08:38)
[2022-11-02] MEDS: CALCIUM CARBONATE 500 MG/ TAB.CHEW PO SCH ×3 (08:38→20:33)
[2022-11-02] MEDS: GABAPENTIN 300 MG CAPSULE PO SCH ×2 (08:38→20:27)
[2022-11-02] MEDS: POLYETHYLENE GLYCOL 3350, 17 GM/ POWD.PACK PO SCH (08:39)
[2022-11-02] MEDS: POTASSIUM CHLORIDE 20 MEQ TAB.PRT.SR PO SCH ×2 (08:39→20:18)
[2022-11-02] MEDS: MULTIVITAMINS TAB 1 TABLET PO SCH (08:39)
[2022-11-02] MEDS: guaiFENesin ER 600 MG TAB PO SCH ×2 (08:39→20:26)
[2022-11-02] MEDS: CARVEDILOL 12.5 MG TABLET (COREG) PO SCH ×2 (08:40→20:27)
[2022-11-02] MEDS: HYDROXYCHLOROQUINE SULFATE 200 MG TABLET PO SCH ×2 (08:41→21:17)
[2022-11-02] MEDS: LANOLIN ALCOHOL/MO/W.PET/CERES 57 GM CREAM..G. TP SCH ×2 (08:42→20:32)
[2022-11-02] MEDS: Effexor 37.5 MG TAB PO SCH (09:03)
[2022-11-02] MEDS: BALSAM PERU/CASTOR OIL 56.7 GM OINT...G. TP SCH (09:03)
[2022-11-02 11:34] VITALS: BP_SYST 139
[2022-11-02] MEDS: INSULIN LISPRO SLIDING SCALE 100 UNITS/ML, 3 ML VIAL (humaLOG) SUBCUT PRN ×2 (14:01→17:09)
--- NOTE | 2022-11-02 18:44 | NUR ---
Patient in stable condition. Changed dressing. No distress noted. Patient able to eat ok.
[2022-11-02 19:29] VITALS: BP_SYST 129
--- NOTE | 2022-11-02 19:38 | NUR ---
Report given to vault teller RN for continuity of care. No distress noted.
[2022-11-02] MEDS: methIMAzole 5 MG TABLET PO SCH (20:25)
[2022-11-02] MEDS: FOLIC ACID 1 MG TABLET PO SCH (20:26)
[2022-11-02] MEDS: buPROPion HCL 150 MG XL TAB PO SCH (20:26)
[2022-11-02] MEDS: ATORVASTATIN 20 MG TABLET PO SCH (20:26)
[2022-11-02] MEDS: VANCOMYCIN HCL 750 MG in NS 250 ML IV SCH (21:18)
[2022-11-02] MEDS: guaiFENesin 200 MG/10 ML UDC PO PRN (21:18)
[2022-11-02] MEDS: ONDANSETRON HCL 4 MG/2 ML VIAL IVP PRN (23:16)
[2022-11-03 00:45] VITALS: BP_SYST 120
[2022-11-03 05:04] LABS: BASOPHILS % (AUTO) 0.5 % (0.0-2.0); EOSINOPHILS # (AUTO) 0.2 K/uL (0.0-0.4); HEMATOCRIT 23.7 % (36-48); HEMOGLOBIN 7.9 g/dL (12.0-16.0); LYMPHOCYTES # (AUTO) 0.9 K/uL (1.0-5.5); LYMPHOCYTES % (AUTO) 10.2 % (20.5-51.5); MEAN CORPUSCULAR HEMOGLOBIN 29 pg (27-31); MEAN CORPUSCULAR HGB CONC 33 % (32-36); MEAN CORPUSCULAR VOLUME 87 fL (79.0-98.0); MONOCYTES # (AUTO) 0.5 K/uL (0.0-1.0); NEUTROPHILS # (AUTO) 7.6 K/uL (1.8-7.7); NEUTROPHILS % (AUTO) 82.3 % (40.0-70.0); PLATELET COUNT (AUTO) 370 K/uL (130-430); RED BLOOD CELL COUNT(AUTO) 2.73 MIL/uL (4.2-6.2); RED CELL DISTRIBUTION WIDTH 15.3 % (9.0-15.0); WHITE BLOOD COUNT (AUTO) 9.2 K/uL (4.8-10.8)
[2022-11-03 06:02] LABS: ALANINE AMINOTRANSFERASE 17 U/L (12-78); ALBUMIN 1.9 g/dL (3.4-4.8); ANION GAP 8 (5-15); ASPARTATE AMINOTRANSFERASE 15 U/L (10-37); C-REACTIVE PROTEIN QUANT 6.6 mg/dL (0-0.5); CALCIUM 8.7 mg/dL (8.4-11.0); CHLORIDE 107 mmol/L (98-107); CREATININE 1.53 mg/dL (0.55-1.30); GLUCOSE 94 mg/dL (70-99); PHOSPHORUS 4.5 mg/dL (2.7-4.5); TOTAL BILIRUBIN 0.2 mg/dL (0.0-1.0); UREA NITROGEN, BLOOD 27 mg/dL (8-21)
[2022-11-03] MEDS: PANTOPRAZOLE SODIUM 40 MG TAB PO SCH (06:35)
[2022-11-03] MEDS: NACL 0.9% 1,000 ML IV SCH ×2 (06:43→21:36)
--- NOTE | 2022-11-03 06:47 | NUR ---
Perineal care given , pain in the bilateral foot was controlled , kept elevated to pillow to help alleviate the pain, dressing dry/intact , needs attended.
[2022-11-03 07:07] LABS: ERYTHROCYTE SEDIMENTATION RATE 60 MM/HR (0-20)
[2022-11-03 08:00] VITALS: BP_SYST 125
[2022-11-03] MEDS: MORPHINE 2 MG/ML INJ. SYRINGE IVP PRN (08:13)
[2022-11-03] MEDS: GABAPENTIN 300 MG CAPSULE PO SCH ×2 (08:14→22:19)
[2022-11-03] MEDS: guaiFENesin ER 600 MG TAB PO SCH ×2 (08:14→22:29)
[2022-11-03] MEDS: POTASSIUM CHLORIDE 20 MEQ TAB.PRT.SR PO SCH ×2 (08:14→22:29)
[2022-11-03] MEDS: Effexor 37.5 MG TAB PO SCH (08:15)
[2022-11-03] MEDS: CARVEDILOL 12.5 MG TABLET (COREG) PO SCH ×2 (08:15→22:22)
[2022-11-03] MEDS: ASCORBIC ACID 500 MG TABLET PO SCH (08:16)
[2022-11-03] MEDS: DOCUSATE SODIUM 100 MG CAPSULE PO SCH ×2 (08:16→22:14)
[2022-11-03] MEDS: lisinopriL 5 MG TABLET PO SCH (08:17)
[2022-11-03] MEDS: POLYETHYLENE GLYCOL 3350, 17 GM/ POWD.PACK PO SCH (08:18)
[2022-11-03] MEDS: MULTIVITAMINS TAB 1 TABLET PO SCH (08:20)
[2022-11-03] MEDS: NEPHROVITE, (FOLIC ACID/VITAMIN B COMP W-C 1 TAB) PO SCH (08:20)
--- NOTE | 2022-11-03 08:27 | NUR ---
PHYSICAL THERAPY CO-SIGN The Physical Therapy Progress Notes documented by [employer] have been reviewed. Reviewed/Co-Signed by: Afshin Gross Documentation Done by:AZALIA CLAKR Addendum: 11/03/22 at 3044 by Afshin Gross PT Amended: Links added.
[2022-11-03] MEDS: LANOLIN ALCOHOL/MO/W.PET/CERES 57 GM CREAM..G. TP SCH ×2 (10:11→22:20)
[2022-11-03] MEDS: HYDROXYCHLOROQUINE SULFATE 200 MG TABLET PO SCH ×2 (10:18→22:31)
[2022-11-03 11:21] VITALS: BP_SYST 127
[2022-11-03] MEDS: BALSAM PERU/CASTOR OIL 56.7 GM OINT...G. TP SCH (11:30)
--- NOTE | 2022-11-03 11:48 | NUR ---
PATIENT REFUSED PT TREATMENT TODAY D/T INCREASED PAIN THROUGHOUT HER BODY. WILL TRY AGAIN TOMORROW.
[2022-11-03 15:41] VITALS: BP_SYST 114
[2022-11-03] MEDS: INSULIN LISPRO SLIDING SCALE 100 UNITS/ML, 3 ML VIAL (humaLOG) SUBCUT PRN ×2 (17:26→22:37)
--- NOTE | 2022-11-03 18:35 | NUR ---
Dressing change. No drainage. Wound CDI. No further issues at this time.
[2022-11-03] MEDS: EPOETIN ALFA 10,000 UNITS/ML VIAL SUBCUT SCH (18:57)
[2022-11-03 20:00] VITALS: BP_SYST 144
[2022-11-03] MEDS: ATORVASTATIN 20 MG TABLET PO SCH (22:15)
[2022-11-03] MEDS: methIMAzole 5 MG TABLET PO SCH (22:16)
[2022-11-03] MEDS: CALCIUM CARBONATE 500 MG/ TAB.CHEW PO SCH (22:18)
[2022-11-03] MEDS: guaiFENesin 200 MG/10 ML UDC PO PRN (22:41)
[2022-11-03] MEDS: FOLIC ACID 1 MG TABLET PO SCH (22:42)
[2022-11-03] MEDS: buPROPion HCL 150 MG XL TAB PO SCH (22:42)
[2022-11-03] MEDS: VANCOMYCIN HCL 750 MG in NS 250 ML IV SCH (22:44)
[2022-11-04] VITALS: BP_SYST 144
--- NOTE | 2022-11-04 | NUR ---
INSTRUCTED ABOUT NPO FOR SURGERY IS RECEPTIVE
[2022-11-04 05:20] LABS: BASOPHILS % (AUTO) 0.6 % (0.0-2.0); EOSINOPHILS # (AUTO) 0.2 K/uL (0.0-0.4); EOSINOPHILS % (AUTO) 2.2 % (0.0-4.0); HEMATOCRIT 24.8 % (36-48); HEMOGLOBIN 8.2 g/dL (12.0-16.0); LYMPHOCYTES # (AUTO) 1.3 K/uL (1.0-5.5); LYMPHOCYTES % (AUTO) 19.2 % (20.5-51.5); MEAN CORPUSCULAR HEMOGLOBIN 29 pg (27-31); MEAN CORPUSCULAR HGB CONC 33 % (32-36); MEAN CORPUSCULAR VOLUME 87 fL (79.0-98.0); MONOCYTES # (AUTO) 0.6 K/uL (0.0-1.0); MONOCYTES % (AUTO) 8.4 % (1.7-9.3); NEUTROPHILS # (AUTO) 4.7 K/uL (1.8-7.7); NEUTROPHILS % (AUTO) 69.6 % (40.0-70.0); PLATELET COUNT (AUTO) 447 K/uL (130-430); RED BLOOD CELL COUNT(AUTO) 2.86 MIL/uL (4.2-6.2); RED CELL DISTRIBUTION WIDTH 14.6 % (9.0-15.0); WHITE BLOOD COUNT (AUTO) 6.8 K/uL (4.8-10.8)
[2022-11-04 05:40] LABS: ANION GAP 8 (5-15); C-REACTIVE PROTEIN QUANT 5.4 mg/dL (0-0.5); CALCIUM 9.2 mg/dL (8.4-11.0); CHLORIDE 108 mmol/L (98-107); PHOSPHORUS 4.3 mg/dL (2.7-4.5); UREA NITROGEN, BLOOD 28 mg/dL (8-21)
[2022-11-04 06:03] LABS: GLUCOSE 50 mg/dL (70-99)
[2022-11-04] MEDS: DEXTROSE 50% JECT 50 ML DISP.SYRIN IVP PRN (06:15)
--- NOTE | 2022-11-04 06:15 | NUR ---
BLOOD SUGAR 49 D50 IVP GIVEN FOLLOWED BY D5 W @30 ML PER HOUR
--- NOTE | 2022-11-04 06:55 | NUR ---
BLOOD SUGAR 125 PATIENT IS ALERT NPO MAINTAINED
[2022-11-04 07:37] LABS: ERYTHROCYTE SEDIMENTATION RATE 80 MM/HR (0-20)
[2022-11-04 08:00] VITALS: BP_SYST 123
[2022-11-04] MEDS: BALSAM PERU/CASTOR OIL 56.7 GM OINT...G. TP SCH (09:00)
[2022-11-04] MEDS: LANOLIN ALCOHOL/MO/W.PET/CERES 57 GM CREAM..G. TP SCH ×2 (09:00→21:29)
[2022-11-04 11:29] VITALS: BP_SYST 140
[2022-11-04] MEDS ORDERED: ONDANSETRON HCL 4 MG/2 ML VIAL IVP PRN (13:00)
[2022-11-04] MEDS ORDERED: KETOROLAC TROMETHAMINE 30 MG VIAL IVP PRN (13:00)
[2022-11-04] MEDS ORDERED: MORPHINE 4 MG INJ. 4 MG/ML VIAL IVP PRN (13:00)
[2022-11-04 14:10] VITALS: BP_SYST 146
--- NOTE | 2022-11-04 14:33 | NUR ---
PATIENT IS UNABLE TO PARTICIPATE IN TREATMENT TODAY D/T GOING TO SX. WILL TRY AGAIN TOMORROW.
[2022-11-04 15:06] LABS: ATYPICAL pANCA <1:20 titer (Neg:<1:20); CYTOPLASMIC (C-ANCA) <1:20 titer (Neg:<1:20); CYTOPLASMIC (P-ANCA) <1:20 titer (Neg:<1:20)
[2022-11-04] MEDS: NEPHROVITE, (FOLIC ACID/VITAMIN B COMP W-C 1 TAB) PO SCH (15:18)
[2022-11-04] MEDS: DOCUSATE SODIUM 100 MG CAPSULE PO SCH ×2 (15:18→21:27)
[2022-11-04] MEDS: Effexor 37.5 MG TAB PO SCH (15:18)
[2022-11-04] MEDS: GABAPENTIN 300 MG CAPSULE PO SCH ×2 (15:18→21:27)
[2022-11-04] MEDS: guaiFENesin ER 600 MG TAB PO SCH ×2 (15:18→21:27)
[2022-11-04] MEDS: CARVEDILOL 12.5 MG TABLET (COREG) PO SCH ×2 (15:19→21:28)
[2022-11-04] MEDS: ASCORBIC ACID 500 MG TABLET PO SCH (15:19)
[2022-11-04] MEDS: MULTIVITAMINS TAB 1 TABLET PO SCH (15:19)
[2022-11-04] MEDS: CALCIUM CARBONATE 500 MG/ TAB.CHEW PO SCH ×2 (15:20→21:27)
[2022-11-04] MEDS: lisinopriL 5 MG TABLET PO SCH (15:20)
[2022-11-04] MEDS: POLYETHYLENE GLYCOL 3350, 17 GM/ POWD.PACK PO SCH (15:20)
[2022-11-04] MEDS: POTASSIUM CHLORIDE 20 MEQ TAB.PRT.SR PO SCH ×2 (15:20→21:28)
[2022-11-04] MEDS: PANTOPRAZOLE SODIUM 40 MG TAB PO SCH (15:22)
[2022-11-04] MEDS: HYDROXYCHLOROQUINE SULFATE 200 MG TABLET PO SCH ×2 (15:23→21:26)
[2022-11-04] MEDS: ONDANSETRON HCL 4 MG/2 ML VIAL IVP PRN (17:20)
[2022-11-04 20:10] VITALS: BP_SYST 127
--- NOTE | 2022-11-04 20:10 | NUR ---
PM ASSESSMENT; -Patient is awake, alert, oriented X 4. Pt denies any chest pain,pain,sob,or any acute distress. Patient oriented to hospital room, call light, toileting, pain management and safety-teach back done. IV site patent, no s/s any infiltration noted. Fall precaution in place, side rails x2,Call light within reach. Cont to monitor pt.
[2022-11-04] MEDS: methIMAzole 5 MG TABLET PO SCH (21:26)
[2022-11-04] MEDS: ATORVASTATIN 20 MG TABLET PO SCH (21:27)
[2022-11-04] MEDS: FOLIC ACID 1 MG TABLET PO SCH (21:27)
[2022-11-04] MEDS: buPROPion HCL 150 MG XL TAB PO SCH (21:27)
[2022-11-04] MEDS: NACL 0.9% 1,000 ML IV SCH (21:29)
[2022-11-04] MEDS: VANCOMYCIN HCL 750 MG in NS 250 ML IV SCH (21:29)
[2022-11-04] MEDS: INSULIN LISPRO SLIDING SCALE 100 UNITS/ML, 3 ML VIAL (humaLOG) SUBCUT PRN (21:35)
[2022-11-04] MEDS: guaiFENesin 200 MG/10 ML UDC PO PRN (21:45)
[2022-11-04] MEDS: MORPHINE 2 MG/ML INJ. SYRINGE IVP PRN (23:07)
--- NOTE | 2022-11-04 23:07 | NUR ---
NOTES; PAIN MGMT -Pt is c/o left leg pain sharp/aching 10/10,gave Morphine IVP for pain mgmt. Will reassess pain level w/in 30mins. Cont to monitor pt.
[2022-11-05 01:37] VITALS: BP_SYST 131
--- NOTE | 2022-11-05 01:43 | NUR ---
NOTES; -Pt is c/o of left leg pain -12/15, informed pt that pain med is not due yet until 306 and will call md if patient wants to get it now. Pt refused me to call md for pain this time. She stated that she will wait until pain med is due to receive it. will cont to monitor pt.
--- NOTE | 2022-11-05 03:11 | NUR ---
NOTES; -Pt is asleep, easily awoke upon attending to her bed. Asked pt if she wants pain medication now because she can have it. Pt refused to receive pain medication this time. will cont to monitor pt.
[2022-11-05] MEDS: MORPHINE 2 MG/ML INJ. SYRINGE IVP PRN (04:54)
[2022-11-05] MEDS: NACL 0.9% 1,000 ML IV SCH ×2 (04:54→15:08)
[2022-11-05] MEDS: INSULIN LISPRO SLIDING SCALE 100 UNITS/ML, 3 ML VIAL (humaLOG) SUBCUT PRN ×3 (05:58→22:12)
[2022-11-05 05:59] LABS: BASOPHILS # (AUTO) 0.1 K/uL (0.0-0.2); BASOPHILS % (AUTO) 0.9 % (0.0-2.0); EOSINOPHILS # (AUTO) 0.2 K/uL (0.0-0.4); EOSINOPHILS % (AUTO) 3.1 % (0.0-4.0); HEMATOCRIT 24.4 % (36-48); HEMOGLOBIN 8.1 g/dL (12.0-16.0); LYMPHOCYTES # (AUTO) 1.2 K/uL (1.0-5.5); LYMPHOCYTES % (AUTO) 18.4 % (20.5-51.5); MEAN CORPUSCULAR HEMOGLOBIN 29 pg (27-31); MEAN CORPUSCULAR HGB CONC 33 % (32-36); MEAN CORPUSCULAR VOLUME 87 fL (79.0-98.0); MONOCYTES # (AUTO) 0.3 K/uL (0.0-1.0); MONOCYTES % (AUTO) 5.2 % (1.7-9.3); NEUTROPHILS # (AUTO) 4.6 K/uL (1.8-7.7); NEUTROPHILS % (AUTO) 72.4 % (40.0-70.0); PLATELET COUNT (AUTO) 426 K/uL (130-430); RED BLOOD CELL COUNT(AUTO) 2.82 MIL/uL (4.2-6.2); RED CELL DISTRIBUTION WIDTH 14.9 % (9.0-15.0); WHITE BLOOD COUNT (AUTO) 6.4 K/uL (4.8-10.8)
[2022-11-05] MEDS: PANTOPRAZOLE SODIUM 40 MG TAB PO SCH (06:00)
[2022-11-05 06:17] LABS: ANION GAP 7 (5-15); C-REACTIVE PROTEIN QUANT 3.8 mg/dL (0-0.5); CALCIUM 8.7 mg/dL (8.4-11.0); CHLORIDE 107 mmol/L (98-107); CREATININE 1.37 mg/dL (0.55-1.30); GLUCOSE 241 mg/dL (70-99); PHOSPHORUS 3.9 mg/dL (2.7-4.5); UREA NITROGEN, BLOOD 27 mg/dL (8-21)
--- NOTE | 2022-11-05 06:31 | NUR ---
ROUNDS; -Pt is resting in bed comfortably. NO s/s any acute distress noted. Fall precaution in place, side rails x3,bed alarmed. IV site patent, no s/s any infiltration noted. Pt's condition stable. Will endorse to next nurse to continuity of care.
[2022-11-05 06:45] LABS: ERYTHROCYTE SEDIMENTATION RATE 61 MM/HR (0-20)
[2022-11-05 09:23] VITALS: BP_SYST 138
[2022-11-05] MEDS: NEPHROVITE, (FOLIC ACID/VITAMIN B COMP W-C 1 TAB) PO SCH (09:25)
[2022-11-05] MEDS: Effexor 37.5 MG TAB PO SCH (09:25)
[2022-11-05] MEDS: ASCORBIC ACID 500 MG TABLET PO SCH (09:26)
[2022-11-05] MEDS: GABAPENTIN 300 MG CAPSULE PO SCH ×2 (09:26→21:46)
[2022-11-05] MEDS: DOCUSATE SODIUM 100 MG CAPSULE PO SCH ×2 (09:26→21:00)
[2022-11-05] MEDS: CALCIUM CARBONATE 500 MG/ TAB.CHEW PO SCH ×2 (09:26→21:46)
[2022-11-05] MEDS: guaiFENesin ER 600 MG TAB PO SCH ×2 (09:26→21:46)
[2022-11-05] MEDS: MULTIVITAMINS TAB 1 TABLET PO SCH (09:27)
[2022-11-05] MEDS: POLYETHYLENE GLYCOL 3350, 17 GM/ POWD.PACK PO SCH (09:27)
[2022-11-05] MEDS: CARVEDILOL 12.5 MG TABLET (COREG) PO SCH ×2 (09:27→21:45)
[2022-11-05] MEDS: POTASSIUM CHLORIDE 20 MEQ TAB.PRT.SR PO SCH ×2 (09:28→21:56)
[2022-11-05] MEDS: lisinopriL 5 MG TABLET PO SCH (09:39)
[2022-11-05] MEDS: LANOLIN ALCOHOL/MO/W.PET/CERES 57 GM CREAM..G. TP SCH ×2 (09:40→21:50)
[2022-11-05] MEDS: BALSAM PERU/CASTOR OIL 56.7 GM OINT...G. TP SCH (09:41)
[2022-11-05] MEDS: HYDROXYCHLOROQUINE SULFATE 200 MG TABLET PO SCH ×2 (10:44→21:47)
[2022-11-05] MEDS: LINEZOLID 300 ML IV SCH ×2 (10:45→21:42)
[2022-11-05 11:30] VITALS: BP_SYST 141
[2022-11-05] MEDS ORDERED: FUROSEMIDE 40 MG/4 ML VIAL IVP ONE (13:45)
[2022-11-05] MEDS ORDERED: SODIUM ZIRCONIUM CYCLOSILICATE 10 GM POWD.PACK PO ONE (14:00)
--- NOTE | 2022-11-05 15:02 | NUR ---
PATIENT REFUSED PT TREATMENT TODAY D/T PAIN FROM SURGERY. WILL TRY AGAIN TOMORROW.
[2022-11-05 15:04] VITALS: BP_SYST 119
[2022-11-05] MEDS: EPOETIN ALFA 10,000 UNITS/ML VIAL SUBCUT SCH (18:20)
[2022-11-05 20:14] VITALS: BP_SYST 128
--- NOTE | 2022-11-05 21:00 | NUR ---
Changed bilateral food dressing. Pt awake and oriented. NS at 70 ml/hr.
[2022-11-05] MEDS: ATORVASTATIN 20 MG TABLET PO SCH (21:46)
[2022-11-05] MEDS: methIMAzole 5 MG TABLET PO SCH (21:47)
[2022-11-05] MEDS: FOLIC ACID 1 MG TABLET PO SCH (21:49)
[2022-11-05] MEDS: buPROPion HCL 150 MG XL TAB PO SCH (22:36)
[2022-11-06] VITALS: BP_SYST 120
[2022-11-06] MEDS ORDERED: HYDROcodone/ACETAMIN 5-325 MG TAB (NORCO/ VICODIN) PO PRN (00:15)
--- NOTE | 2022-11-06 03:46 | NUR ---
Pt called for pain medication around 23:30 pm. Pt refused Tylenol ex and asked Morphine iv. Nurse called Dr Ramos and received pain medication orders. But she's been sleeping.
[2022-11-06 05:33] LABS: BASOPHILS # (AUTO) 0.1 K/uL (0.0-0.2); BASOPHILS % (AUTO) 0.9 % (0.0-2.0); EOSINOPHILS # (AUTO) 0.2 K/uL (0.0-0.4); EOSINOPHILS % (AUTO) 2.9 % (0.0-4.0); HEMATOCRIT 24.6 % (36-48); LYMPHOCYTES # (AUTO) 1.2 K/uL (1.0-5.5); LYMPHOCYTES % (AUTO) 20.1 % (20.5-51.5); MEAN CORPUSCULAR HEMOGLOBIN 28 pg (27-31); MEAN CORPUSCULAR HGB CONC 33 % (32-36); MEAN CORPUSCULAR VOLUME 87 fL (79.0-98.0); MONOCYTES # (AUTO) 0.5 K/uL (0.0-1.0); MONOCYTES % (AUTO) 7.6 % (1.7-9.3); NEUTROPHILS # (AUTO) 4.2 K/uL (1.8-7.7); NEUTROPHILS % (AUTO) 68.5 % (40.0-70.0); PLATELET COUNT (AUTO) 422 K/uL (130-430); RED BLOOD CELL COUNT(AUTO) 2.81 MIL/uL (4.2-6.2); RED CELL DISTRIBUTION WIDTH 15.3 % (9.0-15.0); WHITE BLOOD COUNT (AUTO) 6.2 K/uL (4.8-10.8)
[2022-11-06 05:54] LABS: ANION GAP 9 (5-15); C-REACTIVE PROTEIN QUANT 3.3 mg/dL (0-0.5); CALCIUM 8.5 mg/dL (8.4-11.0); CHLORIDE 107 mmol/L (98-107); CREATININE 1.52 mg/dL (0.55-1.30); GLUCOSE 211 mg/dL (70-99); UREA NITROGEN, BLOOD 30 mg/dL (8-21)
[2022-11-06] MEDS: INSULIN LISPRO SLIDING SCALE 100 UNITS/ML, 3 ML VIAL (humaLOG) SUBCUT PRN ×3 (06:48→16:54)
[2022-11-06] MEDS: PANTOPRAZOLE SODIUM 40 MG TAB PO SCH (06:49)
[2022-11-06 07:07] LABS: ERYTHROCYTE SEDIMENTATION RATE 43 MM/HR (0-20)
--- NOTE | 2022-11-06 07:30 | NUR ---
MORNING ROUNDS: PATIENT AWAKE DURING ROUNDS. IV FLUIDS RUNNING AR RIGHT ARM INTACT. BILATERAL FOOT WITH CLEAN/DRY DRESSING.INTACT. CALL LIGHT WITH IN REACH. BED LOCKED AT LOWEST POSITION.PATIENT IS CONNECTED TO PURICK.NO DISTRESS.
[2022-11-06 08:36] VITALS: BP_SYST 123
[2022-11-06] MEDS: ASCORBIC ACID 500 MG TABLET PO SCH (08:58)
[2022-11-06] MEDS: MULTIVITAMINS TAB 1 TABLET PO SCH (08:58)
[2022-11-06] MEDS: lisinopriL 5 MG TABLET PO SCH (08:59)
[2022-11-06] MEDS: guaiFENesin ER 600 MG TAB PO SCH ×2 (08:59→21:22)
[2022-11-06] MEDS: NEPHROVITE, (FOLIC ACID/VITAMIN B COMP W-C 1 TAB) PO SCH (08:59)
[2022-11-06] MEDS: POLYETHYLENE GLYCOL 3350, 17 GM/ POWD.PACK PO SCH (08:59)
[2022-11-06] MEDS: DOCUSATE SODIUM 100 MG CAPSULE PO SCH ×2 (09:00→21:23)
[2022-11-06] MEDS: GABAPENTIN 300 MG CAPSULE PO SCH ×2 (09:00→21:22)
[2022-11-06] MEDS: CALCIUM CARBONATE 500 MG/ TAB.CHEW PO SCH ×2 (09:00→21:25)
[2022-11-06] MEDS: CARVEDILOL 12.5 MG TABLET (COREG) PO SCH ×2 (09:01→21:24)
[2022-11-06] MEDS: LINEZOLID 300 ML IV SCH ×2 (09:02→21:26)
[2022-11-06] MEDS: POTASSIUM CHLORIDE 20 MEQ TAB.PRT.SR PO SCH ×2 (09:03→21:24)
[2022-11-06] MEDS: LANOLIN ALCOHOL/MO/W.PET/CERES 57 GM CREAM..G. TP SCH ×2 (09:05→22:05)
[2022-11-06] MEDS: BALSAM PERU/CASTOR OIL 56.7 GM OINT...G. TP SCH (09:07)
[2022-11-06] MEDS: Effexor 37.5 MG TAB PO SCH (09:57)
[2022-11-06] MEDS: HYDROXYCHLOROQUINE SULFATE 200 MG TABLET PO SCH ×2 (10:47→22:03)
[2022-11-06] MEDS: NACL 0.9% 1,000 ML IV SCH ×2 (10:47→21:42)
--- NOTE | 2022-11-06 11:00 | NUR ---
BLOOD SUGAR: BLOOD SUGAR TAKEN,WITH INSULIN COVERAGE GIVEN PER SLIDING SCALE.NO PROBLEM.
[2022-11-06 12:49] VITALS: BP_SYST 139
[2022-11-06] MEDS ORDERED: FUROSEMIDE 40 MG/4 ML VIAL IVP ONE ×2 (13:00→14:15)
[2022-11-06] MEDS ORDERED: FUROSEMIDE 20 MG/2 ML VIAL IVP ONE (13:00)
--- NOTE | 2022-11-06 14:39 | NUR ---
THREE ATTEMPTS WERE MADE THROUGHOUT THE DAY FOR PT PARTICIPATION. PATIENT TOLD ME TO COME BACK A LITTLE LATER THE FIRST TWO ATTEMPTS, HOWEVER REFUSED ON THE THIRD ATTEMPT. PER RN, PATIENT'S SPECIAL BOOTS WILL BE DELIVERED LATER TONIGHT. WILL TRY AGAIN TOMORROW.
--- NOTE | 2022-11-06 17:00 | NUR ---
BLOOD SUGAR: BLOOD SUGAR TAKEN,WITH INSULIN COVERAGE GIVEN PER SLIDING SCALE.
[2022-11-06 17:50] VITALS: BP_SYST 123
--- NOTE | 2022-11-06 18:21 | NUR ---
EVENING ROUNDS: PATIENT RESTING. IV FLUIDS RUNNING AT RIGHT ARM INTACT. CALL LIGHT WITH IN REACH. BED LOCKED AT LOWEST POSITION. PURICK DRAINING TO LARGE AMOUNT OF URINE.BILATERAL FOOT DRESSING DRY AND CLEAN. NOT IN ANY DISTRESS.
--- NOTE | 2022-11-06 19:25 | NUR ---
INITIAL NOTES; endorsed by day shift, S/P bilateral plantar foot debridement post op day 2. no acute distress. call light within reach.
[2022-11-06 20:45] VITALS: BP_SYST 133
--- NOTE | 2022-11-06 21:00 | NUR ---
NOTES: pt. awake, alert. bilateral foot with dressing intact. noted left leg swollen and skin red. IVF infusing via rt. forearm. on room air. on high fowlers position. denies any pain.
[2022-11-06] MEDS: FOLIC ACID 1 MG TABLET PO SCH (21:21)
[2022-11-06] MEDS: ATORVASTATIN 20 MG TABLET PO SCH (21:23)
--- NOTE | 2022-11-06 21:30 | NUR ---
NOTES: due meds given. BS checked, no sliding scale coverage. pm care done. Addendum: 11/07/22 at 0116 by Nathalia Mendez RN hamlet silva applied by JOSE.
[2022-11-06] MEDS: methIMAzole 5 MG TABLET PO SCH (22:03)
[2022-11-06] MEDS: buPROPion HCL 150 MG XL TAB PO SCH (22:03)
[2022-11-07 00:12] VITALS: BP_SYST 129
--- NOTE | 2022-11-07 02:30 | NUR ---
NOTES: pt. been sleeping. condition observed.
[2022-11-07 05:21] LABS: BASOPHILS # (AUTO) 0.1 K/uL (0.0-0.2); BASOPHILS % (AUTO) 1.2 % (0.0-2.0); EOSINOPHILS # (AUTO) 0.2 K/uL (0.0-0.4); EOSINOPHILS % (AUTO) 3.4 % (0.0-4.0); HEMOGLOBIN 8.2 g/dL (12.0-16.0); LYMPHOCYTES # (AUTO) 1.4 K/uL (1.0-5.5); LYMPHOCYTES % (AUTO) 22.8 % (20.5-51.5); MEAN CORPUSCULAR HEMOGLOBIN 29 pg (27-31); MEAN CORPUSCULAR HGB CONC 33 % (32-36); MEAN CORPUSCULAR VOLUME 87 fL (79.0-98.0); MONOCYTES # (AUTO) 0.5 K/uL (0.0-1.0); MONOCYTES % (AUTO) 8.5 % (1.7-9.3); NEUTROPHILS % (AUTO) 64.1 % (40.0-70.0); PLATELET COUNT (AUTO) 405 K/uL (130-430); RED BLOOD CELL COUNT(AUTO) 2.88 MIL/uL (4.2-6.2); RED CELL DISTRIBUTION WIDTH 15.3 % (9.0-15.0); WHITE BLOOD COUNT (AUTO) 6.3 K/uL (4.8-10.8)
[2022-11-07 06:04] LABS: ALANINE AMINOTRANSFERASE 14 U/L (12-78); ALBUMIN 2.1 g/dL (3.4-4.8); ANION GAP 8 (5-15); ASPARTATE AMINOTRANSFERASE 14 U/L (10-37); CALCIUM 8.8 mg/dL (8.4-11.0); CHLORIDE 105 mmol/L (98-107); CREATININE 1.55 mg/dL (0.55-1.30); GLUCOSE 106 mg/dL (70-99); PHOSPHORUS 3.6 mg/dL (2.7-4.5); TOTAL BILIRUBIN 0.3 mg/dL (0.0-1.0); UREA NITROGEN, BLOOD 35 mg/dL (8-21)
--- NOTE | 2022-11-07 06:47 | NUR ---
CLOSING NOTES; PT. STILL ASLEEP, AWAKENED TO CHECK BS 76. BILATERAL FOOT DRESSING INTACT. NEEDS ATTENDED, FOR FURTHER ASSISTANCE.WILL ENDORSED TO INCOMING SHIFT.
[2022-11-07 07:01] LABS: ERYTHROCYTE SEDIMENTATION RATE 69 MM/HR (0-20)
[2022-11-07] MEDS: PANTOPRAZOLE SODIUM 40 MG TAB PO SCH (07:05)
[2022-11-07 08:00] VITALS: BP_SYST 161
[2022-11-07] MEDS: MULTIVITAMINS TAB 1 TABLET PO SCH (08:31)
[2022-11-07] MEDS: GABAPENTIN 300 MG CAPSULE PO SCH ×2 (08:31→21:36)
[2022-11-07] MEDS: POTASSIUM CHLORIDE 20 MEQ TAB.PRT.SR PO SCH ×2 (08:31→21:37)
[2022-11-07] MEDS: DOCUSATE SODIUM 100 MG CAPSULE PO SCH ×2 (08:31→21:36)
[2022-11-07] MEDS: NEPHROVITE, (FOLIC ACID/VITAMIN B COMP W-C 1 TAB) PO SCH (08:32)
[2022-11-07] MEDS: lisinopriL 5 MG TABLET PO SCH (08:33)
[2022-11-07] MEDS: Effexor 37.5 MG TAB PO SCH (08:33)
[2022-11-07] MEDS: ASCORBIC ACID 500 MG TABLET PO SCH (08:34)
[2022-11-07] MEDS: CARVEDILOL 12.5 MG TABLET (COREG) PO SCH ×2 (08:34→21:44)
[2022-11-07] MEDS: POLYETHYLENE GLYCOL 3350, 17 GM/ POWD.PACK PO SCH (08:35)
[2022-11-07] MEDS: FUROSEMIDE 40 MG/4 ML VIAL IVP SCH (08:36)
[2022-11-07] MEDS: CALCIUM CARBONATE 500 MG/ TAB.CHEW PO SCH ×2 (08:43→21:37)
[2022-11-07] MEDS: guaiFENesin ER 600 MG TAB PO SCH ×2 (08:43→21:36)
[2022-11-07] MEDS: LANOLIN ALCOHOL/MO/W.PET/CERES 57 GM CREAM..G. TP SCH ×2 (08:44→21:41)
[2022-11-07] MEDS: HYDROXYCHLOROQUINE SULFATE 200 MG TABLET PO SCH ×2 (10:00→21:38)
[2022-11-07] MEDS: LINEZOLID 300 ML IV SCH ×2 (10:44→21:35)
[2022-11-07] MEDS: NACL 0.9% 1,000 ML IV SCH (10:54)
[2022-11-07] MEDS: BALSAM PERU/CASTOR OIL 56.7 GM OINT...G. TP SCH (10:54)
[2022-11-07] MEDS ORDERED: MAGNESIUM SULFATE 50 ML IV ONE (11:00)
[2022-11-07] MEDS: INSULIN LISPRO SLIDING SCALE 100 UNITS/ML, 3 ML VIAL (humaLOG) SUBCUT PRN ×2 (11:47→17:39)
[2022-11-07 12:00] VITALS: BP_SYST 152
--- NOTE | 2022-11-07 14:16 | NUR ---
PHYSICAL THERAPY CO-SIGN The Physical Therapy Progress Notes documented by [employer] have been reviewed. Reviewed/Co-Signed by: Afshin Gross Documentation Done by:AZALIA CLARK Addendum: 11/07/22 at 1416 by Afshin Gross PT Amended: Links added.
[2022-11-07 16:53] VITALS: BP_SYST 149
[2022-11-07] MEDS: EPOETIN ALFA 10,000 UNITS/ML VIAL SUBCUT SCH (17:34)
--- NOTE | 2022-11-07 19:00 | NUR ---
BILATERAL FOOT DRESSINGS CHANGER PER ORDERS. AWAITING BOOTS TO BE DELIVERED.
[2022-11-07 20:00] VITALS: BP_SYST 142
[2022-11-07] MEDS: FOLIC ACID 1 MG TABLET PO SCH (21:36)
[2022-11-07] MEDS: methIMAzole 5 MG TABLET PO SCH (21:40)
[2022-11-07] MEDS: ATORVASTATIN 20 MG TABLET PO SCH (21:42)
[2022-11-07] MEDS: guaiFENesin 200 MG/10 ML UDC PO PRN (21:52)
[2022-11-07] MEDS: buPROPion HCL 150 MG XL TAB PO SCH (21:52)
[2022-11-07] MEDS: HYDROcodone/ACETAMIN 10-325 MG TAB PO PRN (23:59)
[2022-11-08 02:43] VITALS: BP_SYST 145
--- NOTE | 2022-11-08 06:00 | NUR ---
blood [id number] sugar given
[2022-11-08] MEDS: PANTOPRAZOLE SODIUM 40 MG TAB PO SCH (06:13)
[2022-11-08 06:22] LABS: BASOPHILS # (AUTO) 0.1 K/uL (0.0-0.2); BASOPHILS % (AUTO) 1.4 % (0.0-2.0); EOSINOPHILS # (AUTO) 0.2 K/uL (0.0-0.4); EOSINOPHILS % (AUTO) 3.6 % (0.0-4.0); HEMATOCRIT 24.9 % (36-48); LYMPHOCYTES # (AUTO) 1.5 K/uL (1.0-5.5); LYMPHOCYTES % (AUTO) 31.2 % (20.5-51.5); MEAN CORPUSCULAR HEMOGLOBIN 28 pg (27-31); MEAN CORPUSCULAR HGB CONC 32 % (32-36); MEAN CORPUSCULAR VOLUME 87 fL (79.0-98.0); MONOCYTES # (AUTO) 0.4 K/uL (0.0-1.0); MONOCYTES % (AUTO) 8.9 % (1.7-9.3); NEUTROPHILS # (AUTO) 2.6 K/uL (1.8-7.7); NEUTROPHILS % (AUTO) 54.9 % (40.0-70.0); PLATELET COUNT (AUTO) 391 K/uL (130-430); RED BLOOD CELL COUNT(AUTO) 2.88 MIL/uL (4.2-6.2); RED CELL DISTRIBUTION WIDTH 15.1 % (9.0-15.0); WHITE BLOOD COUNT (AUTO) 4.7 K/uL (4.8-10.8)
--- NOTE | 2022-11-08 06:25 | NUR ---
blood sugar is 122 pt is alert orientated ingood mood
[2022-11-08 06:49] LABS: ERYTHROCYTE SEDIMENTATION RATE 61 MM/HR (0-20)
[2022-11-08 06:56] LABS: ANION GAP 7 (5-15); C-REACTIVE PROTEIN QUANT 3.7 mg/dL (0-0.5); CHLORIDE 105 mmol/L (98-107); CREATININE 1.47 mg/dL (0.55-1.30); GLUCOSE 66 mg/dL (70-99); PHOSPHORUS 4.1 mg/dL (2.7-4.5); UREA NITROGEN, BLOOD 33 mg/dL (8-21)
[2022-11-08 07:55] VITALS: BP_SYST 156
[2022-11-08] MEDS: GABAPENTIN 300 MG CAPSULE PO SCH ×2 (08:26→20:53)
[2022-11-08] MEDS: Effexor 37.5 MG TAB PO SCH (08:27)
[2022-11-08] MEDS: NEPHROVITE, (FOLIC ACID/VITAMIN B COMP W-C 1 TAB) PO SCH (08:27)
[2022-11-08] MEDS: CALCIUM CARBONATE 500 MG/ TAB.CHEW PO SCH ×3 (08:27→20:59)
[2022-11-08] MEDS: DOCUSATE SODIUM 100 MG CAPSULE PO SCH ×2 (08:28→20:49)
[2022-11-08] MEDS: ASCORBIC ACID 500 MG TABLET PO SCH (08:28)
[2022-11-08] MEDS: lisinopriL 5 MG TABLET PO SCH (08:29)
[2022-11-08] MEDS: POTASSIUM CHLORIDE 20 MEQ TAB.PRT.SR PO SCH ×2 (08:29→20:51)
[2022-11-08] MEDS: CARVEDILOL 12.5 MG TABLET (COREG) PO SCH ×2 (08:30→20:50)
[2022-11-08] MEDS: FUROSEMIDE 40 MG/4 ML VIAL IVP SCH (08:31)
[2022-11-08] MEDS: guaiFENesin ER 600 MG TAB PO SCH ×2 (08:31→20:53)
[2022-11-08] MEDS: POLYETHYLENE GLYCOL 3350, 17 GM/ POWD.PACK PO SCH ×2 (08:31→08:43)
[2022-11-08] MEDS: NACL 0.9% 1,000 ML IV SCH ×2 (08:32→15:00)
[2022-11-08] MEDS: MULTIVITAMINS TAB 1 TABLET PO SCH (08:32)
[2022-11-08] MEDS: LANOLIN ALCOHOL/MO/W.PET/CERES 57 GM CREAM..G. TP SCH ×2 (08:33→20:55)
[2022-11-08] MEDS: BALSAM PERU/CASTOR OIL 56.7 GM OINT...G. TP SCH (08:34)
[2022-11-08] MEDS: HYDROXYCHLOROQUINE SULFATE 200 MG TABLET PO SCH ×2 (09:14→20:56)
[2022-11-08] MEDS: LINEZOLID 300 ML IV SCH ×2 (09:15→20:58)
[2022-11-08] MEDS ORDERED: [UNRECOGNIZED DRUG - CODE] IV (11:46)
[2022-11-08] MEDS ORDERED: LEVO500P13 IV (11:46)
[2022-11-08] MEDS: INSULIN LISPRO SLIDING SCALE 100 UNITS/ML, 3 ML VIAL (humaLOG) SUBCUT PRN ×2 (11:56→16:39)
--- NOTE | 2022-11-08 12:06 | NUR ---
>>>PT NOTES<<< PATIENT REFUSED PHYSICAL THERAPY TODAY DUE TO TIREDNESS, WILL FOLLOW UP ON 11/10/22.
--- NOTE | 2022-11-08 12:42 | NUR ---
CASE MANAGEMENT MESSAGED ITALO AND FAXED OVER ORDER TO [facility] FOR PATIENT.
[2022-11-08 12:56] VITALS: BP_SYST 149
[2022-11-08] MEDS: MORPHINE 2 MG/ML INJ. SYRINGE IVP PRN ×2 (13:52→23:46)
[2022-11-08 16:57] VITALS: BP_SYST 150
--- NOTE | 2022-11-08 18:57 | NUR ---
Nutrition F/U Admitting Diagnosis Cellulitis Reviewed Pertinent Medical/Surgical Hx Medical Record Patient Medical History Comment: Per H&P, 72-yo female with worsening of the ulcers in the bottom of her feet bilaterally with oozing discoloration and pain brought the patient to the ER. Current diagnosis, diabetes mellitus, diabetic neuropathy, foot ulcer, wound care, surgical debridement. Per progress note (10/27/22) Dr. Degroot, surgical debridement not indicated at this time, renal insufficiency plan to have nephrology follow patient as an outpatient, possible discharge. Per RD chart review 11/01: plan for I&D/debridement Sx 11/04 (Thursday). (11/08) TARA on CKD likely 2/2 ATN in setting of sepsis, renal function has stabilized and plateaued with supportive care, hyperK resolved Subjective Information: RD met w/ pt at bedside this afternoon. Patient reports a much improved appetite and is very happy with tuna sandwiches. Previous RD noted patients food preferences (tuna sandwich every other day for lunch, and milk w/ some meals). She attested to last BM x1 yesterday, no V/C/D, however, continues to experience occasional N -- likely d/t ABX treatment. No chewing/swallowing problems or false teeth. Bedscale wt taken: 196# -- unsure of reliability as this would indicate a possible 42# wt gain within 13 days, weight changes likely due to fluid fluctuations. Current diet is adequate/appropriate to meet nutritional needs. Current Diet Order/Nutrition Support: Regular Diet x4 days & Adalberto BID x7 days Patient/Significant Other Able To Verbalize Education Provided Not Indicated Pertinent Medications: Lasix, vancomycin, zofran, morphine, insulin, SSI, folic acid, lipitor, protonix, zinc sulfate, nephrovite, miralax, MVI, VIT C, colace, tums, glipizide Pertinent Labs: 11/08: H/H 8.0 L/24.9L, BUN 33H, Create 1.47H, BG 66L, CRP 3.7H 11/07: BG 106H 11/06: BG 211H 11/05: BG 241H 11/01: H/H 7.5 L/22.8 L, BUN 27 H, CRE 1.5 H, BG 82 WNL; 10/25: HgA1c 10.4 H Height (Feet) 5 feet Height (Inches) 5.00 inches Weight (Pounds) 159 pounds -- stable since Patient Weight 72.121 kg Body Mass Index 26.46 kg/m2 [place]/Adjusted Body Weight IBW 125+/- 10%; ABW 139 lbs. for geriatric maintenance Recent Weight Change patient states some weight loss but does not know how much Weight Status Overweight Gastrointestinal Symptoms Constipation - improved Last BM 11/07/22 Food Allergies No - Per patient, NKFA Usual Diet At Home Regular Skin Integrity Comment: Herber Score: 15 Skin: wounds to L/R foot and L lower leg erythema noted 11/01 Edema: L leg noted 11/08/22 non-pitting 2+ Current % PO 75-100% x6 meal records -- good, improving likely meeting nutrient needs Estimated Energy Expenditure (kcals/day) 4687-8803 kcals/day (30-35 kcals/kg of ABW 63 kg for wounds/geriatrics) Estimated Protein Required (g/day) 63-95 gm/day (1.0-1.5 gm/kg of ABW 63 kg for wound/geriatrics) Estimated Fluid Required (l/day) 1.9-2.2 L/day (1 mL/kcal or per MD Rx) Problem/Etiology/Signs/Symptoms * Altered nutrition-related lab values r/t endocrine/renal dysfunction and current medical condition AEB H/H, BUN/CRE, and BG/HgA1c lab values. *Ongoing * Increased nutrient needs r/t wound healing AEB has diabetic foot ulcers. *Ongoing * Inadequate protein/energy intake r/t poor appetite AEB reported inadequate PO intake (intakes variable). *Resolved Expected Outcomes/Goals * PO intake to meet 80-100% of estimated nutrient need without GI complications (ongoing) * Improved/stable nutrition-related labs (ongoing) * Signs of wound healing by discharge (ongoing) Dietitian Recommendations * Recommend CCHO diet * Adalberto BID (supplement yields 180 kcal/day, 5 gm protein/day) * Continue MVIs for wound healing Monitor/Evaluation Comment PO intake, GI, skin, labs Follow Up Mod Risk: F/U in 3-5 days RM, RDN
--- NOTE | 2022-11-08 18:57 | NUR ---
Dietitian Recommendations * Recommend [facility] diet * Adalberto BID (supplement yields 180 kcal/day, 5 gm protein/day) * Continue MVIs for wound healing Monitor/Evaluation Comment PO intake, GI, skin, labs Refer to RD F/U Assessment 11/08/22 for details RM, SHAHRAMN
[2022-11-08 20:00] VITALS: BP_SYST 129
[2022-11-08] MEDS: FOLIC ACID 1 MG TABLET PO SCH (20:49)
[2022-11-08] MEDS: ATORVASTATIN 20 MG TABLET PO SCH (20:53)
[2022-11-08] MEDS: methIMAzole 5 MG TABLET PO SCH (20:54)
[2022-11-08] MEDS: buPROPion HCL 150 MG XL TAB PO SCH (20:55)
[2022-11-08] MEDS: guaiFENesin 200 MG/10 ML UDC PO PRN (20:56)
[2022-11-09 00:24] VITALS: BP_SYST 154
[2022-11-09] MEDS: NACL 0.9% 1,000 ML IV SCH ×2 (03:41→20:50)
[2022-11-09] MEDS: MORPHINE 2 MG/ML INJ. SYRINGE IVP PRN (03:53)
[2022-11-09 06:01] LABS: BASOPHILS # (AUTO) 0.1 K/uL (0.0-0.2); BASOPHILS % (AUTO) 1.1 % (0.0-2.0); EOSINOPHILS # (AUTO) 0.2 K/uL (0.0-0.4); EOSINOPHILS % (AUTO) 4.5 % (0.0-4.0); HEMATOCRIT 26.6 % (36-48); HEMOGLOBIN 8.6 g/dL (12.0-16.0); LYMPHOCYTES # (AUTO) 1.3 K/uL (1.0-5.5); LYMPHOCYTES % (AUTO) 26.9 % (20.5-51.5); MEAN CORPUSCULAR HEMOGLOBIN 28 pg (27-31); MEAN CORPUSCULAR HGB CONC 32 % (32-36); MEAN CORPUSCULAR VOLUME 86 fL (79.0-98.0); MONOCYTES # (AUTO) 0.5 K/uL (0.0-1.0); MONOCYTES % (AUTO) 9.6 % (1.7-9.3); NEUTROPHILS # (AUTO) 2.8 K/uL (1.8-7.7); NEUTROPHILS % (AUTO) 57.9 % (40.0-70.0); PLATELET COUNT (AUTO) 386 K/uL (130-430); RED BLOOD CELL COUNT(AUTO) 3.08 MIL/uL (4.2-6.2); RED CELL DISTRIBUTION WIDTH 15.2 % (9.0-15.0); WHITE BLOOD COUNT (AUTO) 4.9 K/uL (4.8-10.8)
[2022-11-09] MEDS: PANTOPRAZOLE SODIUM 40 MG TAB PO SCH (06:15)
--- NOTE | 2022-11-09 06:15 | NUR ---
BLOOD SUGAR 66 ORANGE JUICE WITH 2PACKSOFSUGAR GIVEN
[2022-11-09 06:27] LABS: ERYTHROCYTE SEDIMENTATION RATE 71 MM/HR (0-20)
--- NOTE | 2022-11-09 06:30 | NUR ---
BLOOD SUGAR 76 IS ALERT CONVERSANT ORANGE JUICE GIVEN
[2022-11-09 07:36] LABS: ANION GAP 9 (5-15); C-REACTIVE PROTEIN QUANT 3.7 mg/dL (0-0.5); CHLORIDE 104 mmol/L (98-107); CREATININE 1.42 mg/dL (0.55-1.30); GLUCOSE 69 mg/dL (70-99); PHOSPHORUS 4.4 mg/dL (2.7-4.5); UREA NITROGEN, BLOOD 28 mg/dL (8-21)
[2022-11-09 07:49] VITALS: BP_SYST 154
[2022-11-09] MEDS: DOCUSATE SODIUM 100 MG CAPSULE PO SCH ×2 (08:31→20:50)
[2022-11-09] MEDS: GABAPENTIN 300 MG CAPSULE PO SCH ×2 (08:31→20:51)
[2022-11-09] MEDS: ASCORBIC ACID 500 MG TABLET PO SCH (08:31)
[2022-11-09] MEDS: guaiFENesin ER 600 MG TAB PO SCH ×2 (08:31→20:51)
[2022-11-09] MEDS: Effexor 37.5 MG TAB PO SCH (08:31)
[2022-11-09] MEDS: CARVEDILOL 12.5 MG TABLET (COREG) PO SCH ×2 (08:32→20:53)
[2022-11-09] MEDS: lisinopriL 5 MG TABLET PO SCH (08:32)
[2022-11-09] MEDS: NEPHROVITE, (FOLIC ACID/VITAMIN B COMP W-C 1 TAB) PO SCH (08:33)
[2022-11-09] MEDS: CALCIUM CARBONATE 500 MG/ TAB.CHEW PO SCH ×2 (08:33→20:51)
[2022-11-09] MEDS: POTASSIUM CHLORIDE 20 MEQ TAB.PRT.SR PO SCH ×2 (08:33→20:52)
[2022-11-09] MEDS: MULTIVITAMINS TAB 1 TABLET PO SCH (08:33)
[2022-11-09] MEDS: FUROSEMIDE 40 MG/4 ML VIAL IVP SCH (08:34)
[2022-11-09] MEDS: POLYETHYLENE GLYCOL 3350, 17 GM/ POWD.PACK PO SCH (08:34)
[2022-11-09] MEDS: LINEZOLID 300 ML IV SCH ×2 (08:39→21:06)
[2022-11-09] MEDS: BALSAM PERU/CASTOR OIL 56.7 GM OINT...G. TP SCH (08:39)
[2022-11-09] MEDS: LANOLIN ALCOHOL/MO/W.PET/CERES 57 GM CREAM..G. TP SCH ×2 (08:39→20:57)
[2022-11-09] MEDS: HYDROXYCHLOROQUINE SULFATE 200 MG TABLET PO SCH ×2 (11:18→21:05)
[2022-11-09 12:55] VITALS: BP_SYST 131
[2022-11-09] MEDS: INSULIN LISPRO SLIDING SCALE 100 UNITS/ML, 3 ML VIAL (humaLOG) SUBCUT PRN (16:48)
[2022-11-09 16:52] VITALS: BP_SYST 138
--- NOTE | 2022-11-09 19:56 | NUR ---
RECEIVED PT LYING IN BED, NO DISTRESS NOTED, DENIES PAIN. AAOX4, O2 SAT 99% ON RA, ENCOURAGED USING INCENTIVE SPIROMETER. IV TO RT WRIST SITE CDI. SWELLING AND ERYTHEMA TO LLE. DRSGS TO B/L FEET CDI ELEVATED ONTO A PILLOW. BED IN LOW POSITION, BED ALARM ON, CALL LIGHT WITHIN REACH.
[2022-11-09 20:00] VITALS: BP_SYST 158
[2022-11-09] MEDS: FOLIC ACID 1 MG TABLET PO SCH (20:50)
[2022-11-09] MEDS: ATORVASTATIN 20 MG TABLET PO SCH (20:52)
[2022-11-09] MEDS: methIMAzole 5 MG TABLET PO SCH (20:54)
[2022-11-09] MEDS: buPROPion HCL 150 MG XL TAB PO SCH (21:04)
[2022-11-09] MEDS: guaiFENesin 200 MG/10 ML UDC PO PRN (21:04)
[2022-11-09] MEDS: HYDROcodone/ACETAMIN 10-325 MG TAB PO PRN (21:57)
[2022-11-10 00:14] VITALS: BP_SYST 154
[2022-11-10 05:12] LABS: BASOPHILS % (AUTO) 1.1 % (0.0-2.0); EOSINOPHILS # (AUTO) 0.2 K/uL (0.0-0.4); EOSINOPHILS % (AUTO) 4.6 % (0.0-4.0); HEMATOCRIT 24.3 % (36-48); LYMPHOCYTES # (AUTO) 1.4 K/uL (1.0-5.5); LYMPHOCYTES % (AUTO) 33.4 % (20.5-51.5); MEAN CORPUSCULAR HEMOGLOBIN 28 pg (27-31); MEAN CORPUSCULAR HGB CONC 33 % (32-36); MEAN CORPUSCULAR VOLUME 86 fL (79.0-98.0); MONOCYTES # (AUTO) 0.4 K/uL (0.0-1.0); MONOCYTES % (AUTO) 10.2 % (1.7-9.3); NEUTROPHILS # (AUTO) 2.1 K/uL (1.8-7.7); NEUTROPHILS % (AUTO) 50.7 % (40.0-70.0); PLATELET COUNT (AUTO) 338 K/uL (130-430); RED BLOOD CELL COUNT(AUTO) 2.83 MIL/uL (4.2-6.2); RED CELL DISTRIBUTION WIDTH 15.5 % (9.0-15.0); WHITE BLOOD COUNT (AUTO) 4.2 K/uL (4.8-10.8)
[2022-11-10] MEDS: PANTOPRAZOLE SODIUM 40 MG TAB PO SCH (06:01)
[2022-11-10 06:58] LABS: ERYTHROCYTE SEDIMENTATION RATE 65 MM/HR (0-20)
[2022-11-10 07:30] VITALS: BP_SYST 126
[2022-11-10 07:30] LABS: ALANINE AMINOTRANSFERASE 13 U/L (12-78); ANION GAP 7 (5-15); ASPARTATE AMINOTRANSFERASE 14 U/L (10-37); CALCIUM 8.7 mg/dL (8.4-11.0); CHLORIDE 104 mmol/L (98-107); CREATININE 1.61 mg/dL (0.55-1.30); GLUCOSE 96 mg/dL (70-99); PHOSPHORUS 4.5 mg/dL (2.7-4.5); TOTAL BILIRUBIN 0.2 mg/dL (0.0-1.0); UREA NITROGEN, BLOOD 32 mg/dL (8-21)
[2022-11-10] MEDS: LANOLIN ALCOHOL/MO/W.PET/CERES 57 GM CREAM..G. TP SCH ×2 (08:40→21:00)
[2022-11-10] MEDS: BALSAM PERU/CASTOR OIL 56.7 GM OINT...G. TP SCH (08:40)
[2022-11-10] MEDS: LINEZOLID 300 ML IV SCH ×2 (08:44→22:22)
[2022-11-10] MEDS: FUROSEMIDE 40 MG/4 ML VIAL IVP SCH (08:45)
[2022-11-10] MEDS: DOCUSATE SODIUM 100 MG CAPSULE PO SCH ×2 (08:46→21:01)
[2022-11-10] MEDS: GABAPENTIN 300 MG CAPSULE PO SCH ×2 (08:47→21:02)
[2022-11-10] MEDS: ASCORBIC ACID 500 MG TABLET PO SCH (08:47)
[2022-11-10] MEDS: NEPHROVITE, (FOLIC ACID/VITAMIN B COMP W-C 1 TAB) PO SCH (08:48)
[2022-11-10] MEDS: guaiFENesin ER 600 MG TAB PO SCH ×2 (08:48→21:01)
[2022-11-10] MEDS: CARVEDILOL 12.5 MG TABLET (COREG) PO SCH ×2 (08:48→21:01)
[2022-11-10] MEDS: MULTIVITAMINS TAB 1 TABLET PO SCH (08:48)
[2022-11-10] MEDS: Effexor 37.5 MG TAB PO SCH (08:49)
[2022-11-10] MEDS: POTASSIUM CHLORIDE 20 MEQ TAB.PRT.SR PO SCH ×2 (08:49→21:01)
[2022-11-10] MEDS: CALCIUM CARBONATE 500 MG/ TAB.CHEW PO SCH ×2 (08:49→21:01)
[2022-11-10] MEDS: POLYETHYLENE GLYCOL 3350, 17 GM/ POWD.PACK PO SCH (08:51)
[2022-11-10] MEDS: lisinopriL 5 MG TABLET PO SCH (09:00)
[2022-11-10] MEDS: NACL 0.9% 1,000 ML IV SCH (09:54)
[2022-11-10 11:44] VITALS: BP_SYST 127
--- NOTE | 2022-11-10 12:49 | NUR ---
PHYSICAL THERAPY CO-SIGN The Physical Therapy Progress Notes documented by Break Off Worker have been reviewed. Reviewed/Co-Signed by: Juan David Mcnamara Documentation Done by:AZALIA CLARK Addendum: 11/10/22 at 1249 by Juan David Mcnamara PT Amended: Links added.
[2022-11-10] MEDS: INSULIN LISPRO SLIDING SCALE 100 UNITS/ML, 3 ML VIAL (humaLOG) SUBCUT PRN ×3 (13:01→20:57)
--- NOTE | 2022-11-10 14:30 | NUR ---
received patient from outgoing nurse tammy, alert and oriented ableto verbalize needs, no c/o pain or discomfort at this time, will assume all care of patient
[2022-11-10] MEDS: HYDROXYCHLOROQUINE SULFATE 200 MG TABLET PO SCH ×2 (14:56→21:11)
[2022-11-10] MEDS: EPOETIN ALFA 10,000 UNITS/ML VIAL SUBCUT SCH (17:31)
[2022-11-10 18:39] VITALS: BP_SYST 152
[2022-11-10 20:00] VITALS: BP_SYST 127
[2022-11-10] MEDS ORDERED: MAGNESIUM SULFATE 1 GM in NS 100 ML IV ONE (20:15)
[2022-11-10] MEDS: buPROPion HCL 150 MG XL TAB PO SCH (21:00)
[2022-11-10] MEDS: ATORVASTATIN 20 MG TABLET PO SCH (21:00)
[2022-11-10] MEDS: FOLIC ACID 1 MG TABLET PO SCH (21:03)
[2022-11-10] MEDS: methIMAzole 5 MG TABLET PO SCH (21:08)
[2022-11-10] MEDS: guaiFENesin 200 MG/10 ML UDC PO PRN (21:33)
[2022-11-10] MEDS ORDERED: MAGNESIUM SULFATE 1 GM in D5W 100 ML IV ONE (22:00)
[2022-11-11 00:58] VITALS: BP_SYST 149
[2022-11-11] MEDS ORDERED: MAGNESIUM SULFATE/D5W 100 ML IV ONE (01:03)
[2022-11-11] MEDS: MORPHINE 2 MG/ML INJ. SYRINGE IVP PRN ×3 (01:27→16:37)
[2022-11-11] MEDS: PANTOPRAZOLE SODIUM 40 MG TAB PO SCH (06:22)
--- NOTE | 2022-11-11 07:17 | NUR ---
CLOSING NOTES PATIENT IS LYING IN BED AXO 4 WITH NO S/S OF PAIN OR DISCOMFORT. PATIENT WAS ASLEEP THROUGHOUT THE NIGHT. GAVE PATIENT MORPHINE 2MG IV AT 0127. BLOOD SUGAR CHECK THIS MORNING WAS 71 HELD THE GLUCOTROL DUE TO LOW BLOOD SUGAR. SAFETY CHECKS DONE AND CALL LIGHT WITH IN REACH.
[2022-11-11 07:35] LABS: BASOPHILS % (AUTO) 0.8 % (0.0-2.0); EOSINOPHILS # (AUTO) 0.2 K/uL (0.0-0.4); EOSINOPHILS % (AUTO) 5.1 % (0.0-4.0); HEMATOCRIT 27.8 % (36-48); HEMOGLOBIN 9.1 g/dL (12.0-16.0); LYMPHOCYTES # (AUTO) 1.1 K/uL (1.0-5.5); LYMPHOCYTES % (AUTO) 24.1 % (20.5-51.5); MEAN CORPUSCULAR HEMOGLOBIN 28 pg (27-31); MEAN CORPUSCULAR HGB CONC 33 % (32-36); MEAN CORPUSCULAR VOLUME 87 fL (79.0-98.0); MONOCYTES # (AUTO) 0.5 K/uL (0.0-1.0); NEUTROPHILS # (AUTO) 2.6 K/uL (1.8-7.7); PLATELET COUNT (AUTO) 337 K/uL (130-430); RED CELL DISTRIBUTION WIDTH 15.1 % (9.0-15.0); WHITE BLOOD COUNT (AUTO) 4.4 K/uL (4.8-10.8)
--- NOTE | 2022-11-11 07:43 | NUR ---
opening notes: patient in bed with eyes closed. responded to name. no s/s of distress. breathing is even and unlabored on ra 99%. all needs met at this time, safety checks made and call light within reach.
[2022-11-11 07:48] LABS: ALANINE AMINOTRANSFERASE 8 U/L (12-78); ALBUMIN 2.2 g/dL (3.4-4.8); ANION GAP 7 (5-15); ASPARTATE AMINOTRANSFERASE 14 U/L (10-37); CALCIUM 9.2 mg/dL (8.4-11.0); CHLORIDE 104 mmol/L (98-107); CREATININE 1.57 mg/dL (0.55-1.30); GLUCOSE 92 mg/dL (70-99); PHOSPHORUS 4.2 mg/dL (2.7-4.5); TOTAL BILIRUBIN 0.3 mg/dL (0.0-1.0); UREA NITROGEN, BLOOD 31 mg/dL (8-21)
[2022-11-11 08:00] VITALS: BP_SYST 121
[2022-11-11] MEDS: NEPHROVITE, (FOLIC ACID/VITAMIN B COMP W-C 1 TAB) PO SCH (08:13)
[2022-11-11] MEDS: GABAPENTIN 300 MG CAPSULE PO SCH (08:13)
[2022-11-11] MEDS: ASCORBIC ACID 500 MG TABLET PO SCH (08:13)
[2022-11-11] MEDS: POTASSIUM CHLORIDE 20 MEQ TAB.PRT.SR PO SCH (08:13)
[2022-11-11] MEDS: Effexor 37.5 MG TAB PO SCH (08:13)
[2022-11-11] MEDS: guaiFENesin ER 600 MG TAB PO SCH (08:13)
[2022-11-11] MEDS: MULTIVITAMINS TAB 1 TABLET PO SCH (08:14)
[2022-11-11] MEDS: CARVEDILOL 12.5 MG TABLET (COREG) PO SCH (08:14)
[2022-11-11] MEDS: CALCIUM CARBONATE 500 MG/ TAB.CHEW PO SCH (08:15)
[2022-11-11] MEDS: POLYETHYLENE GLYCOL 3350, 17 GM/ POWD.PACK PO SCH (08:15)
[2022-11-11] MEDS: DOCUSATE SODIUM 100 MG CAPSULE PO SCH (08:15)
[2022-11-11] MEDS: lisinopriL 5 MG TABLET PO SCH (08:15)
[2022-11-11] MEDS: LANOLIN ALCOHOL/MO/W.PET/CERES 57 GM CREAM..G. TP SCH (08:16)
[2022-11-11] MEDS: BALSAM PERU/CASTOR OIL 56.7 GM OINT...G. TP SCH (08:17)
[2022-11-11] MEDS: FUROSEMIDE 40 MG/4 ML VIAL IVP SCH (09:50)
[2022-11-11] MEDS: LINEZOLID 300 ML IV SCH (09:51)
[2022-11-11] MEDS: HYDROXYCHLOROQUINE SULFATE 200 MG TABLET PO SCH (10:21)
[2022-11-11 12:00] VITALS: BP_SYST 133
[2022-11-11] MEDS: INSULIN LISPRO SLIDING SCALE 100 UNITS/ML, 3 ML VIAL (humaLOG) SUBCUT PRN ×2 (13:08→17:29)
--- NOTE | 2022-11-11 13:25 | NUR ---
WOUND RE-EVALUATION: Late note for 11/11/2022 at 1325 secondary to patient care. Patient received in a Earnest Bed with an Isoflex IBETH mattress, awake, alert, and oriented. Patient is able to turn independently. Herber Score is a 16. Past Medical History: Diabetes Mellitus, Arthritis, Fibromyalgia, Lupus, Constipation, Hyperlipidemia, Hypertension. Recent Labs: WBC 4.4, RBC 3.20, hemoglobin 9.1, hematocrit 27.8, ESR 65, BUN 31, creatinine 1.57, glucose 92, C-reactive protein 5.0, albumin 2.2. Microbiology: Blood culture results x2 negative. Foot wound culture results positive for Beta-Hemolytic Streptococcus group B, and Pseudomonas aeruginosa (10/24/22). Second wound culture results negative (11/04/22). Intrinsic factors that delay wound healing: Diabetes Mellitus, Hyperglycemia. Extrinsic factors that delay wound healing: Decreased mobility. Wound Assessment: 1. Right Plantar Foot, near and posterior to First and Second Metatarsal Heads: Diabetic/Neuropathic Ulcer, present on admission. Wound bed has 80% red tissue, 20% yellow tissue. No odor, scant red drainage. Periwound intact, with pink scar tissue. Wound measures 2.4 cm x 2.6 cm, superficial depth. Recommend: Cleanse wound with normal saline. Apply moisture barrier cream to periwound. Apply Venelex ointment to wound bed. Cover with foam dressing. Perform wound care daily, and as needed for dressing soiling or dislodgment. 2. Right Plantar Foot near Third and Fourth Metatarsal Heads: Diabetic/Neuropathic Ulcer, present on admission. Wound bed has 90% yellow eschar, 10% black eschar. No odor, no drainage. Periwound intact. Dry, stable. Wound measures 2.7 cm x 1.7 cm. Recommend: Offerle site with betadine. Allow Betadine to air dry. Cover with foam dressing. Perform wound care daily, and as needed for dressing soiling or dislodgment. 3. Right lateral foot near fifth metatarsal head: Diabetic/Neuropathic Ulcer, present on admission. Wound site has 100% light pink scar tissue. No odor, no drainage. Periwound intact. Eschar appears to have fallen off versus debrided. Recommend: Cover site with foam dressing for protection. Perform site care daily. 4. Left Plantar Foot near Third Metatarsal Head: Diabetic/Neuropathic Ulcer, present on admission. Wound bed has 10% yellow slough, 90% pink tissue. No odor, no drainage. Periwound intact, with pink scar tissue. Wound measures 1.1 cm x 1.3 cm x 0.1 cm. Recommend: Cleanse wound with normal saline. Apply moisture barrier cream to periwound. Apply Venelex ointment to wound bed. Cover with foam dressing. Perform wound care daily, and as needed for dressing soiling or dislodgment. Also recommend: Encourage and assist patient as needed with repositioning side to side all every 2 hours with pillow support and off-load pressure areas with pillows for pressure re-distribution. Offload, elevate and float bilateral heels with pillows. Perform skin care and monitor skin integrity Q shift. Use moisture barrier cream on buttocks and other moisture susceptible areas QID and as needed for soiling. Maintain patient on low air loss therapy.
--- NOTE | 2022-11-11 13:40 | NUR ---
ASSUMED CARE: ASSUMED CARE FROM YURY JAVIER. PATIENT RESTING DURING ROUNDS. NO DISTRESS.
--- NOTE | 2022-11-11 15:29 | NUR ---
YIFANK SON ORALIA CALLED THE UNIT. I NOTIFY HIM OF HIS MOTHER'S TRANSFER TONIGHT AT [facility]
--- NOTE | 2022-11-11 15:33 | NUR ---
PHYSICAL THERAPY CO-SIGN The Physical Therapy Progress Notes documented by Drop Hammer Mechanic have been reviewed. Reviewed/Co-Signed by: Afshin Gross Documentation Done by:AZALIA CLARK Addendum: 11/11/22 at 1533 by Afshin Gross PT Amended: Links added.
[2022-11-11 16:00] VITALS: BP_SYST 130
--- NOTE | 2022-11-11 16:52 | NUR ---
CALLED HCP: PATIENT SAID ,NO ONE TALK TO HER REGARDING HER TRANSFER.CALLED ANDREINA FROM [facility] AND TALK TO THE PATIENT THRU PHONE REGARDING HER TRANSFER TO [facility].
--- NOTE | 2022-11-11 17:09 | NUR ---
VERIFIED ORDERS WITH HOSPITALIST: OKAY TO CONTINUE IV ZYVOX OR PO ,SNF TO DECIDE TO CHANGE TO ORAL ANTIBIOTIC PER DR ZAYAS.
[2022-11-11 17:13] VITALS: BP_SYST 130
--- NOTE | 2022-11-11 18:06 | NUR ---
REPORT: REPORT GIVEN TO COLETTE GONSALEZ FROM [facility].
--- NOTE | 2022-11-11 19:35 | NUR ---
DISCHARGE PATIENT HAS BEEN DISCHARGED BY [facility] EMT TO [facility]. REMOVED PATIENT'S IV AND CUT OFF ID BANDS. PATIENTS BELONGING ARE WITH PATIENT. VITAL SIGNS WERE STABLE. HAND OFF PACKET TO EMT AND FACILITY IS AWARE PATIENT IS EN ROUTE.
== END 2022-11-11 19:35 | disposition home health service (06) | DRG 853 ==
LOC: SED 22:47 → SMU 10-24 01:11
PROVIDERS: ADMIT Specialist; ATTEND Specialist
PROC: 02HV33Z Insertion of Infusion Device into Superior Vena Cava, Percutaneous Approach (ICD-10-PCS; 2022-10-28)
PROC: B548ZZA Ultrasonography of Superior Vena Cava, Guidance (ICD-10-PCS; 2022-10-28)
PROC: 30233N1 Transfusion of Nonautologous Red Blood Cells into Peripheral Vein, Percutaneous Approach (ICD-10-PCS; 2022-10-29)
PROC: 0JBQ0ZZ Excision of Right Foot Subcutaneous Tissue and Fascia, Open Approach (ICD-10-PCS; principal; 2022-11-04 12:25)
DX: A41.9 Sepsis, unspecified organism (principal); E43 Unspecified severe protein-calorie malnutrition; E87.1 Hypo-osmolality and hyponatremia; L03.115 Cellulitis of right lower limb; L03.116 Cellulitis of left lower limb; M62.82 Rhabdomyolysis; N17.9 Acute kidney failure, unspecified; E11.621 Type 2 diabetes mellitus with foot ulcer; E78.5 Hyperlipidemia, unspecified; D64.9 Anemia, unspecified; D72.819 Decreased white blood cell count, unspecified; D75.839 Thrombocytosis, unspecified; E11.610 Type 2 diabetes mellitus with diabetic neuropathic arthropathy; E83.42 Hypomagnesemia; E88.09 Other disorders of plasma-protein metabolism, not elsewhere classified; E11.65 Type 2 diabetes mellitus with hyperglycemia; B96.5 Pseudomonas (aeruginosa) (mallei) (pseudomallei) as the cause of diseases classified elsewhere; B96.4 Proteus (mirabilis) (morganii) as the cause of diseases classified elsewhere; L85.3 Xerosis cutis; I12.9 Hypertensive chronic kidney disease with stage 1 through stage 4 chronic kidney disease, or unspecified chronic kidney disease; E11.22 Type 2 diabetes mellitus with diabetic chronic kidney disease; N18.32 Chronic kidney disease, stage 3b; S91.302A Unspecified open wound, left foot, initial encounter; X58.XXXA Exposure to other specified factors, initial encounter; S91.301A Unspecified open wound, right foot, initial encounter; L97.529 Non-pressure chronic ulcer of other part of left foot with unspecified severity; M79.7 Fibromyalgia; Z88.2 Allergy status to sulfonamides; Z88.8 Allergy status to other drugs, medicaments and biological substances; Z79.899 Other long term (current) drug therapy; Z95.0 Presence of cardiac pacemaker; Z79.4 Long term (current) use of insulin; Y93.89 Activity, other specified; Y92.89 Other specified places as the place of occurrence of the external cause; Y99.8 Other external cause status; Z68.26 Body mass index [BMI] 26.0-26.9, adult
CPT/HCPCS: 36415; 71045; 73700-TC; 76376; 80048; 80053; 80202; 81000; 82009; 82043; 82550; 82553; 82570; 82575; 82962; 83010; 83037; 83540; 83550; 83605; 83735; 83935; 84100; 84302; 85025; 85651-TC; 86140; 86162; 86256; 86870; 86886; 86900; 86901; 86920; 87040; 87070; 87070-TC; 87075-TC; 87081; 87086; 88304; 93005; 93923; 93971; 96365; 97110-GO; 97110-GP; 97112-GP; 97163-GP; 97530-GO; 97530-GP; 97535-GO; 99285; J0885; J1940; J1956; J2020; J2270; J2405; J2543; J2704; J3475; J7030; J7050; J7060; P9021; P9046

== ENCOUNTER 2023-01-12 18:31 | Emergency (ER) | payer OTHER ==
[~2023-01-12] VITALS: Ht 162.6 cm; Wt 75.3 kg
[~2023-01-12 18:31] MED LIST changes: +ATOR40TA68 PO; +BUPR-48 PO; -CARV6.2554 PO; -CEFA1SYR4 IV; +CHOL200075 PO; +COR12.5 PO; -FER300L PO; +FERR-69 PO; -FURO-149 PO; +FURO40TA5 PO; +INSU100I68 SUBCUT; +LEVO500P13 IV; -LIP40 PO; +METH-373 PO; +METO5TAB7 PO; +NYST15PO4 TP; -PANT20TA2 PO; +PANT40TA45 PO; +PRO40 PO; -VENL150C4 PO; +VENL150C53 PO; +VENL75CA56 PO; -VITD2000 PO; -ZINC100T2 PO; +ZINC220T3 PO; +[UNRECOGNIZED DRUG - CODE] IV
[2023-01-12 18:40] VITALS: BP_SYST 132; PULSE 80; RESP 18; TEMP 98.3; O2SAT 100
[2023-01-12 20:13] LABS: BASOPHILS # (AUTO) 0.1 K/uL (0.0-0.2); BASOPHILS % (AUTO) 0.7 % (0.0-2.0); EOSINOPHILS # (AUTO) 0.3 K/uL (0.0-0.4); EOSINOPHILS % (AUTO) 2.2 % (0.0-4.0); HEMATOCRIT 25.7 % (36-48); HEMOGLOBIN 8.5 g/dL (12.0-16.0); LYMPHOCYTES # (AUTO) 1.3 K/uL (1.0-5.5); LYMPHOCYTES % (AUTO) 11.6 % (20.5-51.5); MEAN CORPUSCULAR HEMOGLOBIN 28 pg (27-31); MEAN CORPUSCULAR HGB CONC 33 % (32-36); MEAN CORPUSCULAR VOLUME 85 fL (79.0-98.0); MONOCYTES # (AUTO) 1.1 K/uL (0.0-1.0); MONOCYTES % (AUTO) 9.6 % (1.7-9.3); NEUTROPHILS # (AUTO) 8.7 K/uL (1.8-7.7); NEUTROPHILS % (AUTO) 75.9 % (40.0-70.0); PLATELET COUNT (AUTO) 387 K/uL (130-430); RED BLOOD CELL COUNT(AUTO) 3.02 MIL/uL (4.2-6.2); RED CELL DISTRIBUTION WIDTH 17.1 % (9.0-15.0); WHITE BLOOD COUNT (AUTO) 11.4 K/uL (4.8-10.8)
[2023-01-12 21:12] LABS: INR 1.1 (0.8-1.2); PROTHROMBIN TIME 11.4 SECS (9.5-12.5)
[2023-01-12 21:15] LABS: ALANINE AMINOTRANSFERASE 23 U/L (12-78); ALBUMIN 2.9 g/dL (3.4-4.8); ANION GAP 8 (5-15); ASPARTATE AMINOTRANSFERASE 33 U/L (10-37); CALCIUM 9.6 mg/dL (8.4-11.0); CHLORIDE 95 mmol/L (98-107); CREATININE 2.62 mg/dL (0.55-1.30); GLUCOSE 131 mg/dL (74-106); TOTAL BILIRUBIN 0.3 mg/dL (0.0-1.0); UREA NITROGEN, BLOOD 95 mg/dL (8-21)
[2023-01-12] MEDS ORDERED: CLIN-22 PO (22:14)
[2023-01-12 22:45] LABS: BILIRUBIN,URINE NEGATIVE (NEGATIVE); COLOR,URINE YELLOW (YELLOW); GLUCOSE,URINE NEGATIVE (NEGATIVE); KETONES,URINE NEGATIVE (NEGATIVE); LEUKOCYTE ESTERASE ,URINE 2+ (NEGATIVE); NITRITE, URINE POSITIVE (NEGATIVE); PROTEIN URINE TRACE (NEGATIVE); UROBILINOGEN,URINE 0.2 (0.2-1.0)
[2023-01-12 23:03] LABS: BLOOD, URINE TRACE (NEGATIVE)
[2023-01-12 23:05] LABS: CLARITY/URINE HAZY (CLEAR)
[2023-01-12 23:41] LABS: BACTERIA,URINE MANY /HPF (None Seen); RBC,URINE 0-3 /HPF (0-3); WBC,URINE 20-50 /HPF (0-3)
[2023-01-12 23:42] LABS: MUCUS,URINE None Seen /LPF (None Seen)
[2023-01-13 00:44] VITALS: BP_SYST 130; PULSE 96; RESP 16; TEMP 98.8; O2SAT 97
== END 2023-01-13 00:48 ==
LOC: SED 18:31
DX: D64.9 Anemia, unspecified (principal); E11.621 Type 2 diabetes mellitus with foot ulcer; I12.9 Hypertensive chronic kidney disease with stage 1 through stage 4 chronic kidney disease, or unspecified chronic kidney disease; N18.9 Chronic kidney disease, unspecified; E11.9 Type 2 diabetes mellitus without complications; Z88.2 Allergy status to sulfonamides; Z79.4 Long term (current) use of insulin; Z79.899 Other long term (current) drug therapy
CPT/HCPCS: 36415; 80053; 81000; 82962; 83605; 85025; 85610-TC; 85730-TC; 87086; 93971; 99284

== ENCOUNTER 2023-01-25 18:52 | Emergency (ER) | payer OTHER ==
[~2023-01-25] VITALS: Ht 162.6 cm; Wt 74.8 kg
[~2023-01-25 18:52] MED LIST changes: +CLIN-22 PO
[2023-01-25 19:00] VITALS: BP_SYST 108; PULSE 89; RESP 19; TEMP 98; O2SAT 100
[2023-01-25 21:59] VITALS: BP_SYST 110; PULSE 85; RESP 18; TEMP 98; O2SAT 100
== END 2023-01-25 21:59 | disposition home or self-care (01) ==
LOC: SED 18:52
DX: E11.621 Type 2 diabetes mellitus with foot ulcer (principal); L97.529 Non-pressure chronic ulcer of other part of left foot with unspecified severity; I10 Essential (primary) hypertension; Z88.2 Allergy status to sulfonamides; Z79.4 Long term (current) use of insulin; Z79.899 Other long term (current) drug therapy
CPT/HCPCS: 99283

== ENCOUNTER 2023-01-27 12:00 | Emergency (ER) | payer OTHER ==
[~2023-01-27] VITALS: Ht 162.6 cm; Wt 70.3 kg
[2023-01-27 12:06] VITALS: BP_SYST 132; PULSE 78; RESP 20; TEMP 97.6; O2SAT 100
[2023-01-27 12:45] LABS: BASOPHILS # (AUTO) 0.1 K/uL (0.0-0.2); BASOPHILS % (AUTO) 1.1 % (0.0-2.0); EOSINOPHILS # (AUTO) 0.2 K/uL (0.0-0.4); EOSINOPHILS % (AUTO) 3.6 % (0.0-4.0); HEMATOCRIT 25.9 % (36-48); HEMOGLOBIN 8.4 g/dL (12.0-16.0); LYMPHOCYTES # (AUTO) 1.1 K/uL (1.0-5.5); MEAN CORPUSCULAR HEMOGLOBIN 28 pg (27-31); MEAN CORPUSCULAR HGB CONC 33 % (32-36); MEAN CORPUSCULAR VOLUME 87 fL (79.0-98.0); MONOCYTES # (AUTO) 0.7 K/uL (0.0-1.0); NEUTROPHILS # (AUTO) 3.5 K/uL (1.8-7.7); NEUTROPHILS % (AUTO) 63.3 % (40.0-70.0); PLATELET COUNT (AUTO) 415 K/uL (130-430); RED BLOOD CELL COUNT(AUTO) 2.97 MIL/uL (4.2-6.2); RED CELL DISTRIBUTION WIDTH 16.1 % (9.0-15.0); WHITE BLOOD COUNT (AUTO) 5.5 K/uL (4.8-10.8)
[2023-01-27 12:53] LABS: ACETONE, SERUM NEGATIVE (NEGATIVE)
[2023-01-27 12:55] LABS: ANION GAP 11 (5-15); CALCIUM 8.9 mg/dL (8.4-11.0); CARBON DIOXIDE 27 mmol/L (23-29); CHLORIDE 97 mmol/L (98-107); CREATININE 2.14 mg/dL (0.55-1.30); GLUCOSE 331 mg/dL (74-106); POTASSIUM 3.3 mmol/L (3.5-5.1); SODIUM SERUM 135 mmol/L (136-145); UREA NITROGEN, BLOOD 64 mg/dL (8-21)
[2023-01-27 13:09] LABS: ALANINE AMINOTRANSFERASE 12 U/L (12-78); ALBUMIN 2.7 g/dL (3.4-4.8); ASPARTATE AMINOTRANSFERASE 15 U/L (10-37); TOTAL BILIRUBIN 0.3 mg/dL (0.0-1.0); TOTAL PROTEIN, SERUM 8.1 g/dL (6.4-8.3)
[2023-01-27] MEDS ORDERED: NACL 0.9% 1,000 ML IV ONE (13:45)
[2023-01-27] MEDS ORDERED: INSULIN REGULAR, HUMAN 10 UNITS/0.1 ML, 3 ML VIAL IVP ONE (13:45)
[2023-01-27] MEDS ORDERED: ACETAMINOPHEN 500 MG TABLET PO ONE (17:00)
[2023-01-27 21:34] VITALS: BP_SYST 136; PULSE 75; RESP 16; TEMP 98.3; O2SAT 99
== END 2023-01-27 21:34 | disposition home or self-care (01) ==
LOC: SED 12:00
DX: N28.9 Disorder of kidney and ureter, unspecified (principal); E11.65 Type 2 diabetes mellitus with hyperglycemia; I10 Essential (primary) hypertension; E78.5 Hyperlipidemia, unspecified; Z88.2 Allergy status to sulfonamides; Z79.4 Long term (current) use of insulin; Z79.899 Other long term (current) drug therapy
CPT/HCPCS: 99284; 96360; 70450; 80053; 82009; 85025; 36415; 76376; 83605; J7030

== ENCOUNTER 2023-02-06 08:40 | Emergency (ER) | payer OTHER ==
[~2023-02-06] VITALS: Ht 162.6 cm; Wt 70.3 kg
[2023-02-06 09:07] VITALS: BP_SYST 140; PULSE 76; RESP 16; TEMP 97.9; O2SAT 100
[2023-02-06 09:25] LABS: BASOPHILS # (AUTO) 0.1 K/uL (0.0-0.2); BASOPHILS % (AUTO) 0.8 % (0.0-2.0); EOSINOPHILS # (AUTO) 0.3 K/uL (0.0-0.4); EOSINOPHILS % (AUTO) 3.4 % (0.0-4.0); HEMATOCRIT 24.5 % (36-48); HEMOGLOBIN 7.9 g/dL (12.0-16.0); LYMPHOCYTES # (AUTO) 1.2 K/uL (1.0-5.5); MEAN CORPUSCULAR HEMOGLOBIN 28 pg (27-31); MEAN CORPUSCULAR HGB CONC 32 % (32-36); MEAN CORPUSCULAR VOLUME 88 fL (79.0-98.0); MONOCYTES # (AUTO) 0.9 K/uL (0.0-1.0); MONOCYTES % (AUTO) 11.7 % (1.7-9.3); NEUTROPHILS # (AUTO) 5.2 K/uL (1.8-7.7); NEUTROPHILS % (AUTO) 68.1 % (40.0-70.0); PLATELET COUNT (AUTO) 336 K/uL (130-430); RED CELL DISTRIBUTION WIDTH 16.3 % (9.0-15.0); WHITE BLOOD COUNT (AUTO) 7.6 K/uL (4.8-10.8)
[2023-02-06 09:52] LABS: ALANINE AMINOTRANSFERASE 15 U/L (12-78); ALBUMIN 2.9 g/dL (3.4-4.8); AMYLASE 63 U/L (0-100); ANION GAP 8 (5-15); ASPARTATE AMINOTRANSFERASE 15 U/L (10-37); CALCIUM 9.1 mg/dL (8.4-11.0); CARBON DIOXIDE 28 mmol/L (23-29); CHLORIDE 93 mmol/L (98-107); CREATININE 2.15 mg/dL (0.55-1.30); LIPASE 277 U/L (73-393); POTASSIUM 4.2 mmol/L (3.5-5.1); SODIUM SERUM 129 mmol/L (136-145); TOTAL BILIRUBIN 0.2 mg/dL (0.0-1.0); TOTAL PROTEIN, SERUM 8.3 g/dL (6.4-8.3); UREA NITROGEN, BLOOD 75 mg/dL (8-21)
[2023-02-06 10:03] LABS: GLUCOSE 446 mg/dL (74-106)
[2023-02-06 10:34] LABS: ACETONE, SERUM NEGATIVE (NEGATIVE)
[2023-02-06] MEDS ORDERED: INSULIN REGULAR, HUMAN 10 UNITS/0.1 ML, 3 ML VIAL SUBCUT ONE (11:00)
[2023-02-06 14:39] VITALS: BP_SYST 128; PULSE 80; RESP 17; TEMP 97.2; O2SAT 100
== END 2023-02-06 14:37 ==
LOC: SED 08:40
DX: E11.65 Type 2 diabetes mellitus with hyperglycemia (principal); I10 Essential (primary) hypertension; E78.5 Hyperlipidemia, unspecified; Z88.1 Allergy status to other antibiotic agents; Z88.2 Allergy status to sulfonamides; Z79.899 Other long term (current) drug therapy
CPT/HCPCS: 99283; 80053; 82009; 82150; 82962; 83690; 85025; 36415; 96372; 83605; J1815

== ENCOUNTER 2023-03-20 12:37 | Outpatient (CLI) | payer OTHER ==
[~2023-03-20 12:37] MED LIST changes: -CHOL200075 PO; -GLIP10TA11 PO; -PANT40TA45 PO; -POTA-197 PO; -TAPAZOLE PO
== END 2023-03-20 18:52 | disposition home or self-care (01) ==
LOC: SMA 12:37
PROVIDERS: ATTEND Family Medicine
DX: Z12.31 Encounter for screening mammogram for malignant neoplasm of breast (principal)
CPT/HCPCS: 77067

== ENCOUNTER 2023-04-03 09:07 | Inpatient (IN) | payer OTHER ==
[~2023-04-03] VITALS: Ht 162.6 cm; Wt 74.8 kg
[2023-04-03 09:16] VITALS: BP_SYST 130; PULSE 82; RESP 18; TEMP 98.3; O2SAT 98
[2023-04-03 09:42] LABS: BASOPHILS # (AUTO) 0.1 K/uL (0.0-0.2); BASOPHILS % (AUTO) 0.4 % (0.0-2.0); EOSINOPHILS # (AUTO) 0.2 K/uL (0.0-0.4); EOSINOPHILS % (AUTO) 1.5 % (0.0-4.0); HEMATOCRIT 23.3 % (36-48); HEMOGLOBIN 7.3 g/dL (12.0-16.0); LYMPHOCYTES # (AUTO) 0.7 K/uL (1.0-5.5); LYMPHOCYTES % (AUTO) 4.8 % (20.5-51.5); MEAN CORPUSCULAR HEMOGLOBIN 28 pg (27-31); MEAN CORPUSCULAR HGB CONC 32 % (32-36); MEAN CORPUSCULAR VOLUME 87 fL (79.0-98.0); MONOCYTES # (AUTO) 1.2 K/uL (0.0-1.0); MONOCYTES % (AUTO) 8.7 % (1.7-9.3); NEUTROPHILS # (AUTO) 11.8 K/uL (1.8-7.7); NEUTROPHILS % (AUTO) 84.6 % (40.0-70.0); PLATELET COUNT (AUTO) 356 K/uL (130-430); RED BLOOD CELL COUNT(AUTO) 2.67 MIL/uL (4.2-6.2)
[2023-04-03] MEDS ORDERED: VANCOMYCIN HCL 1.25 GM/NS 250 ML IV ONE (10:00)
[2023-04-03] MEDS ORDERED: PIPERACILLIN/TAZO 3.375 GM in NS 50 ML IV ONE ×2 (10:00→12:15)
[2023-04-03 10:02] LABS: ANION GAP 12 (5-15); CALCIUM 9.4 mg/dL (8.4-11.0); CARBON DIOXIDE 24 mmol/L (23-29); CHLORIDE 93 mmol/L (98-107); CREATININE 2.66 mg/dL (0.55-1.30); GLUCOSE 230 mg/dL (74-106); POTASSIUM 3.3 mmol/L (3.5-5.1); SODIUM SERUM 129 mmol/L (136-145); UREA NITROGEN, BLOOD 75 mg/dL (8-21)
[2023-04-03 10:11] LABS: ERYTHROCYTE SEDIMENTATION RATE 28 MM/HR (0-20)
[2023-04-03] MEDS ORDERED: NACL 0.9% 1,000 ML IV ONE (10:15)
[2023-04-03] MEDS ORDERED: SENNOSIDES 8.6 MG TABLET PO PRN (11:45)
[2023-04-03 12:52] LABS: BILIRUBIN,URINE NEGATIVE (NEGATIVE); BLOOD, URINE NEGATIVE (NEGATIVE); CLARITY/URINE SL CLOUDY (CLEAR); COLOR,URINE YELLOW (YELLOW); GLUCOSE,URINE NEGATIVE (NEGATIVE); KETONES,URINE TRACE (NEGATIVE); LEUKOCYTE ESTERASE ,URINE 1+ (NEGATIVE); NITRITE, URINE NEGATIVE (NEGATIVE); PH,URINE 5.5 (5.0-8.0); PROTEIN URINE NEGATIVE (NEGATIVE); UROBILINOGEN,URINE 0.2 (0.2-1.0)
[2023-04-03] MEDS ORDERED: PIPERACILLIN/TAZOBACTAM 3.375 GM/VIAL (ZOSYN) IV ONE (13:12)
[2023-04-03 13:41] LABS: BACTERIA,URINE MANY /HPF (None Seen); RBC,URINE 0-3 /HPF (0-3)
[2023-04-03 16:00] VITALS: BP_SYST 132; PULSE 89; RESP 20; TEMP 98.1; O2SAT 91
[2023-04-03] MEDS ORDERED: MENTHOL/ZINC OXIDE 113 GM OINT. TP PRN (16:15)
[2023-04-03] MEDS: CLINDAMYCIN HCL 150 MG CAPSULE PO SCH ×2 (16:47→21:28)
[2023-04-03] MEDS: ACETAMINOPHEN 500 MG TABLET PO PRN (18:10)
[2023-04-03] MEDS: PIPERACILLIN/TAZO 2.25G/DEX-IS 50 ML IV SCH (18:39)
[2023-04-03 19:00] VITALS: BP_SYST 106; PULSE 85; RESP 20; TEMP 98.3; O2SAT 90
[2023-04-03] MEDS ORDERED: LINEZOLID 600 MG/300 ML PIGGYBACK IV SCH (21:00)
[2023-04-03] MEDS ORDERED: PIPERACILLIN/TAZO 4.5GM/DEX-IS 100 ML IV SCH (21:00)
[2023-04-03] MEDS ORDERED: NYSTATIN 15 GM TOPICAL POWDER TP SCH (21:00)
[2023-04-03] MEDS ORDERED: CALCIUM CARBONATE 500 MG/ TAB.CHEW PO PRN (21:00)
[2023-04-03] MEDS: DOCUSATE SODIUM 100 MG CAPSULE PO SCH (21:27)
[2023-04-03] MEDS: CARVEDILOL 12.5 MG TABLET (COREG) PO SCH (21:27)
[2023-04-03] MEDS: FUROSEMIDE 40 MG TABLET PO SCH (21:28)
[2023-04-03] MEDS: HYDROXYCHLOROQUINE SULFATE 200 MG TABLET PO SCH (21:28)
[2023-04-04] VITALS: BP_SYST 109; PULSE 71; RESP 18; TEMP 98.6; O2SAT 99
[2023-04-04] MEDS: PIPERACILLIN/TAZO 2.25G/DEX-IS 50 ML IV SCH ×4 (00:11→17:58)
[2023-04-04 05:08] LABS: BASOPHILS % (AUTO) 0.3 % (0.0-2.0); EOSINOPHILS # (AUTO) 0.3 K/uL (0.0-0.4); EOSINOPHILS % (AUTO) 2.4 % (0.0-4.0); HEMATOCRIT 22.2 % (36-48); HEMOGLOBIN 7.1 g/dL (12.0-16.0); LYMPHOCYTES # (AUTO) 0.3 K/uL (1.0-5.5); LYMPHOCYTES % (AUTO) 2.4 % (20.5-51.5); MEAN CORPUSCULAR HEMOGLOBIN 28 pg (27-31); MEAN CORPUSCULAR HGB CONC 32 % (32-36); MEAN CORPUSCULAR VOLUME 86 fL (79.0-98.0); MONOCYTES # (AUTO) 0.5 K/uL (0.0-1.0); MONOCYTES % (AUTO) 4.5 % (1.7-9.3); NEUTROPHILS # (AUTO) 10.5 K/uL (1.8-7.7); NEUTROPHILS % (AUTO) 90.4 % (40.0-70.0); PLATELET COUNT (AUTO) 316 K/uL (130-430); RED BLOOD CELL COUNT(AUTO) 2.57 MIL/uL (4.2-6.2); RED CELL DISTRIBUTION WIDTH 15.1 % (9.0-15.0); WHITE BLOOD COUNT (AUTO) 11.6 K/uL (4.8-10.8)
[2023-04-04 05:20] LABS: ANION GAP 10 (5-15); CALCIUM 9.1 mg/dL (8.4-11.0); CARBON DIOXIDE 25 mmol/L (23-29); CHLORIDE 94 mmol/L (98-107); CREATININE 2.49 mg/dL (0.55-1.30); GLUCOSE 241 mg/dL (74-106); POTASSIUM 3.1 mmol/L (3.5-5.1); SODIUM SERUM 129 mmol/L (136-145); UREA NITROGEN, BLOOD 75 mg/dL (8-21); VANCOMYCIN,RANDOM 15.6 ug/mL (20.0-30.0)
[2023-04-04] MEDS ORDERED: POTASSIUM CHLORIDE 40 MEQ, LIDOCAINE JECT 2% PF 100 MG 50 MG in NS 250 ML IV ONE (06:15)
[2023-04-04] MEDS ORDERED: POTASSIUM CHLORIDE 20 MEQ TAB.PRT.SR PO ONE ×3 (06:15→17:30)
[2023-04-04] MEDS: ACETAMINOPHEN 500 MG TABLET PO PRN ×2 (06:35→18:05)
[2023-04-04 07:54] VITALS: BP_SYST 87; PULSE 61; RESP 20; TEMP 98.1; O2SAT 96
[2023-04-04 07:56] VITALS: O2SAT 98
[2023-04-04] MEDS: ATORVASTATIN 20 MG TABLET PO SCH (08:53)
[2023-04-04] MEDS: Effexor XR 37.5 MG PO SCH (08:53)
[2023-04-04] MEDS: CARVEDILOL 12.5 MG TABLET (COREG) PO SCH (08:56)
[2023-04-04] MEDS: PANTOPRAZOLE SODIUM 40 MG TAB PO SCH (08:57)
[2023-04-04] MEDS: FUROSEMIDE 40 MG TABLET PO SCH (08:58)
[2023-04-04] MEDS: MULTIVITAMINS TAB 1 TABLET PO SCH (08:59)
[2023-04-04] MEDS: HYDROXYCHLOROQUINE SULFATE 200 MG TABLET PO SCH ×2 (08:59→22:41)
[2023-04-04] MEDS: CLINDAMYCIN HCL 150 MG CAPSULE PO SCH ×3 (08:59→22:41)
[2023-04-04] MEDS: ASCORBIC ACID 500 MG TABLET PO SCH (08:59)
[2023-04-04] MEDS ORDERED: metOLazone 5 MG TABLET PO SCH ×2 (09:00)
[2023-04-04] MEDS: POLYETHYLENE GLYCOL 3350, 17 GM/ POWD.PACK PO SCH (09:00)
[2023-04-04] MEDS ORDERED: lisinopriL 5 MG TABLET PO SCH (09:00)
[2023-04-04] MEDS ORDERED: ASPIRIN 81 MG TABLET(ECOTRIN) PO SCH (09:00)
[2023-04-04] MEDS ORDERED: CLOPIDOGREL BISULFATE 75 MG TABLET PO SCH (09:00)
[2023-04-04] MEDS: DOCUSATE SODIUM 100 MG CAPSULE PO SCH ×2 (09:08→21:00)
[2023-04-04] MEDS: NEPHROVITE, (FOLIC ACID/VITAMIN B COMP W-C 1 TAB) PO SCH (09:15)
[2023-04-04] MEDS: FOLIC ACID 1 MG TABLET PO SCH (09:15)
[2023-04-04] MEDS: methIMAzole 5 MG TABLET PO SCH (09:25)
[2023-04-04] MEDS: NACL 0.9% 1,000 ML IV SCH (09:50)
[2023-04-04] MEDS ORDERED: VANCOMYCIN HCL 1,000 MG in NS 250 ML IV ONE (10:00)
[2023-04-04 11:14] VITALS: BP_SYST 106; PULSE 71; RESP 18; TEMP 98.1; O2SAT 98
[2023-04-04] MEDS ORDERED: D5W 1,000 ML IV PRN (14:15)
[2023-04-04] MEDS ORDERED: DEXTROSE 50% JECT 50 ML DISP.SYRIN IVP PRN (14:15)
[2023-04-04] MEDS ORDERED: GLUCOSE (DEXTROSE) ORAL GEL -Adults PO PRN (14:15)
[2023-04-04] MEDS: INSULIN LISPRO SLIDING SCALE 100 UNITS/ML, 3 ML VIAL (humaLOG) SUBCUT PRN ×3 (14:27→22:53)
[2023-04-04 16:17] LABS: ANION GAP 7 (5-15); CALCIUM 8.7 mg/dL (8.4-11.0); CARBON DIOXIDE 26 mmol/L (23-29); CHLORIDE 94 mmol/L (98-107); CREATININE 2.49 mg/dL (0.55-1.30); GLUCOSE 312 mg/dL (74-106); SODIUM SERUM 127 mmol/L (136-145); UREA NITROGEN, BLOOD 78 mg/dL (8-21)
[2023-04-04 16:27] VITALS: BP_SYST 107; PULSE 76; RESP 17; TEMP 99; O2SAT 97
[2023-04-04] MEDS ORDERED: POTASSIUM CHLORIDE 20 MEQ TAB.PRT.SR ONE (17:42)
[2023-04-04 20:00] VITALS: BP_SYST 106; PULSE 67; RESP 18; RESP 22; TEMP 98.2; O2SAT 97
[2023-04-04] MEDS ORDERED: PRAMOXINE HCL/CALAMINE 177 ML LOTION TP PRN (23:30)
[2023-04-05] VITALS (8 sets, daily range): BP systolic 108–130; PULSE 66–105; RESP 18–20; TEMP 95.5–98.8; O2SAT 94–98
[2023-04-05] MEDS: PIPERACILLIN/TAZO 2.25G/DEX-IS 50 ML IV SCH ×4 (01:23→18:17)
[2023-04-05] MEDS: NACL 0.9% 1,000 ML IV SCH ×2 (01:24→11:53)
[2023-04-05 05:31] LABS: BASOPHILS % (AUTO) 0.4 % (0.0-2.0); EOSINOPHILS # (AUTO) 0.4 K/uL (0.0-0.4); EOSINOPHILS % (AUTO) 4.5 % (0.0-4.0); LYMPHOCYTES # (AUTO) 0.7 K/uL (1.0-5.5); LYMPHOCYTES % (AUTO) 7.6 % (20.5-51.5); MEAN CORPUSCULAR HEMOGLOBIN 28 pg (27-31); MEAN CORPUSCULAR HGB CONC 32 % (32-36); MEAN CORPUSCULAR VOLUME 86 fL (79.0-98.0); MONOCYTES # (AUTO) 0.9 K/uL (0.0-1.0); MONOCYTES % (AUTO) 9.9 % (1.7-9.3); NEUTROPHILS # (AUTO) 6.9 K/uL (1.8-7.7); NEUTROPHILS % (AUTO) 77.6 % (40.0-70.0); PLATELET COUNT (AUTO) 298 K/uL (130-430); RED BLOOD CELL COUNT(AUTO) 2.35 MIL/uL (4.2-6.2); RED CELL DISTRIBUTION WIDTH 15.4 % (9.0-15.0); WHITE BLOOD COUNT (AUTO) 8.9 K/uL (4.8-10.8)
[2023-04-05 05:52] LABS: ANION GAP 8 (5-15); CALCIUM 8.7 mg/dL (8.4-11.0); CARBON DIOXIDE 24 mmol/L (23-29); CHLORIDE 95 mmol/L (98-107); CREATININE 2.21 mg/dL (0.55-1.30); GLUCOSE 248 mg/dL (74-106); POTASSIUM 3.2 mmol/L (3.5-5.1); SODIUM SERUM 127 mmol/L (136-145); UREA NITROGEN, BLOOD 68 mg/dL (8-21); VANCOMYCIN,RANDOM 20.4 ug/mL (20.0-30.0)
[2023-04-05 06:03] LABS: HEMATOCRIT 20.1 % (36-48); HEMOGLOBIN 6.5 g/dL (12.0-16.0)
[2023-04-05] MEDS: ACETAMINOPHEN 500 MG TABLET PO PRN (06:09)
[2023-04-05] MEDS: INSULIN LISPRO SLIDING SCALE 100 UNITS/ML, 3 ML VIAL (humaLOG) SUBCUT PRN ×4 (06:22→21:27)
[2023-04-05] MEDS: BUDESONIDE 0.5 MG/2 ML AMPUL.NEB INH SCH ×2 (08:01→19:58)
[2023-04-05] MEDS: MULTIVITAMINS TAB 1 TABLET PO SCH (08:34)
[2023-04-05] MEDS: DOCUSATE SODIUM 100 MG CAPSULE PO SCH ×2 (08:34→20:57)
[2023-04-05] MEDS: PANTOPRAZOLE SODIUM 40 MG TAB PO SCH (08:34)
[2023-04-05] MEDS: ATORVASTATIN 20 MG TABLET PO SCH (08:34)
[2023-04-05] MEDS: buPROPion HCL 150 MG XL TAB PO SCH ×2 (08:34→08:43)
[2023-04-05] MEDS: CLINDAMYCIN HCL 150 MG CAPSULE PO SCH ×3 (08:34→20:57)
[2023-04-05] MEDS: NEPHROVITE, (FOLIC ACID/VITAMIN B COMP W-C 1 TAB) PO SCH (08:34)
[2023-04-05] MEDS: FOLIC ACID 1 MG TABLET PO SCH (08:34)
[2023-04-05] MEDS: ASCORBIC ACID 500 MG TABLET PO SCH (08:34)
[2023-04-05] MEDS: methIMAzole 5 MG TABLET PO SCH (08:35)
[2023-04-05] MEDS: POLYETHYLENE GLYCOL 3350, 17 GM/ POWD.PACK PO SCH (08:35)
[2023-04-05] MEDS: HYDROXYCHLOROQUINE SULFATE 200 MG TABLET PO SCH ×2 (08:35→21:04)
[2023-04-05] MEDS: Effexor XR 37.5 MG PO SCH (08:35)
[2023-04-05 12:32] LABS: TOTAL IRON BIND. CAPACITY 128 ug/dL (250-450)
[2023-04-06] MEDS: ACETAMINOPHEN 500 MG TABLET PO PRN ×2 (00:06→12:39)
[2023-04-06 00:07] VITALS: BP_SYST 142; PULSE 75; RESP 18; TEMP 98.7; O2SAT 96
[2023-04-06] MEDS: PIPERACILLIN/TAZO 2.25G/DEX-IS 50 ML IV SCH ×2 (00:09→05:42)
[2023-04-06] MEDS: NACL 0.9% 1,000 ML IV SCH ×2 (01:45→15:05)
[2023-04-06 04:47] LABS: BASOPHILS % (AUTO) 0.4 % (0.0-2.0); EOSINOPHILS # (AUTO) 0.4 K/uL (0.0-0.4); EOSINOPHILS % (AUTO) 3.6 % (0.0-4.0); LYMPHOCYTES # (AUTO) 1.1 K/uL (1.0-5.5); MEAN CORPUSCULAR HEMOGLOBIN 28 pg (27-31); MEAN CORPUSCULAR HGB CONC 32 % (32-36); MEAN CORPUSCULAR VOLUME 86 fL (79.0-98.0); MONOCYTES # (AUTO) 1.3 K/uL (0.0-1.0); PLATELET COUNT (AUTO) 372 K/uL (130-430); RED BLOOD CELL COUNT(AUTO) 2.52 MIL/uL (4.2-6.2); RED CELL DISTRIBUTION WIDTH 15.3 % (9.0-15.0); WHITE BLOOD COUNT (AUTO) 9.7 K/uL (4.8-10.8)
[2023-04-06 04:59] LABS: INR 1.1 (0.8-1.2); PROTHROMBIN TIME 11.8 SECS (9.5-12.5)
[2023-04-06 05:24] LABS: ALANINE AMINOTRANSFERASE 129 U/L (12-78); ALBUMIN 1.6 g/dL (3.4-4.8); ANION GAP 12 (5-15); ASPARTATE AMINOTRANSFERASE 48 U/L (10-37); CALCIUM 9.1 mg/dL (8.4-11.0); CARBON DIOXIDE 24 mmol/L (23-29); CHLORIDE 102 mmol/L (98-107); CHOLESTEROL 93 mg/dL (<200); CREATININE 1.74 mg/dL (0.55-1.30); FREE T4 (FREE THYROXINE) 1.2 ng/dL (0.6-1.6); GLUCOSE 184 mg/dL (74-106); HDL CHOLESTEROL 20 mg/dL (>55); POTASSIUM 3.1 mmol/L (3.5-5.1); SODIUM SERUM 138 mmol/L (136-145); THYROID STIMULATING HORMONE 3.12 uIu/mL (0.34-4.82); TOTAL BILIRUBIN 0.3 mg/dL (0.0-1.0); TOTAL PROTEIN, SERUM 6.7 g/dL (6.4-8.3); TRIGLYCERIDES 144 mg/dL (30-150); UREA NITROGEN, BLOOD 49 mg/dL (8-21); VANCOMYCIN,RANDOM 13.6 ug/mL (20.0-30.0)
[2023-04-06 05:53] LABS: HEMATOCRIT 21.6 % (36-48)
[2023-04-06] MEDS ORDERED: *LOVENOX 1MG/KG Q12H/PHARMACY XX PRN (06:45)
[2023-04-06 08:00] VITALS: BP_SYST 147; PULSE 76; RESP 20; TEMP 97.7; O2SAT 96
[2023-04-06] MEDS ORDERED: PRAMOXINE HCL/CALAMINE 177 ML LOTION TP PRN (08:00)
[2023-04-06] MEDS: BUDESONIDE 0.5 MG/2 ML AMPUL.NEB INH SCH ×2 (09:00→21:00)
[2023-04-06 09:06] LABS: FERRITIN 4265 ng/mL (15-150)
[2023-04-06 09:40] VITALS: O2SAT 98
[2023-04-06] MEDS: PANTOPRAZOLE SODIUM 40 MG TAB PO SCH (10:43)
[2023-04-06] MEDS: ATORVASTATIN 20 MG TABLET PO SCH (10:44)
[2023-04-06] MEDS: MULTIVITAMINS TAB 1 TABLET PO SCH (10:44)
[2023-04-06] MEDS: ASCORBIC ACID 500 MG TABLET PO SCH (10:44)
[2023-04-06] MEDS: DOCUSATE SODIUM 100 MG CAPSULE PO SCH ×2 (10:44→21:00)
[2023-04-06] MEDS: CLINDAMYCIN HCL 150 MG CAPSULE PO SCH ×3 (10:44→22:33)
[2023-04-06] MEDS: ENOXAPARIN SODIUM 80 MG/0.8 ML SYRINGE SUBCUT SCH ×2 (10:45→22:34)
[2023-04-06] MEDS: FOLIC ACID 1 MG TABLET PO SCH (10:45)
[2023-04-06] MEDS: POLYETHYLENE GLYCOL 3350, 17 GM/ POWD.PACK PO SCH (10:45)
[2023-04-06] MEDS: buPROPion HCL 150 MG XL TAB PO SCH (10:52)
[2023-04-06] MEDS: methIMAzole 5 MG TABLET PO SCH (10:52)
[2023-04-06] MEDS: HYDROXYCHLOROQUINE SULFATE 200 MG TABLET PO SCH ×2 (10:53→22:34)
[2023-04-06] MEDS: Effexor XR 37.5 MG PO SCH (10:53)
[2023-04-06] MEDS: NEPHROVITE, (FOLIC ACID/VITAMIN B COMP W-C 1 TAB) PO SCH (11:01)
[2023-04-06] MEDS ORDERED: POTASSIUM CHLORIDE 20 MEQ TAB.PRT.SR PO ONE (12:00)
[2023-04-06 12:43] VITALS: BP_SYST 143; PULSE 74; RESP 19; TEMP 98.1; O2SAT 97
[2023-04-06] MEDS: INSULIN LISPRO SLIDING SCALE 100 UNITS/ML, 3 ML VIAL (humaLOG) SUBCUT PRN ×2 (12:43→19:08)
[2023-04-06] MEDS: CEFEPIME 2 GM in D5W 100 ML IV SCH (12:54)
[2023-04-06 16:36] VITALS: BP_SYST 146; PULSE 75; RESP 20; TEMP 97.9; O2SAT 97
[2023-04-06 20:00] VITALS: BP_SYST 150; PULSE 74; RESP 18; TEMP 97.6; O2SAT 100; O2SAT 99
[2023-04-07] VITALS (7 sets, daily range): BP systolic 145–154; PULSE 77–85; RESP 12–17; TEMP 96.9–98.3; O2SAT 95–99
[2023-04-07] MEDS: ONDANSETRON HCL 4 MG/2 ML VIAL IVP PRN (02:55)
[2023-04-07] MEDS: NACL 0.9% 1,000 ML IV SCH ×2 (05:16→17:45)
[2023-04-07 05:23] LABS: BASOPHILS # (AUTO) 0.1 K/uL (0.0-0.2); BASOPHILS % (AUTO) 0.6 % (0.0-2.0); EOSINOPHILS # (AUTO) 0.3 K/uL (0.0-0.4); EOSINOPHILS % (AUTO) 2.5 % (0.0-4.0); HEMATOCRIT 25.7 % (36-48); HEMOGLOBIN 8.2 g/dL (12.0-16.0); LYMPHOCYTES # (AUTO) 0.7 K/uL (1.0-5.5); LYMPHOCYTES % (AUTO) 6.3 % (20.5-51.5); MEAN CORPUSCULAR HEMOGLOBIN 28 pg (27-31); MEAN CORPUSCULAR HGB CONC 32 % (32-36); MEAN CORPUSCULAR VOLUME 86 fL (79.0-98.0); MONOCYTES % (AUTO) 8.9 % (1.7-9.3); NEUTROPHILS # (AUTO) 8.9 K/uL (1.8-7.7); NEUTROPHILS % (AUTO) 81.7 % (40.0-70.0); PLATELET COUNT (AUTO) 427 K/uL (130-430); RED BLOOD CELL COUNT(AUTO) 2.98 MIL/uL (4.2-6.2); RED CELL DISTRIBUTION WIDTH 15.1 % (9.0-15.0); WHITE BLOOD COUNT (AUTO) 10.9 K/uL (4.8-10.8)
[2023-04-07 05:41] LABS: ANION GAP 12 (5-15); CALCIUM 9.4 mg/dL (8.4-11.0); CARBON DIOXIDE 23 mmol/L (23-29); CHLORIDE 106 mmol/L (98-107); CREATININE 1.22 mg/dL (0.55-1.30); GLUCOSE 176 mg/dL (74-106); POTASSIUM 3.4 mmol/L (3.5-5.1); SODIUM SERUM 141 mmol/L (136-145); UREA NITROGEN, BLOOD 28 mg/dL (8-21)
[2023-04-07 06:00] LABS: ALANINE AMINOTRANSFERASE 91 U/L (12-78); ALBUMIN 1.7 g/dL (3.4-4.8); ASPARTATE AMINOTRANSFERASE 32 U/L (10-37); TOTAL BILIRUBIN 0.4 mg/dL (0.0-1.0)
[2023-04-07] MEDS: INSULIN LISPRO SLIDING SCALE 100 UNITS/ML, 3 ML VIAL (humaLOG) SUBCUT PRN ×3 (06:06→21:07)
[2023-04-07] MEDS: DOCUSATE SODIUM 100 MG CAPSULE PO SCH ×3 (09:00→21:01)
[2023-04-07] MEDS: BUDESONIDE 0.5 MG/2 ML AMPUL.NEB INH SCH ×2 (09:00→21:00)
[2023-04-07] MEDS: CLINDAMYCIN HCL 150 MG CAPSULE PO SCH ×3 (10:04→21:01)
[2023-04-07] MEDS: FOLIC ACID 1 MG TABLET PO SCH (10:05)
[2023-04-07] MEDS: MULTIVITAMINS TAB 1 TABLET PO SCH (10:06)
[2023-04-07] MEDS: NEPHROVITE, (FOLIC ACID/VITAMIN B COMP W-C 1 TAB) PO SCH (10:06)
[2023-04-07] MEDS: buPROPion HCL 150 MG XL TAB PO SCH (10:07)
[2023-04-07] MEDS: ASCORBIC ACID 500 MG TABLET PO SCH (10:07)
[2023-04-07] MEDS: POLYETHYLENE GLYCOL 3350, 17 GM/ POWD.PACK PO SCH (10:08)
[2023-04-07] MEDS: ATORVASTATIN 20 MG TABLET PO SCH (10:08)
[2023-04-07] MEDS: PANTOPRAZOLE SODIUM 40 MG TAB PO SCH (10:08)
[2023-04-07] MEDS: ENOXAPARIN SODIUM 80 MG/0.8 ML SYRINGE SUBCUT SCH ×2 (10:09→21:00)
[2023-04-07] MEDS: Effexor XR 37.5 MG PO SCH (10:10)
[2023-04-07] MEDS: HYDROXYCHLOROQUINE SULFATE 200 MG TABLET PO SCH ×2 (10:10→21:01)
[2023-04-07] MEDS: methIMAzole 5 MG TABLET PO SCH (10:11)
[2023-04-07] MEDS: CEFEPIME 2 GM in D5W 100 ML IV SCH (11:57)
[2023-04-07] MEDS: ACETAMINOPHEN 500 MG TABLET PO PRN ×2 (13:33→21:02)
[2023-04-07] MEDS ORDERED: POTASSIUM CHLORIDE 20 MEQ TAB.PRT.SR PO ONE (20:00)
[2023-04-08] VITALS (8 sets, daily range): BP systolic 141–147; PULSE 71–83; RESP 16–19; TEMP 97.8–98.8; O2SAT 95–99
[2023-04-08 04:19] LABS: BASOPHILS # (AUTO) 0.1 K/uL (0.0-0.2); BASOPHILS % (AUTO) 0.7 % (0.0-2.0); EOSINOPHILS # (AUTO) 0.3 K/uL (0.0-0.4); EOSINOPHILS % (AUTO) 3.5 % (0.0-4.0); HEMATOCRIT 24.9 % (36-48); HEMOGLOBIN 8.1 g/dL (12.0-16.0); LYMPHOCYTES # (AUTO) 1.4 K/uL (1.0-5.5); LYMPHOCYTES % (AUTO) 15.3 % (20.5-51.5); MEAN CORPUSCULAR HEMOGLOBIN 28 pg (27-31); MEAN CORPUSCULAR HGB CONC 32 % (32-36); MEAN CORPUSCULAR VOLUME 88 fL (79.0-98.0); MONOCYTES # (AUTO) 1.1 K/uL (0.0-1.0); MONOCYTES % (AUTO) 12.6 % (1.7-9.3); NEUTROPHILS # (AUTO) 6.1 K/uL (1.8-7.7); NEUTROPHILS % (AUTO) 67.9 % (40.0-70.0); PLATELET COUNT (AUTO) 401 K/uL (130-430); RED BLOOD CELL COUNT(AUTO) 2.85 MIL/uL (4.2-6.2); RED CELL DISTRIBUTION WIDTH 15.3 % (9.0-15.0); WHITE BLOOD COUNT (AUTO) 8.9 K/uL (4.8-10.8)
[2023-04-08 04:36] LABS: ANION GAP 9 (5-15); CALCIUM 9.2 mg/dL (8.4-11.0); CARBON DIOXIDE 25 mmol/L (23-29); CHLORIDE 106 mmol/L (98-107); CREATININE 1.15 mg/dL (0.55-1.30); GLUCOSE 125 mg/dL (74-106); POTASSIUM 3.7 mmol/L (3.5-5.1); SODIUM SERUM 140 mmol/L (136-145); UREA NITROGEN, BLOOD 18 mg/dL (8-21)
[2023-04-08] MEDS: NACL 0.9% 1,000 ML IV SCH ×2 (06:34→11:46)
[2023-04-08] MEDS: BUDESONIDE 0.5 MG/2 ML AMPUL.NEB INH SCH ×2 (09:00→21:37)
[2023-04-08] MEDS: ATORVASTATIN 20 MG TABLET PO SCH (09:42)
[2023-04-08] MEDS: FOLIC ACID 1 MG TABLET PO SCH (09:43)
[2023-04-08] MEDS: CLINDAMYCIN HCL 150 MG CAPSULE PO SCH ×3 (09:44→23:27)
[2023-04-08] MEDS: PANTOPRAZOLE SODIUM 40 MG TAB PO SCH (09:44)
[2023-04-08] MEDS: NEPHROVITE, (FOLIC ACID/VITAMIN B COMP W-C 1 TAB) PO SCH (09:44)
[2023-04-08] MEDS: DOCUSATE SODIUM 100 MG CAPSULE PO SCH ×2 (09:44→21:00)
[2023-04-08] MEDS: MULTIVITAMINS TAB 1 TABLET PO SCH (09:45)
[2023-04-08] MEDS: POLYETHYLENE GLYCOL 3350, 17 GM/ POWD.PACK PO SCH (09:45)
[2023-04-08] MEDS: ASCORBIC ACID 500 MG TABLET PO SCH (09:45)
[2023-04-08] MEDS: ENOXAPARIN SODIUM 80 MG/0.8 ML SYRINGE SUBCUT SCH ×2 (09:46→21:00)
[2023-04-08] MEDS: HYDROXYCHLOROQUINE SULFATE 200 MG TABLET PO SCH ×2 (09:47→23:27)
[2023-04-08] MEDS: Effexor XR 37.5 MG PO SCH (09:48)
[2023-04-08] MEDS: methIMAzole 5 MG TABLET PO SCH (09:49)
[2023-04-08] MEDS: buPROPion HCL 150 MG XL TAB PO SCH (09:55)
[2023-04-08] MEDS: CEFEPIME 2 GM in D5W 100 ML IV SCH (11:46)
[2023-04-08] MEDS: ONDANSETRON HCL 4 MG/2 ML VIAL IVP PRN (12:59)
[2023-04-09] VITALS (8 sets, daily range): BP systolic 145–154; PULSE 78–89; RESP 17–20; TEMP 97–98.3; O2SAT 95–99
[2023-04-09] MEDS: NACL 0.9% 1,000 ML IV SCH ×2 (05:05→23:05)
[2023-04-09] MEDS: BUDESONIDE 0.5 MG/2 ML AMPUL.NEB INH SCH ×2 (08:21→20:00)
[2023-04-09] MEDS: DOCUSATE SODIUM 100 MG CAPSULE PO SCH ×2 (09:00→21:00)
[2023-04-09] MEDS: ENOXAPARIN SODIUM 80 MG/0.8 ML SYRINGE SUBCUT SCH (09:00)
[2023-04-09] MEDS: POLYETHYLENE GLYCOL 3350, 17 GM/ POWD.PACK PO SCH (09:00)
[2023-04-09] MEDS: CLINDAMYCIN HCL 150 MG CAPSULE PO SCH ×3 (09:01→21:00)
[2023-04-09] MEDS: ASCORBIC ACID 500 MG TABLET PO SCH (09:01)
[2023-04-09] MEDS: PANTOPRAZOLE SODIUM 40 MG TAB PO SCH (09:02)
[2023-04-09] MEDS: NEPHROVITE, (FOLIC ACID/VITAMIN B COMP W-C 1 TAB) PO SCH (09:02)
[2023-04-09] MEDS: FOLIC ACID 1 MG TABLET PO SCH (09:02)
[2023-04-09] MEDS: MULTIVITAMINS TAB 1 TABLET PO SCH (09:02)
[2023-04-09] MEDS: ATORVASTATIN 20 MG TABLET PO SCH (09:03)
[2023-04-09] MEDS: HYDROXYCHLOROQUINE SULFATE 200 MG TABLET PO SCH ×2 (09:09→21:07)
[2023-04-09] MEDS: Effexor XR 37.5 MG PO SCH (09:09)
[2023-04-09] MEDS: methIMAzole 5 MG TABLET PO SCH (09:10)
[2023-04-09] MEDS: buPROPion HCL 150 MG XL TAB PO SCH (09:31)
[2023-04-09] MEDS: CEFEPIME 2 GM in D5W 100 ML IV SCH (11:53)
[2023-04-09] MEDS: INSULIN LISPRO SLIDING SCALE 100 UNITS/ML, 3 ML VIAL (humaLOG) SUBCUT PRN (21:14)
[2023-04-10 01:15] VITALS: BP_SYST 160; PULSE 79; RESP 18; TEMP 97.8; O2SAT 97
[2023-04-10 05:19] LABS: ANION GAP 9 (5-15); CALCIUM 9.2 mg/dL (8.4-11.0); CARBON DIOXIDE 23 mmol/L (23-29); CHLORIDE 104 mmol/L (98-107); CREATININE 1.12 mg/dL (0.55-1.30); GLUCOSE 141 mg/dL (74-106); POTASSIUM 3.6 mmol/L (3.5-5.1); SODIUM SERUM 136 mmol/L (136-145); UREA NITROGEN, BLOOD 12 mg/dL (8-21)
[2023-04-10 05:21] LABS: BASOPHILS # (AUTO) 0.1 K/uL (0.0-0.2); EOSINOPHILS # (AUTO) 0.3 K/uL (0.0-0.4); EOSINOPHILS % (AUTO) 2.9 % (0.0-4.0); HEMATOCRIT 25.8 % (36-48); HEMOGLOBIN 8.3 g/dL (12.0-16.0); LYMPHOCYTES # (AUTO) 1.5 K/uL (1.0-5.5); LYMPHOCYTES % (AUTO) 17.5 % (20.5-51.5); MEAN CORPUSCULAR HEMOGLOBIN 28 pg (27-31); MEAN CORPUSCULAR HGB CONC 32 % (32-36); MEAN CORPUSCULAR VOLUME 87 fL (79.0-98.0); MONOCYTES # (AUTO) 0.9 K/uL (0.0-1.0); MONOCYTES % (AUTO) 10.7 % (1.7-9.3); NEUTROPHILS % (AUTO) 67.9 % (40.0-70.0); PLATELET COUNT (AUTO) 440 K/uL (130-430); RED BLOOD CELL COUNT(AUTO) 2.95 MIL/uL (4.2-6.2); RED CELL DISTRIBUTION WIDTH 15.6 % (9.0-15.0); WHITE BLOOD COUNT (AUTO) 8.8 K/uL (4.8-10.8)
[2023-04-10 05:24] LABS: INR 1.3 (0.8-1.2); PROTHROMBIN TIME 13.6 SECS (9.5-12.5)
[2023-04-10 08:00] VITALS: BP_SYST 168; PULSE 81; RESP 16; TEMP 98; O2SAT 97
[2023-04-10] MEDS: NEPHROVITE, (FOLIC ACID/VITAMIN B COMP W-C 1 TAB) PO SCH (09:00)
[2023-04-10] MEDS: Effexor XR 37.5 MG PO SCH (09:00)
[2023-04-10] MEDS: ATORVASTATIN 20 MG TABLET PO SCH (09:00)
[2023-04-10] MEDS: MULTIVITAMINS TAB 1 TABLET PO SCH (09:00)
[2023-04-10] MEDS: DOCUSATE SODIUM 100 MG CAPSULE PO SCH ×2 (09:00→21:00)
[2023-04-10] MEDS: methIMAzole 5 MG TABLET PO SCH (09:00)
[2023-04-10] MEDS: POLYETHYLENE GLYCOL 3350, 17 GM/ POWD.PACK PO SCH (09:00)
[2023-04-10] MEDS: HYDROXYCHLOROQUINE SULFATE 200 MG TABLET PO SCH ×2 (09:00→22:21)
[2023-04-10] MEDS: FOLIC ACID 1 MG TABLET PO SCH (09:00)
[2023-04-10] MEDS: PANTOPRAZOLE SODIUM 40 MG TAB PO SCH (09:00)
[2023-04-10] MEDS: ASCORBIC ACID 500 MG TABLET PO SCH (09:00)
[2023-04-10] MEDS: buPROPion HCL 150 MG XL TAB PO SCH (09:00)
[2023-04-10] MEDS: BUDESONIDE 0.5 MG/2 ML AMPUL.NEB INH SCH ×2 (09:26→21:00)
[2023-04-10 09:30] VITALS: O2SAT 97
[2023-04-10] MEDS ORDERED: ENALAPRILAT DIHYDRATE 1.25 MG/ML VIAL IVP ONE (10:15)
[2023-04-10] MEDS ORDERED: LABETALOL HCL 20 MG/4 ML CARTRIDGE IVP ONE (11:15)
[2023-04-10] MEDS: CEFEPIME 2 GM in D5W 100 ML IV SCH (11:26)
[2023-04-10] MEDS: NACL 0.9% 1,000 ML IV SCH (11:26)
[2023-04-10 12:00] VITALS: BP_SYST 160; PULSE 87; RESP 18; TEMP 98.7; O2SAT 97
[2023-04-10] MEDS: INSULIN LISPRO SLIDING SCALE 100 UNITS/ML, 3 ML VIAL (humaLOG) SUBCUT PRN (12:01)
[2023-04-10 16:18] VITALS: BP_SYST 159; PULSE 84; RESP 17; TEMP 98.4; O2SAT 98
[2023-04-10 20:00] VITALS: BP_SYST 159; PULSE 87; RESP 20; TEMP 98.9; O2SAT 99
[2023-04-10] MEDS: DIPHENHYDRAMINE INJ 50 MG/ML VIAL IVP PRN (20:18)
[2023-04-11] VITALS (8 sets, daily range): BP systolic 143–152; PULSE 80–99; RESP 16–20; TEMP 97.7–99; O2SAT 95–99
[2023-04-11] MEDS: DIPHENHYDRAMINE INJ 50 MG/ML VIAL IVP PRN ×4 (02:51→21:11)
[2023-04-11] MEDS: NACL 0.9% 1,000 ML IV SCH ×2 (02:51→14:56)
[2023-04-11] MEDS: INSULIN LISPRO SLIDING SCALE 100 UNITS/ML, 3 ML VIAL (humaLOG) SUBCUT PRN ×2 (06:32→21:50)
[2023-04-11] MEDS ORDERED: LANOLIN ALCOHOL/MO/W.PET/CERES 57 GM CREAM..G. TP PRN (06:45)
[2023-04-11] MEDS: MULTIVITAMINS TAB 1 TABLET PO SCH (08:20)
[2023-04-11] MEDS: Effexor XR 37.5 MG PO SCH (08:20)
[2023-04-11] MEDS: DOCUSATE SODIUM 100 MG CAPSULE PO SCH ×2 (08:20→21:00)
[2023-04-11] MEDS: PANTOPRAZOLE SODIUM 40 MG TAB PO SCH (08:20)
[2023-04-11] MEDS: FOLIC ACID 1 MG TABLET PO SCH (08:20)
[2023-04-11] MEDS: ATORVASTATIN 20 MG TABLET PO SCH (08:20)
[2023-04-11] MEDS: POLYETHYLENE GLYCOL 3350, 17 GM/ POWD.PACK PO SCH (08:20)
[2023-04-11] MEDS: NEPHROVITE, (FOLIC ACID/VITAMIN B COMP W-C 1 TAB) PO SCH (08:20)
[2023-04-11] MEDS: HYDROXYCHLOROQUINE SULFATE 200 MG TABLET PO SCH ×2 (08:20→21:41)
[2023-04-11] MEDS: buPROPion HCL 150 MG XL TAB PO SCH (08:21)
[2023-04-11] MEDS: ASCORBIC ACID 500 MG TABLET PO SCH (08:21)
[2023-04-11] MEDS: methIMAzole 5 MG TABLET PO SCH (08:21)
[2023-04-11] MEDS ORDERED: MIDAZOLAM HCL 5 MG/5 ML VIAL ONE (08:40)
[2023-04-11] MEDS ORDERED: fentaNYL CITRATE/PF 100 MCG/2 ML AMP ONE (08:40)
[2023-04-11] MEDS ORDERED: KETAMINE HCL IN 0.9 % NACL 50 MG/5 ML SYRINGE ONE (08:41)
[2023-04-11] MEDS ORDERED: BUPIVACAINE /PF 0.25% 30 ML VIAL INJ ONE (08:45)
[2023-04-11] MEDS ORDERED: CEFAZOLIN 2 GM IVPB PREMIX 50 ML IV ONE (08:45)
[2023-04-11] MEDS ORDERED: LIDOCAINE 1% 10 MG/ML, 20 ML MDV ONE (08:45)
[2023-04-11] MEDS ORDERED: NEOSTIGMINE METHYLSULFATE 1 MG/ML, 10 ML VIAL ONE (08:45)
[2023-04-11] MEDS ORDERED: PROPOFOL 200MG/ 20ML VIAL (DIPRIVAN) IV ONE (08:45)
[2023-04-11] MEDS ORDERED: GLYCOPYRROLATE 0.2 MG/ML VIAL ONE (08:45)
[2023-04-11] MEDS ORDERED: NS IRRIG SOLN 1000 ML IR ONE (08:45)
[2023-04-11] MEDS ORDERED: LR 1,000 ML IV.SOLN IV ONE (08:45)
[2023-04-11] MEDS ORDERED: ONDANSETRON HCL 4 MG/2 ML VIAL IVP PRN (10:00)
[2023-04-11] MEDS ORDERED: NALOXONE HCL 0.4 MG/ML AMP (NARCAN) IVP PRN (10:00)
[2023-04-11] MEDS ORDERED: HYDROmorphone 1 MG/ML INJ. CARTRIDGE IVP PRN (10:00)
[2023-04-11] MEDS: CEFEPIME 2 GM in D5W 100 ML IV SCH (11:29)
[2023-04-11] MEDS: BUDESONIDE 0.5 MG/2 ML AMPUL.NEB INH SCH (21:00)
[2023-04-11] MEDS ORDERED: ALPRAZolam 0.25 MG TABLET PO PRN (22:45)
[2023-04-11] MEDS ORDERED: HYDROcodone/ACETAMIN 5-325 MG TAB (NORCO/ VICODIN) PO PRN (22:45)
[2023-04-12] VITALS (7 sets, daily range): BP systolic 151–163; PULSE 84–95; RESP 17–18; TEMP 98.1–99.3; O2SAT 97–99
[2023-04-12 05:58] LABS: BASOPHILS # (AUTO) 0.1 K/uL (0.0-0.2); BASOPHILS % (AUTO) 0.9 % (0.0-2.0); EOSINOPHILS # (AUTO) 0.2 K/uL (0.0-0.4); EOSINOPHILS % (AUTO) 2.3 % (0.0-4.0); HEMATOCRIT 25.9 % (36-48); HEMOGLOBIN 8.3 g/dL (12.0-16.0); LYMPHOCYTES # (AUTO) 1.5 K/uL (1.0-5.5); LYMPHOCYTES % (AUTO) 17.3 % (20.5-51.5); MEAN CORPUSCULAR HEMOGLOBIN 28 pg (27-31); MEAN CORPUSCULAR HGB CONC 32 % (32-36); MEAN CORPUSCULAR VOLUME 88 fL (79.0-98.0); MONOCYTES # (AUTO) 0.9 K/uL (0.0-1.0); MONOCYTES % (AUTO) 11.1 % (1.7-9.3); NEUTROPHILS # (AUTO) 5.8 K/uL (1.8-7.7); NEUTROPHILS % (AUTO) 68.4 % (40.0-70.0); PLATELET COUNT (AUTO) 417 K/uL (130-430); RED BLOOD CELL COUNT(AUTO) 2.95 MIL/uL (4.2-6.2); WHITE BLOOD COUNT (AUTO) 8.5 K/uL (4.8-10.8)
[2023-04-12 06:14] LABS: ANION GAP 9 (5-15); CALCIUM 8.9 mg/dL (8.4-11.0); CARBON DIOXIDE 25 mmol/L (23-29); CHLORIDE 109 mmol/L (98-107); CREATININE 1.07 mg/dL (0.55-1.30); GLUCOSE 129 mg/dL (74-106); POTASSIUM 3.7 mmol/L (3.5-5.1); SODIUM SERUM 143 mmol/L (136-145); UREA NITROGEN, BLOOD 9 mg/dL (8-21)
[2023-04-12] MEDS: NACL 0.9% 1,000 ML IV SCH ×3 (06:40→23:04)
[2023-04-12] MEDS: ASCORBIC ACID 500 MG TABLET PO SCH (08:43)
[2023-04-12] MEDS: MULTIVITAMINS TAB 1 TABLET PO SCH (08:43)
[2023-04-12] MEDS: FOLIC ACID 1 MG TABLET PO SCH (08:44)
[2023-04-12] MEDS: ATORVASTATIN 20 MG TABLET PO SCH (08:44)
[2023-04-12] MEDS: Effexor XR 37.5 MG PO SCH (08:44)
[2023-04-12] MEDS: PANTOPRAZOLE SODIUM 40 MG TAB PO SCH (08:44)
[2023-04-12] MEDS: NEPHROVITE, (FOLIC ACID/VITAMIN B COMP W-C 1 TAB) PO SCH (08:44)
[2023-04-12] MEDS: methIMAzole 5 MG TABLET PO SCH (08:45)
[2023-04-12] MEDS: HYDROXYCHLOROQUINE SULFATE 200 MG TABLET PO SCH ×2 (08:45→20:44)
[2023-04-12] MEDS: buPROPion HCL 150 MG XL TAB PO SCH (08:50)
[2023-04-12] MEDS: DOCUSATE SODIUM 100 MG CAPSULE PO SCH ×2 (08:58→20:49)
[2023-04-12] MEDS: POLYETHYLENE GLYCOL 3350, 17 GM/ POWD.PACK PO SCH (08:58)
[2023-04-12] MEDS: BUDESONIDE 0.5 MG/2 ML AMPUL.NEB INH SCH (09:00)
[2023-04-12] MEDS ORDERED: CLOPIDOGREL BISULFATE 75 MG TABLET PO ONE ×2 (10:15→10:30)
[2023-04-12] MEDS: CEFEPIME 2 GM in D5W 100 ML IV SCH (11:38)
[2023-04-13] VITALS (10 sets, daily range): BP systolic 137–152; PULSE 87–92; RESP 16–19; TEMP 97.3–99; O2SAT 92–97
[2023-04-13] MEDS: BUDESONIDE 0.5 MG/2 ML AMPUL.NEB INH SCH ×3 (03:14→23:43)
[2023-04-13 05:55] LABS: BASOPHILS # (AUTO) 0.1 K/uL (0.0-0.2); EOSINOPHILS # (AUTO) 0.2 K/uL (0.0-0.4); EOSINOPHILS % (AUTO) 2.5 % (0.0-4.0); HEMOGLOBIN 8.8 g/dL (12.0-16.0); LYMPHOCYTES # (AUTO) 1.1 K/uL (1.0-5.5); LYMPHOCYTES % (AUTO) 12.4 % (20.5-51.5); MEAN CORPUSCULAR HEMOGLOBIN 28 pg (27-31); MEAN CORPUSCULAR HGB CONC 32 % (32-36); MEAN CORPUSCULAR VOLUME 88 fL (79.0-98.0); MONOCYTES # (AUTO) 0.8 K/uL (0.0-1.0); MONOCYTES % (AUTO) 9.2 % (1.7-9.3); NEUTROPHILS # (AUTO) 6.6 K/uL (1.8-7.7); NEUTROPHILS % (AUTO) 74.9 % (40.0-70.0); PLATELET COUNT (AUTO) 408 K/uL (130-430); RED BLOOD CELL COUNT(AUTO) 3.16 MIL/uL (4.2-6.2); RED CELL DISTRIBUTION WIDTH 15.8 % (9.0-15.0); WHITE BLOOD COUNT (AUTO) 8.8 K/uL (4.8-10.8)
[2023-04-13 06:07] LABS: ANION GAP 7 (5-15); CARBON DIOXIDE 25 mmol/L (23-29); CHLORIDE 104 mmol/L (98-107); CREATININE 1.07 mg/dL (0.55-1.30); GLUCOSE 97 mg/dL (74-106); POTASSIUM 3.4 mmol/L (3.5-5.1); SODIUM SERUM 136 mmol/L (136-145); UREA NITROGEN, BLOOD 8 mg/dL (8-21)
[2023-04-13] MEDS: PANTOPRAZOLE SODIUM 40 MG TAB PO SCH (08:43)
[2023-04-13] MEDS: ASCORBIC ACID 500 MG TABLET PO SCH (08:43)
[2023-04-13] MEDS: NEPHROVITE, (FOLIC ACID/VITAMIN B COMP W-C 1 TAB) PO SCH (08:43)
[2023-04-13] MEDS: ATORVASTATIN 20 MG TABLET PO SCH (08:43)
[2023-04-13] MEDS: FOLIC ACID 1 MG TABLET PO SCH (08:43)
[2023-04-13] MEDS: Effexor XR 37.5 MG PO SCH (08:44)
[2023-04-13] MEDS: MULTIVITAMINS TAB 1 TABLET PO SCH (08:44)
[2023-04-13] MEDS: CLOPIDOGREL BISULFATE 75 MG TABLET PO SCH (08:44)
[2023-04-13] MEDS: HYDROXYCHLOROQUINE SULFATE 200 MG TABLET PO SCH ×2 (08:44→22:03)
[2023-04-13] MEDS: methIMAzole 5 MG TABLET PO SCH (08:45)
[2023-04-13] MEDS: buPROPion HCL 150 MG XL TAB PO SCH (08:49)
[2023-04-13] MEDS: DOCUSATE SODIUM 100 MG CAPSULE PO SCH ×2 (09:00→21:00)
[2023-04-13] MEDS: POLYETHYLENE GLYCOL 3350, 17 GM/ POWD.PACK PO SCH (09:00)
[2023-04-13] MEDS: ACETAMINOPHEN 500 MG TABLET PO PRN (09:05)
[2023-04-13] MEDS ORDERED: POTASSIUM CHLORIDE 20 MEQ TAB.PRT.SR PO ONE (09:30)
[2023-04-13] MEDS: CEFEPIME 2 GM in D5W 100 ML IV SCH (11:18)
[2023-04-13] MEDS ORDERED: MAXPM1 IV ×2 (17:32→17:37)
[2023-04-13] MEDS: NACL 0.9% 1,000 ML IV SCH (22:03)
[2023-04-13] MEDS: DIPHENHYDRAMINE INJ 50 MG/ML VIAL IVP PRN (22:04)
[2023-04-13] MEDS ORDERED: IPRATROPIUM/ALBUTEROL SULFATE 3 ML AMPUL.NEB (DUONEB) INH PRN (23:15)
[2023-04-13] MEDS ORDERED: FUROSEMIDE 40 MG/4 ML VIAL IVP ONE (23:15)
[2023-04-14] VITALS: BP_SYST 145; PULSE 105; RESP 18; TEMP 97.3; O2SAT 95
[2023-04-14 08:30] VITALS: O2SAT 97
[2023-04-14] MEDS: ATORVASTATIN 20 MG TABLET PO SCH (09:00)
[2023-04-14] MEDS: HYDROXYCHLOROQUINE SULFATE 200 MG TABLET PO SCH (09:00)
[2023-04-14] MEDS: CLOPIDOGREL BISULFATE 75 MG TABLET PO SCH (09:00)
[2023-04-14] MEDS: methIMAzole 5 MG TABLET PO SCH (09:00)
[2023-04-14] MEDS: buPROPion HCL 150 MG XL TAB PO SCH (09:00)
[2023-04-14] MEDS: POLYETHYLENE GLYCOL 3350, 17 GM/ POWD.PACK PO SCH (09:00)
[2023-04-14] MEDS: MULTIVITAMINS TAB 1 TABLET PO SCH (09:00)
[2023-04-14] MEDS: FOLIC ACID 1 MG TABLET PO SCH (09:00)
[2023-04-14] MEDS: NEPHROVITE, (FOLIC ACID/VITAMIN B COMP W-C 1 TAB) PO SCH (09:00)
[2023-04-14] MEDS: ASCORBIC ACID 500 MG TABLET PO SCH (09:00)
[2023-04-14] MEDS: Effexor XR 37.5 MG PO SCH (09:00)
[2023-04-14] MEDS: BUDESONIDE 0.5 MG/2 ML AMPUL.NEB INH SCH ×2 (09:00→09:05)
[2023-04-14] MEDS: PANTOPRAZOLE SODIUM 40 MG TAB PO SCH (09:00)
[2023-04-14] MEDS: DOCUSATE SODIUM 100 MG CAPSULE PO SCH (09:00)
[2023-04-14 09:05] VITALS: PULSE 89; O2SAT 97
[2023-04-14 11:44] VITALS: BP_SYST 149; PULSE 89; RESP 17; TEMP 99; O2SAT 100
[2023-04-14] MEDS: CEFEPIME 2 GM in D5W 100 ML IV SCH (13:36)
[2023-04-14] MEDS ORDERED: LINEZOLID 300 ML IV SCH (21:00)
== END 2023-04-14 14:27 | DRG 628 ==
LOC: SED 09:07 → SMU 11:58
PROVIDERS: ADMIT Specialist; ATTEND Specialist
PROC: 30233N1 Transfusion of Nonautologous Red Blood Cells into Peripheral Vein, Percutaneous Approach (ICD-10-PCS; 2023-04-06)
PROC: 0QBN0ZZ Excision of Right Metatarsal, Open Approach (ICD-10-PCS; 2023-04-11)
PROC: 0QBP0ZZ Excision of Left Metatarsal, Open Approach (ICD-10-PCS; principal; 2023-04-11 08:50)
DX: E11.621 Type 2 diabetes mellitus with foot ulcer (principal); E43 Unspecified severe protein-calorie malnutrition; M72.6 Necrotizing fasciitis; L03.116 Cellulitis of left lower limb; L03.115 Cellulitis of right lower limb; E87.1 Hypo-osmolality and hyponatremia; I13.0 Hypertensive heart and chronic kidney disease with heart failure and stage 1 through stage 4 chronic kidney disease, or unspecified chronic kidney disease; I50.32 Chronic diastolic (congestive) heart failure; L97.429 Non-pressure chronic ulcer of left heel and midfoot with unspecified severity; N39.0 Urinary tract infection, site not specified; M86.8X7 Other osteomyelitis, ankle and foot; I24.89 Other forms of acute ischemic heart disease; R65.10 Systemic inflammatory response syndrome (SIRS) of non-infectious origin without acute organ dysfunction; N18.4 Chronic kidney disease, stage 4 (severe); N17.9 Acute kidney failure, unspecified; E11.51 Type 2 diabetes mellitus with diabetic peripheral angiopathy without gangrene; E11.69 Type 2 diabetes mellitus with other specified complication; D63.8 Anemia in other chronic diseases classified elsewhere; E11.22 Type 2 diabetes mellitus with diabetic chronic kidney disease; E78.5 Hyperlipidemia, unspecified; I25.10 Atherosclerotic heart disease of native coronary artery without angina pectoris; L97.519 Non-pressure chronic ulcer of other part of right foot with unspecified severity; E66.01 Morbid (severe) obesity due to excess calories; B96.20 Unspecified Escherichia coli [E. coli] as the cause of diseases classified elsewhere; Z90.710 Acquired absence of both cervix and uterus; Z95.810 Presence of automatic (implantable) cardiac defibrillator; Z99.3 Dependence on wheelchair; Z79.899 Other long term (current) drug therapy; Z74.01 Bed confinement status; Z79.4 Long term (current) use of insulin; Z88.2 Allergy status to sulfonamides; Z98.1 Arthrodesis status; Z68.28 Body mass index [BMI] 28.0-28.9, adult; Z79.82 Long term (current) use of aspirin; K29.70 Gastritis, unspecified, without bleeding
CPT/HCPCS: 36415; 71045; 73700-TC; 76376; 80048; 80053; 80061; 80202; 81000; 81001; 81015; 82272; 82607; 82728; 82962; 83540; 83550; 83735; 83880; 84439; 84443; 84484; 85025; 85044; 85610-TC; 85651-TC; 85730-TC; 86870; 86886; 86900; 86901; 86920; 87040; 87070-TC; 87075-TC; 87081; 87086; 87186-TC; 88304; 93005; 93306; 94640; 94760; 96365; 96367; 99285; J0690; J0692; J1200; J1650; J1940; J2001; J2020; J2250; J2405; J2543; J2704; J2710; J3010; J3370; J3490; J7050; J7060; J7120; J7626; P9021

== ENCOUNTER 2023-11-25 23:40 | Emergency (ER) | payer OTHER ==
[~2023-11-25] VITALS: Ht 162.6 cm; Wt 70.3 kg
[~2023-11-25 23:40] MED LIST changes: -CLIN-22 PO; -INSU100I68 SUBCUT; +INSU100I98 SUBCUT; -LEVO500P13 IV; +MAXPM1 IV; -METO5TAB9 PO; -VENL150C53 PO; -VENL75CA56 PO; -[UNRECOGNIZED DRUG - CODE] IV
[2023-11-25 23:46] VITALS: BP_SYST 108; PULSE 77; RESP 19; TEMP 98; O2SAT 96
[2023-11-26] MEDS: KETOROLAC TROMETHAMINE 60 MG/2 ML VIAL IM ONE (00:22)
[2023-11-26 01:27] VITALS: BP_SYST 105; PULSE 70; RESP 18; TEMP 98; O2SAT 96
== END 2023-11-26 01:05 ==
LOC: SED 23:40
DX: M79.10 Myalgia, unspecified site (principal); Z88.2 Allergy status to sulfonamides; Z79.899 Other long term (current) drug therapy; Z79.2 Long term (current) use of antibiotics; Z79.82 Long term (current) use of aspirin; W05.0XXA Fall from non-moving wheelchair, initial encounter; Y93.89 Activity, other specified; Y92.89 Other specified places as the place of occurrence of the external cause; Y99.8 Other external cause status
CPT/HCPCS: 99283; 96372; J1885

== ENCOUNTER 2023-12-01 15:09 | Inpatient (IN) | payer OTHER ==
[~2023-12-01] VITALS: Ht 162.6 cm; Wt 89.8 kg
[2023-12-01 00:20] VITALS: BP_SYST 115; PULSE 75; RESP 16; TEMP 98.5; O2SAT 98
[2023-12-01 15:16] VITALS: BP_SYST 132; PULSE 97; RESP 16; TEMP 98.6; O2SAT 97
[2023-12-01 15:37] LABS: BASOPHILS % (AUTO) 0.2 % (0.0-2.0); EOSINOPHILS # (AUTO) 0.2 K/uL (0.0-0.4); EOSINOPHILS % (AUTO) 1.3 % (0.0-4.0); LYMPHOCYTES # (AUTO) 0.5 K/uL (1.0-5.5); MEAN CORPUSCULAR HEMOGLOBIN 27 pg (27-31); MEAN CORPUSCULAR HGB CONC 32 % (32-36); MEAN CORPUSCULAR VOLUME 83 fL (79.0-98.0); MONOCYTES # (AUTO) 0.8 K/uL (0.0-1.0); MONOCYTES % (AUTO) 5.9 % (1.7-9.3); NEUTROPHILS % (AUTO) 88.6 % (40.0-70.0); PLATELET COUNT (AUTO) 312 K/uL (130-430); RED BLOOD CELL COUNT(AUTO) 2.52 MIL/uL (4.2-6.2); RED CELL DISTRIBUTION WIDTH 19.2 % (9.0-15.0); WHITE BLOOD COUNT (AUTO) 13.5 K/uL (4.8-10.8)
[2023-12-01 15:51] LABS: HEMOGLOBIN 6.7 g/dL (12.0-16.0)
[2023-12-01 16:00] LABS: ALANINE AMINOTRANSFERASE 11 U/L (12-78); ALBUMIN 1.7 g/dL (3.4-4.8); ANION GAP 8 (5-15); ASPARTATE AMINOTRANSFERASE 13 U/L (10-37); BILIRUBIN,DIRECT 0.2 mg/dL (0.0-0.3); CALCIUM 8.3 mg/dL (8.4-11.0); CARBON DIOXIDE 23 mmol/L (23-29); CHLORIDE 107 mmol/L (98-107); GLUCOSE 134 mg/dL (74-106); LIPASE 28 U/L (16-77); POTASSIUM 4.3 mmol/L (3.5-5.1); SODIUM SERUM 138 mmol/L (136-145); TOTAL BILIRUBIN 0.5 mg/dL (0.0-1.0); TOTAL PROTEIN, SERUM 6.2 g/dL (6.4-8.3); UREA NITROGEN, BLOOD 41 mg/dL (8-21)
[2023-12-01] MEDS: NACL 0.9% 1,000 ML IV ONE (16:19)
[2023-12-01] MEDS ORDERED: SACU1TAB PO (16:41)
[2023-12-01] MEDS ORDERED: FOLI0.8T42 PO (16:41)
[2023-12-01] MEDS ORDERED: LIDO1ADH71 TP (16:41)
[2023-12-01] MEDS ORDERED: INSU100V9 SUBCON (16:41)
[2023-12-01] MEDS ORDERED: FLAS1KIT3 (16:41)
[2023-12-01] MEDS ORDERED: VITD400 PO (16:41)
[2023-12-01] MEDS ORDERED: POLY119P2 PO (16:41)
[2023-12-01] MEDS ORDERED: [UNRECOGNIZED DRUG - CODE] PO (16:41)
[2023-12-01] MEDS ORDERED: NYST15PO2 TP (16:44)
[2023-12-01] MEDS ORDERED: TRAM50TA2 PO (16:44)
[2023-12-01] MEDS: NACL 0.9% 1,000 ML IV SCH (17:30)
[2023-12-01] MEDS: ONDANSETRON HCL 4 MG/2 ML VIAL IVP ONE (19:06)
[2023-12-01] MEDS ORDERED: ONDANSETRON HCL 4 MG/2 ML VIAL ONE (19:08)
[2023-12-01 19:09] LABS: BILIRUBIN,URINE NEGATIVE (NEGATIVE); BLOOD, URINE NEGATIVE (NEGATIVE); COLOR,URINE YELLOW (YELLOW); GLUCOSE,URINE 3+ (NEGATIVE); KETONES,URINE NEGATIVE (NEGATIVE); LEUKOCYTE ESTERASE ,URINE NEGATIVE (NEGATIVE); NITRITE, URINE NEGATIVE (NEGATIVE); PROTEIN URINE NEGATIVE (NEGATIVE); UROBILINOGEN,URINE 0.2 (0.2-1.0)
[2023-12-01 19:14] LABS: CLARITY/URINE HAZY (CLEAR)
[2023-12-01 19:20] LABS: BACTERIA,URINE MODERATE /HPF (None Seen); MUCUS,URINE None Seen /LPF (None Seen); RBC,URINE 0-3 /HPF (0-3); URINE AMORPHOUS URATE 2+ /HPF (None Seen)
[2023-12-01 21:00] VITALS: BP_SYST 142; PULSE 80; RESP 18; TEMP 98.9
[2023-12-01] MEDS: CARVEDILOL 12.5 MG TABLET (COREG) PO SCH (21:00)
[2023-12-02] VITALS (34 sets, daily range): BP systolic 78–130; PULSE 61–82; RESP 7–44; TEMP 97.8–98.9; O2SAT 75–100
[2023-12-02] MEDS: PANTOPRAZOLE SODIUM 40 MG/VIAL (PROTONIX) IVP SCH (01:17)
[2023-12-02] MEDS: ONDANSETRON HCL 4 MG/2 ML VIAL IVP PRN (02:32)
[2023-12-02 04:33] LABS: BASOPHILS % (AUTO) 0.1 % (0.0-2.0); EOSINOPHILS # (AUTO) 0.1 K/uL (0.0-0.4); EOSINOPHILS % (AUTO) 0.5 % (0.0-4.0); LYMPHOCYTES # (AUTO) 1.2 K/uL (1.0-5.5); LYMPHOCYTES % (AUTO) 6.9 % (20.5-51.5); MEAN CORPUSCULAR HEMOGLOBIN 27 pg (27-31); MEAN CORPUSCULAR HGB CONC 32 % (32-36); MEAN CORPUSCULAR VOLUME 84 fL (79.0-98.0); MONOCYTES % (AUTO) 6.2 % (1.7-9.3); NEUTROPHILS # (AUTO) 14.7 K/uL (1.8-7.7); NEUTROPHILS % (AUTO) 86.3 % (40.0-70.0); PLATELET COUNT (AUTO) 312 K/uL (130-430); RED CELL DISTRIBUTION WIDTH 18.9 % (9.0-15.0)
[2023-12-02 04:49] LABS: INR 1.3 (0.8-1.2); PROTHROMBIN TIME 13.1 SECS (9.5-12.5); RED BLOOD CELL COUNT(AUTO) 1.57 MIL/uL (4.2-6.2)
[2023-12-02 04:51] LABS: HEMOGLOBIN 4.3 g/dL (12.0-16.0)
[2023-12-02 04:52] LABS: HEMATOCRIT 13.2 % (36-48)
[2023-12-02 05:00] LABS: ALANINE AMINOTRANSFERASE 18 U/L (12-78); ALBUMIN 1.4 g/dL (3.4-4.8); ANION GAP 10 (5-15); ASPARTATE AMINOTRANSFERASE 18 U/L (10-37); CALCIUM 7.7 mg/dL (8.4-11.0); CARBON DIOXIDE 19 mmol/L (23-29); CHLORIDE 109 mmol/L (98-107); GLUCOSE 172 mg/dL (74-106); POTASSIUM 4.9 mmol/L (3.5-5.1); SODIUM SERUM 138 mmol/L (136-145); TOTAL BILIRUBIN 0.5 mg/dL (0.0-1.0); TOTAL PROTEIN, SERUM 5.2 g/dL (6.4-8.3); UREA NITROGEN, BLOOD 51 mg/dL (8-21)
[2023-12-02 05:09] LABS: AMYLASE 23 U/L (0-100); LIPASE 29 U/L (16-77); THYROID STIMULATING HORMONE 1.22 uIu/mL (0.36-3.74)
[2023-12-02] MEDS: NS 500 ML IV ONE (05:56)
[2023-12-02 06:06] LABS: CHOLESTEROL 74 mg/dL (<200); HDL CHOLESTEROL 31 mg/dL (>55); TRIGLYCERIDES 77 mg/dL (30-150)
[2023-12-02] MEDS: NOREPINEPHRINE 4 MG/4 ML VIAL IV ONE (06:24)
[2023-12-02] MEDS: NOREPINEPHRINE BITARTRATE 4 MG in NS 246 ML IV PRN (07:18)
[2023-12-02] MEDS: NS 1000 ML IV.SOLN IV ONE (07:18)
[2023-12-02 08:31] LABS: HEMATOCRIT 15.2 % (36-48); HEMOGLOBIN 4.5 g/dL (12.0-16.0)
[2023-12-02] MEDS ORDERED: CEFEPIME 1 GM/DEXT-ISO-OSM 50 ML FROZ.PIGGY IV SCH (09:00)
[2023-12-02] MEDS: metOLazone 5 MG TABLET PO SCH (09:00)
[2023-12-02] MEDS: FOLIC ACID 1 MG TABLET PO SCH (10:18)
[2023-12-02] MEDS: ACETAMINOPHEN 500 MG TABLET PO PRN (10:18)
[2023-12-02] MEDS: NEPHROVITE, (FOLIC ACID/VITAMIN B COMP W-C 1 TAB) PO SCH (10:19)
[2023-12-02] MEDS: methIMAzole 5 MG TABLET PO SCH (10:19)
[2023-12-02] MEDS: DIPHENHYDRAMINE INJ 50 MG/ML VIAL ONE (12:47)
[2023-12-02] MEDS: ACETAMINOPHEN 325 MG TABLET PO ONE (12:51)
[2023-12-02] MEDS ORDERED: DEXTROSE 50%-WATER 50 ML DISP.SYRIN IVP PRN (13:00)
[2023-12-02 13:09] LABS: TOTAL IRON BIND. CAPACITY 112 ug/dL (250-450)
[2023-12-02] MEDS: MEROPENEM 500 MG in NS 50 ML IV SCH (14:27)
[2023-12-02] MEDS: EPOETIN ALFA-EPBX 4,000 UNITS/ML VIAL SUBCUT SCH (17:00)
[2023-12-02] MEDS: DIPHENHYDRAMINE INJ 50 MG/ML VIAL IVP PRN (17:01)
[2023-12-02] MEDS: PANTOPRAZOLE SODIUM 80 MG in NS 100 ML IV SCH (17:45)
[2023-12-02] MEDS: INSULIN LISPRO SLIDING SCALE 100 UNITS/ML, 3 ML VIAL (humaLOG) SUBCUT PRN (21:05)
[2023-12-03] VITALS (24 sets, daily range): BP systolic 96–161; PULSE 64–106; RESP 9–26; TEMP 97–98.2; O2SAT 92–100
[2023-12-03 05:25] LABS: BILIRUBIN,URINE NEGATIVE (NEGATIVE); BLOOD, URINE 2+ (NEGATIVE); CLARITY/URINE SL CLOUDY (CLEAR); COLOR,URINE YELLOW (YELLOW); GLUCOSE,URINE 1+ (NEGATIVE); KETONES,URINE NEGATIVE (NEGATIVE); LEUKOCYTE ESTERASE ,URINE TRACE (NEGATIVE); NITRITE, URINE NEGATIVE (NEGATIVE); PROTEIN URINE TRACE (NEGATIVE); UROBILINOGEN,URINE 0.2 (0.2-1.0)
[2023-12-03 05:49] LABS: BACTERIA,URINE FEW /HPF (None Seen); WBC,URINE 20-50 /HPF (0-3)
[2023-12-03 06:47] LABS: BASOPHILS # (AUTO) 0.1 K/uL (0.0-0.2); BASOPHILS % (AUTO) 0.4 % (0.0-2.0); EOSINOPHILS # (AUTO) 0.4 K/uL (0.0-0.4); EOSINOPHILS % (AUTO) 2.1 % (0.0-4.0); HEMATOCRIT 22.9 % (36-48); HEMOGLOBIN 7.5 g/dL (12.0-16.0); LYMPHOCYTES # (AUTO) 1.6 K/uL (1.0-5.5); LYMPHOCYTES % (AUTO) 7.9 % (20.5-51.5); MEAN CORPUSCULAR HEMOGLOBIN 29 pg (27-31); MEAN CORPUSCULAR HGB CONC 33 % (32-36); MEAN CORPUSCULAR VOLUME 88 fL (79.0-98.0); MONOCYTES # (AUTO) 1.1 K/uL (0.0-1.0); MONOCYTES % (AUTO) 5.6 % (1.7-9.3); NEUTROPHILS # (AUTO) 17.1 K/uL (1.8-7.7); PLATELET COUNT (AUTO) 279 K/uL (130-430); RED BLOOD CELL COUNT(AUTO) 2.61 MIL/uL (4.2-6.2); RED CELL DISTRIBUTION WIDTH 16.9 % (9.0-15.0); WHITE BLOOD COUNT (AUTO) 20.4 K/uL (4.8-10.8)
[2023-12-03 06:56] LABS: ANION GAP 10 (5-15); CALCIUM 7.8 mg/dL (8.4-11.0); CARBON DIOXIDE 19 mmol/L (23-29); CHLORIDE 109 mmol/L (98-107); CREATININE 2.23 mg/dL (0.55-1.30); GLUCOSE 213 mg/dL (74-106); POTASSIUM 4.5 mmol/L (3.5-5.1); SODIUM SERUM 138 mmol/L (136-145); UREA NITROGEN, BLOOD 64 mg/dL (8-21)
[2023-12-03] MEDS: PANTOPRAZOLE SODIUM 40 MG in NS 50 ML IV SCH (11:56)
[2023-12-03 12:58] LABS: HEMATOCRIT 25.1 % (36-48); HEMOGLOBIN 8.5 g/dL (12.0-16.0)
[2023-12-03 14:24] LABS: URINE SODIUM, RANDOM 43 mmol/L (40-220)
[2023-12-03] MEDS: GOLYTELY / COLYTE SOLUTION 4 LITERS PO ONE (17:36)
[2023-12-03] MEDS: BISACODYL 5 MG TABLET.DR (DULCOLAX) PO ONE (17:39)
[2023-12-04] VITALS (22 sets, daily range): BP systolic 103–159; PULSE 66–83; RESP 14–22; TEMP 97.3–97.8; O2SAT 95–100
[2023-12-04] MEDS ORDERED: MORPHINE 2 MG/ML INJ. SYRINGE IVP PRN (04:45)
[2023-12-04 07:09] LABS: ANION GAP 10 (5-15); CALCIUM 7.9 mg/dL (8.4-11.0); CARBON DIOXIDE 18 mmol/L (23-29); CHLORIDE 113 mmol/L (98-107); CREATININE 1.73 mg/dL (0.55-1.30); GLUCOSE 108 mg/dL (74-106); POTASSIUM 3.8 mmol/L (3.5-5.1); SODIUM SERUM 141 mmol/L (136-145); UREA NITROGEN, BLOOD 54 mg/dL (8-21)
[2023-12-04 07:28] LABS: BASOPHILS # (AUTO) 0.1 K/uL (0.0-0.2); BASOPHILS % (AUTO) 0.4 % (0.0-2.0); EOSINOPHILS # (AUTO) 0.5 K/uL (0.0-0.4); EOSINOPHILS % (AUTO) 2.6 % (0.0-4.0); HEMATOCRIT 24.1 % (36-48); LYMPHOCYTES # (AUTO) 1.9 K/uL (1.0-5.5); MEAN CORPUSCULAR HEMOGLOBIN 29 pg (27-31); MEAN CORPUSCULAR HGB CONC 33 % (32-36); MEAN CORPUSCULAR VOLUME 87 fL (79.0-98.0); MONOCYTES # (AUTO) 1.5 K/uL (0.0-1.0); NEUTROPHILS # (AUTO) 15.1 K/uL (1.8-7.7); PLATELET COUNT (AUTO) 263 K/uL (130-430); RED BLOOD CELL COUNT(AUTO) 2.76 MIL/uL (4.2-6.2); RED CELL DISTRIBUTION WIDTH 16.5 % (9.0-15.0); WHITE BLOOD COUNT (AUTO) 19.1 K/uL (4.8-10.8)
[2023-12-05 00:21] VITALS: BP_SYST 118; PULSE 73; RESP 16; TEMP 96.8; O2SAT 99
[2023-12-05 07:01] LABS: ANION GAP 9 (5-15); CALCIUM 7.7 mg/dL (8.4-11.0); CARBON DIOXIDE 18 mmol/L (23-29); CHLORIDE 113 mmol/L (98-107); CREATININE 1.33 mg/dL (0.55-1.30); GLUCOSE 121 mg/dL (74-106); POTASSIUM 4.3 mmol/L (3.5-5.1); SODIUM SERUM 140 mmol/L (136-145); UREA NITROGEN, BLOOD 31 mg/dL (8-21)
[2023-12-05 07:53] LABS: BASOPHILS # (AUTO) 0.1 K/uL (0.0-0.2); BASOPHILS % (AUTO) 0.6 % (0.0-2.0); EOSINOPHILS # (AUTO) 0.2 K/uL (0.0-0.4); EOSINOPHILS % (AUTO) 1.8 % (0.0-4.0); LYMPHOCYTES # (AUTO) 1.1 K/uL (1.0-5.5); LYMPHOCYTES % (AUTO) 9.8 % (20.5-51.5); MEAN CORPUSCULAR HEMOGLOBIN 29 pg (27-31); MEAN CORPUSCULAR HGB CONC 33 % (32-36); MEAN CORPUSCULAR VOLUME 89 fL (79.0-98.0); MONOCYTES # (AUTO) 1.2 K/uL (0.0-1.0); MONOCYTES % (AUTO) 10.4 % (1.7-9.3); NEUTROPHILS # (AUTO) 8.7 K/uL (1.8-7.7); NEUTROPHILS % (AUTO) 77.4 % (40.0-70.0); PLATELET COUNT (AUTO) 213 K/uL (130-430); RED BLOOD CELL COUNT(AUTO) 2.33 MIL/uL (4.2-6.2); RED CELL DISTRIBUTION WIDTH 17.3 % (9.0-15.0); WHITE BLOOD COUNT (AUTO) 11.3 K/uL (4.8-10.8)
[2023-12-05 08:00] VITALS: O2SAT 100
[2023-12-05 08:22] LABS: HEMOGLOBIN 6.7 g/dL (12.0-16.0)
[2023-12-05 08:23] LABS: HEMATOCRIT 20.7 % (36-48)
[2023-12-05 10:00] VITALS: BP_SYST 133; PULSE 104; RESP 19; TEMP 98; O2SAT 100
[2023-12-05 12:19] VITALS: BP_SYST 133; PULSE 79; RESP 18; TEMP 97.8; O2SAT 100
[2023-12-05 16:36] VITALS: BP_SYST 159; PULSE 89; RESP 17; TEMP 98; O2SAT 99
[2023-12-05 20:39] VITALS: BP_SYST 129; PULSE 88; RESP 18; TEMP 99; O2SAT 100
[2023-12-06] VITALS: BP_SYST 138; PULSE 86; RESP 20; TEMP 98.1; O2SAT 99
[2023-12-06 06:33] LABS: INR 1.1 (0.8-1.2); PROTHROMBIN TIME 11.8 SECS (9.5-12.5)
[2023-12-06 06:35] LABS: ANION GAP 9 (5-15); CALCIUM 7.9 mg/dL (8.4-11.0); CARBON DIOXIDE 19 mmol/L (23-29); CHLORIDE 113 mmol/L (98-107); CREATININE 1.24 mg/dL (0.55-1.30); GLUCOSE 263 mg/dL (74-106); POTASSIUM 4.3 mmol/L (3.5-5.1); SODIUM SERUM 141 mmol/L (136-145); UREA NITROGEN, BLOOD 24 mg/dL (8-21)
[2023-12-06 07:30] LABS: BASOPHILS # (AUTO) 0.1 K/uL (0.0-0.2); BASOPHILS % (AUTO) 0.4 % (0.0-2.0); EOSINOPHILS # (AUTO) 0.1 K/uL (0.0-0.4); EOSINOPHILS % (AUTO) 1.1 % (0.0-4.0); HEMOGLOBIN 7.1 g/dL (12.0-16.0); LYMPHOCYTES # (AUTO) 0.8 K/uL (1.0-5.5); LYMPHOCYTES % (AUTO) 6.5 % (20.5-51.5); MEAN CORPUSCULAR HEMOGLOBIN 29 pg (27-31); MEAN CORPUSCULAR HGB CONC 33 % (32-36); MEAN CORPUSCULAR VOLUME 90 fL (79.0-98.0); MONOCYTES # (AUTO) 1.1 K/uL (0.0-1.0); MONOCYTES % (AUTO) 8.7 % (1.7-9.3); NEUTROPHILS # (AUTO) 10.1 K/uL (1.8-7.7); NEUTROPHILS % (AUTO) 83.3 % (40.0-70.0); PLATELET COUNT (AUTO) 228 K/uL (130-430); RED BLOOD CELL COUNT(AUTO) 2.43 MIL/uL (4.2-6.2); RED CELL DISTRIBUTION WIDTH 17.5 % (9.0-15.0); WHITE BLOOD COUNT (AUTO) 12.1 K/uL (4.8-10.8)
[2023-12-06 07:52] LABS: HEMATOCRIT 21.8 % (36-48)
[2023-12-06 08:03] VITALS: BP_SYST 149; PULSE 70; RESP 12; TEMP 98.2; O2SAT 100
[2023-12-06 09:00] VITALS: O2SAT 100
[2023-12-06 12:32] VITALS: BP_SYST 126; PULSE 66; RESP 16; TEMP 97.8; O2SAT 100
[2023-12-06 16:52] VITALS: BP_SYST 155; PULSE 76; RESP 18; TEMP 97.9; O2SAT 100
[2023-12-06 20:00] VITALS: BP_SYST 127; PULSE 84; RESP 18; TEMP 98.1; O2SAT 100
[2023-12-06] MEDS: PANTOPRAZOLE SODIUM 40 MG/VIAL (PROTONIX) IVP SCH (22:06)
[2023-12-07] VITALS: BP_SYST 136; PULSE 69; RESP 16; TEMP 98.2; O2SAT 100
[2023-12-07 08:00] VITALS: BP_SYST 116; PULSE 75; RESP 16; TEMP 97.9; O2SAT 98
[2023-12-07 08:18] LABS: ANION GAP 11 (5-15); CARBON DIOXIDE 16 mmol/L (23-29); CHLORIDE 110 mmol/L (98-107); CREATININE 1.11 mg/dL (0.55-1.30); GLUCOSE 140 mg/dL (74-106); POTASSIUM 4.1 mmol/L (3.5-5.1); SODIUM SERUM 137 mmol/L (136-145); UREA NITROGEN, BLOOD 15 mg/dL (8-21)
[2023-12-07 08:38] LABS: BASOPHILS % (AUTO) 0.3 % (0.0-2.0); EOSINOPHILS # (AUTO) 0.2 K/uL (0.0-0.4); EOSINOPHILS % (AUTO) 2.5 % (0.0-4.0); HEMATOCRIT 23.2 % (36-48); HEMOGLOBIN 7.5 g/dL (12.0-16.0); LYMPHOCYTES # (AUTO) 0.9 K/uL (1.0-5.5); LYMPHOCYTES % (AUTO) 8.9 % (20.5-51.5); MEAN CORPUSCULAR HEMOGLOBIN 30 pg (27-31); MEAN CORPUSCULAR HGB CONC 32 % (32-36); MEAN CORPUSCULAR VOLUME 92 fL (79.0-98.0); MONOCYTES # (AUTO) 0.9 K/uL (0.0-1.0); MONOCYTES % (AUTO) 9.3 % (1.7-9.3); NEUTROPHILS # (AUTO) 7.9 K/uL (1.8-7.7); PLATELET COUNT (AUTO) 230 K/uL (130-430); RED BLOOD CELL COUNT(AUTO) 2.51 MIL/uL (4.2-6.2); RED CELL DISTRIBUTION WIDTH 17.3 % (9.0-15.0)
[2023-12-07 11:02] VITALS: BP_SYST 130; PULSE 75; RESP 16; TEMP 96.9; O2SAT 97
[2023-12-07 15:04] VITALS: BP_SYST 141; PULSE 79; RESP 15; TEMP 97.7; O2SAT 96
[2023-12-07 19:49] VITALS: BP_SYST 130; PULSE 77; RESP 15; TEMP 97; O2SAT 96
[2023-12-07 20:00] VITALS: O2SAT 98
[2023-12-08 04:00] VITALS: BP_SYST 127; PULSE 72; RESP 20; TEMP 98; O2SAT 97
[2023-12-08 08:51] LABS: BASOPHILS # (AUTO) 0.1 K/uL (0.0-0.2); EOSINOPHILS # (AUTO) 0.2 K/uL (0.0-0.4); HEMATOCRIT 23.5 % (36-48); HEMOGLOBIN 7.6 g/dL (12.0-16.0); LYMPHOCYTES # (AUTO) 0.8 K/uL (1.0-5.5); LYMPHOCYTES % (AUTO) 9.9 % (20.5-51.5); MEAN CORPUSCULAR HEMOGLOBIN 30 pg (27-31); MEAN CORPUSCULAR HGB CONC 33 % (32-36); MEAN CORPUSCULAR VOLUME 91 fL (79.0-98.0); MONOCYTES # (AUTO) 0.8 K/uL (0.0-1.0); MONOCYTES % (AUTO) 9.5 % (1.7-9.3); NEUTROPHILS # (AUTO) 6.3 K/uL (1.8-7.7); NEUTROPHILS % (AUTO) 76.6 % (40.0-70.0); PLATELET COUNT (AUTO) 252 K/uL (130-430); RED BLOOD CELL COUNT(AUTO) 2.57 MIL/uL (4.2-6.2); RED CELL DISTRIBUTION WIDTH 17.2 % (9.0-15.0); WHITE BLOOD COUNT (AUTO) 8.2 K/uL (4.8-10.8)
[2023-12-08] MEDS: HYDROcodone/ACETAMIN 5-325 MG TAB (NORCO/ VICODIN) PO PRN (09:11)
[2023-12-08 09:29] LABS: ALANINE AMINOTRANSFERASE 374 U/L (12-78); ALBUMIN 1.7 g/dL (3.4-4.8); ANION GAP 6 (5-15); ASPARTATE AMINOTRANSFERASE 48 U/L (10-37); CALCIUM 8.3 mg/dL (8.4-11.0); CARBON DIOXIDE 21 mmol/L (23-29); CHLORIDE 112 mmol/L (98-107); CREATININE 1.27 mg/dL (0.55-1.30); FREE T4 (FREE THYROXINE) 1.6 ng/dl (0.8-1.5); GLUCOSE 148 mg/dL (74-106); SODIUM SERUM 139 mmol/L (136-145); THYROID STIMULATING HORMONE 1.63 uIu/mL (0.36-3.74); TOTAL BILIRUBIN 0.4 mg/dL (0.0-1.0); TOTAL PROTEIN, SERUM 6.4 g/dL (6.4-8.3); UREA NITROGEN, BLOOD 15 mg/dL (8-21)
[2023-12-08 11:41] VITALS: BP_SYST 130; PULSE 70; RESP 18; TEMP 98.4; O2SAT 100
[2023-12-08] MEDS: FUROSEMIDE 40 MG/4 ML VIAL IVP ONE (12:38)
[2023-12-08 16:38] VITALS: BP_SYST 134; PULSE 77; RESP 17; TEMP 99; O2SAT 100
[2023-12-08 20:00] VITALS: O2SAT 100
[2023-12-08] MEDS ORDERED: ATORVASTATIN 20 MG TABLET PO SCH (21:00)
[2023-12-09 02:08] VITALS: BP_SYST 121; PULSE 77; RESP 18; TEMP 97.8; O2SAT 100
[2023-12-09] MEDS: MILK OF MAGNESIA 30 ML UDC PO ONE (08:49)
[2023-12-09] MEDS: FUROSEMIDE 40 MG/4 ML VIAL IVP SCH (08:51)
[2023-12-09] MEDS: DOCUSATE SODIUM 100 MG CAPSULE PO SCH ×2 (08:52→20:17)
[2023-12-09 09:49] LABS: BASOPHILS # (AUTO) 0.1 K/uL (0.0-0.2); BASOPHILS % (AUTO) 0.8 % (0.0-2.0); EOSINOPHILS # (AUTO) 0.2 K/uL (0.0-0.4); EOSINOPHILS % (AUTO) 3.2 % (0.0-4.0); LYMPHOCYTES # (AUTO) 0.7 K/uL (1.0-5.5); LYMPHOCYTES % (AUTO) 11.8 % (20.5-51.5); MEAN CORPUSCULAR HEMOGLOBIN 30 pg (27-31); MEAN CORPUSCULAR HGB CONC 33 % (32-36); MEAN CORPUSCULAR VOLUME 90 fL (79.0-98.0); MONOCYTES # (AUTO) 0.6 K/uL (0.0-1.0); MONOCYTES % (AUTO) 9.7 % (1.7-9.3); NEUTROPHILS # (AUTO) 4.7 K/uL (1.8-7.7); NEUTROPHILS % (AUTO) 74.5 % (40.0-70.0); PLATELET COUNT (AUTO) 258 K/uL (130-430); RED BLOOD CELL COUNT(AUTO) 2.27 MIL/uL (4.2-6.2); RED CELL DISTRIBUTION WIDTH 16.6 % (9.0-15.0); WHITE BLOOD COUNT (AUTO) 6.3 K/uL (4.8-10.8)
[2023-12-09 10:21] LABS: ALANINE AMINOTRANSFERASE 251 U/L (12-78); ALBUMIN 1.5 g/dL (3.4-4.8); ANION GAP 9 (5-15); ASPARTATE AMINOTRANSFERASE 26 U/L (10-37); CALCIUM 8.3 mg/dL (8.4-11.0); CARBON DIOXIDE 21 mmol/L (23-29); CHLORIDE 109 mmol/L (98-107); CREATININE 1.28 mg/dL (0.55-1.30); GLUCOSE 132 mg/dL (74-106); LACTATE DEHYDROGENASE 221 U/L (81-234); LIPASE 51 U/L (16-77); SODIUM SERUM 139 mmol/L (136-145); TOTAL BILIRUBIN 0.3 mg/dL (0.0-1.0); TOTAL PROTEIN, SERUM 5.9 g/dL (6.4-8.3); UREA NITROGEN, BLOOD 15 mg/dL (8-21)
[2023-12-09 11:15] VITALS: BP_SYST 103; PULSE 67; RESP 16; TEMP 97.1; O2SAT 95
[2023-12-09 11:41] LABS: HEMATOCRIT 20.5 % (36-48); HEMOGLOBIN 6.7 g/dL (12.0-16.0)
[2023-12-09 15:42] VITALS: BP_SYST 126; PULSE 72; RESP 16; TEMP 97.5; O2SAT 98
[2023-12-09 20:00] VITALS: BP_SYST 125; PULSE 78; RESP 16; TEMP 97.6; O2SAT 100; O2SAT 99
[2023-12-10] VITALS (7 sets, daily range): BP systolic 124–147; PULSE 74–86; RESP 16–20; TEMP 98.1–98.7; O2SAT 98–100
[2023-12-10] MEDS: POLYETHYLENE GLYCOL 3350, 17 GM/ POWD.PACK PO SCH (09:08)
[2023-12-10 09:32] LABS: BASOPHILS # (AUTO) 0.1 K/uL (0.0-0.2); BASOPHILS % (AUTO) 0.8 % (0.0-2.0); EOSINOPHILS # (AUTO) 0.2 K/uL (0.0-0.4); EOSINOPHILS % (AUTO) 2.7 % (0.0-4.0); HEMATOCRIT 24.8 % (36-48); HEMOGLOBIN 8.4 g/dL (12.0-16.0); LYMPHOCYTES # (AUTO) 0.7 K/uL (1.0-5.5); LYMPHOCYTES % (AUTO) 10.6 % (20.5-51.5); MEAN CORPUSCULAR HEMOGLOBIN 30 pg (27-31); MEAN CORPUSCULAR HGB CONC 34 % (32-36); MEAN CORPUSCULAR VOLUME 89 fL (79.0-98.0); MONOCYTES # (AUTO) 0.6 K/uL (0.0-1.0); MONOCYTES % (AUTO) 8.3 % (1.7-9.3); NEUTROPHILS # (AUTO) 5.3 K/uL (1.8-7.7); NEUTROPHILS % (AUTO) 77.6 % (40.0-70.0); PLATELET COUNT (AUTO) 326 K/uL (130-430); RED BLOOD CELL COUNT(AUTO) 2.78 MIL/uL (4.2-6.2); RED CELL DISTRIBUTION WIDTH 16.3 % (9.0-15.0); WHITE BLOOD COUNT (AUTO) 6.8 K/uL (4.8-10.8)
[2023-12-10 09:44] LABS: ALANINE AMINOTRANSFERASE 229 U/L (12-78); ALBUMIN 1.9 g/dL (3.4-4.8); ANION GAP 7 (5-15); ASPARTATE AMINOTRANSFERASE 32 U/L (10-37); CALCIUM 8.7 mg/dL (8.4-11.0); CARBON DIOXIDE 24 mmol/L (23-29); CHLORIDE 108 mmol/L (98-107); CREATININE 1.31 mg/dL (0.55-1.30); GLUCOSE 131 mg/dL (74-106); SODIUM SERUM 139 mmol/L (136-145); TOTAL BILIRUBIN 1.7 mg/dL (0.0-1.0); TOTAL PROTEIN, SERUM 6.9 g/dL (6.4-8.3); UREA NITROGEN, BLOOD 16 mg/dL (8-21)
[2023-12-10] MEDS: fentaNYL CITRATE/PF 100 MCG/2 ML AMP ONE ×2 (19:32)
[2023-12-10] MEDS: MIDAZOLAM HCL 5 MG/5 ML VIAL ONE ×2 (19:32)
[2023-12-10] MEDS: ATORVASTATIN 20 MG TABLET PO SCH (21:33)
[2023-12-10] MEDS: SACUBITRIL/VALSARTAN 24 MG-26 MG 1 TABLET PO SCH (21:34)
[2023-12-11 00:12] VITALS: BP_SYST 141; PULSE 90; RESP 18; TEMP 98; O2SAT 99
[2023-12-11 07:30] VITALS: BP_SYST 127; PULSE 68; RESP 18; TEMP 97.7; O2SAT 100
[2023-12-11 07:59] LABS: BASOPHILS # (AUTO) 0.1 K/uL (0.0-0.2); BASOPHILS % (AUTO) 0.9 % (0.0-2.0); EOSINOPHILS # (AUTO) 0.2 K/uL (0.0-0.4); EOSINOPHILS % (AUTO) 4.2 % (0.0-4.0); HEMATOCRIT 22.2 % (36-48); HEMOGLOBIN 7.4 g/dL (12.0-16.0); LYMPHOCYTES # (AUTO) 1.1 K/uL (1.0-5.5); LYMPHOCYTES % (AUTO) 19.6 % (20.5-51.5); MEAN CORPUSCULAR HEMOGLOBIN 30 pg (27-31); MEAN CORPUSCULAR HGB CONC 33 % (32-36); MEAN CORPUSCULAR VOLUME 89 fL (79.0-98.0); MONOCYTES # (AUTO) 0.8 K/uL (0.0-1.0); MONOCYTES % (AUTO) 13.9 % (1.7-9.3); NEUTROPHILS # (AUTO) 3.5 K/uL (1.8-7.7); NEUTROPHILS % (AUTO) 61.4 % (40.0-70.0); PLATELET COUNT (AUTO) 290 K/uL (130-430); RED BLOOD CELL COUNT(AUTO) 2.49 MIL/uL (4.2-6.2); RED CELL DISTRIBUTION WIDTH 16.3 % (9.0-15.0); WHITE BLOOD COUNT (AUTO) 5.7 K/uL (4.8-10.8)
[2023-12-11 08:26] LABS: ALANINE AMINOTRANSFERASE 162 U/L (12-78); ALBUMIN 1.7 g/dL (3.4-4.8); ANION GAP 6 (5-15); ASPARTATE AMINOTRANSFERASE 22 U/L (10-37); CALCIUM 8.4 mg/dL (8.4-11.0); CARBON DIOXIDE 25 mmol/L (23-29); CHLORIDE 108 mmol/L (98-107); CREATININE 1.32 mg/dL (0.55-1.30); GLUCOSE 102 mg/dL (74-106); POTASSIUM 4.1 mmol/L (3.5-5.1); SODIUM SERUM 139 mmol/L (136-145); TOTAL BILIRUBIN 0.4 mg/dL (0.0-1.0); TOTAL PROTEIN, SERUM 6.2 g/dL (6.4-8.3); UREA NITROGEN, BLOOD 21 mg/dL (8-21)
[2023-12-11] MEDS: buPROPion HCL 150 MG TABLET.SA PO SCH (08:29)
[2023-12-11 10:15] VITALS: O2SAT 100
[2023-12-11 11:39] VITALS: BP_SYST 125; PULSE 74; RESP 16; TEMP 97.7; O2SAT 96
[2023-12-11 15:20] VITALS: BP_SYST 125; PULSE 69; RESP 20; TEMP 97.9; O2SAT 99
[2023-12-11] MEDS ORDERED: POLYETHYLENE GLYCOL 3350, 17 GM/ POWD.PACK PO PRN (16:45)
[2023-12-11 20:00] VITALS: BP_SYST 122; PULSE 76; RESP 20; TEMP 98.4; O2SAT 99
[2023-12-12 00:30] VITALS: BP_SYST 124; PULSE 74; RESP 16; TEMP 98.1; O2SAT 99
[2023-12-12 05:59] LABS: BASOPHILS # (AUTO) 0.1 K/uL (0.0-0.2); EOSINOPHILS # (AUTO) 0.3 K/uL (0.0-0.4); EOSINOPHILS % (AUTO) 4.2 % (0.0-4.0); HEMATOCRIT 23.8 % (36-48); HEMOGLOBIN 7.9 g/dL (12.0-16.0); LYMPHOCYTES # (AUTO) 1.1 K/uL (1.0-5.5); LYMPHOCYTES % (AUTO) 17.8 % (20.5-51.5); MEAN CORPUSCULAR HEMOGLOBIN 30 pg (27-31); MEAN CORPUSCULAR HGB CONC 33 % (32-36); MEAN CORPUSCULAR VOLUME 89 fL (79.0-98.0); MONOCYTES # (AUTO) 0.8 K/uL (0.0-1.0); MONOCYTES % (AUTO) 12.8 % (1.7-9.3); NEUTROPHILS # (AUTO) 3.9 K/uL (1.8-7.7); NEUTROPHILS % (AUTO) 64.2 % (40.0-70.0); PLATELET COUNT (AUTO) 374 K/uL (130-430); RED BLOOD CELL COUNT(AUTO) 2.67 MIL/uL (4.2-6.2); RED CELL DISTRIBUTION WIDTH 16.3 % (9.0-15.0); WHITE BLOOD COUNT (AUTO) 6.1 K/uL (4.8-10.8)
[2023-12-12 06:17] LABS: ANION GAP 7 (5-15); CALCIUM 8.5 mg/dL (8.4-11.0); CARBON DIOXIDE 25 mmol/L (23-29); CHLORIDE 107 mmol/L (98-107); CREATININE 1.36 mg/dL (0.55-1.30); GLUCOSE 124 mg/dL (74-106); POTASSIUM 3.7 mmol/L (3.5-5.1); SODIUM SERUM 139 mmol/L (136-145); UREA NITROGEN, BLOOD 24 mg/dL (8-21)
[2023-12-12 08:00] VITALS: BP_SYST 121; PULSE 73; RESP 17; TEMP 98.5; O2SAT 100
[2023-12-12 12:37] VITALS: BP_SYST 138; PULSE 78; RESP 16; TEMP 98.3; O2SAT 100
[2023-12-12 13:06] LABS: ANTI NUCLEAR AB WITH REFLEX Negative (Negative)
[2023-12-12 16:07] VITALS: BP_SYST 128; PULSE 75; RESP 17; TEMP 98.2; O2SAT 100
[2023-12-12 20:00] VITALS: BP_SYST 126; PULSE 75; RESP 18; TEMP 97.9; O2SAT 98
[2023-12-13] VITALS: BP_SYST 130; PULSE 72; RESP 18; TEMP 97.9; O2SAT 98
[2023-12-13 08:00] VITALS: O2SAT 100
[2023-12-13 12:55] VITALS: BP_SYST 133; PULSE 74; RESP 18; TEMP 98.3; O2SAT 99
[2023-12-13 16:49] VITALS: BP_SYST 132; PULSE 76; RESP 18; TEMP 97.3; O2SAT 99
[2023-12-13 20:00] VITALS: BP_SYST 121; PULSE 77; RESP 20; TEMP 97.1; O2SAT 98
[2023-12-14 01:10] VITALS: BP_SYST 134; PULSE 81; RESP 18; TEMP 97.6; O2SAT 97
[2023-12-14 02:15] VITALS: RESP 20; TEMP 96.8
[2023-12-14 08:00] VITALS: BP_SYST 120; PULSE 75; RESP 18; TEMP 98; O2SAT 99
[2023-12-14 08:55] LABS: BASOPHILS % (AUTO) 0.8 % (0.0-2.0); EOSINOPHILS # (AUTO) 0.4 K/uL (0.0-0.4); EOSINOPHILS % (AUTO) 7.3 % (0.0-4.0); HEMATOCRIT 23.5 % (36-48); HEMOGLOBIN 7.6 g/dL (12.0-16.0); LYMPHOCYTES % (AUTO) 20.4 % (20.5-51.5); MEAN CORPUSCULAR HEMOGLOBIN 29 pg (27-31); MEAN CORPUSCULAR HGB CONC 32 % (32-36); MEAN CORPUSCULAR VOLUME 90 fL (79.0-98.0); MONOCYTES # (AUTO) 0.7 K/uL (0.0-1.0); MONOCYTES % (AUTO) 13.2 % (1.7-9.3); NEUTROPHILS % (AUTO) 58.3 % (40.0-70.0); PLATELET COUNT (AUTO) 351 K/uL (130-430); RED BLOOD CELL COUNT(AUTO) 2.62 MIL/uL (4.2-6.2); RED CELL DISTRIBUTION WIDTH 16.8 % (9.0-15.0); WHITE BLOOD COUNT (AUTO) 5.1 K/uL (4.8-10.8)
[2023-12-14 09:01] LABS: ALANINE AMINOTRANSFERASE 90 U/L (12-78); ALBUMIN 1.9 g/dL (3.4-4.8); ANION GAP 5 (5-15); ASPARTATE AMINOTRANSFERASE 21 U/L (10-37); CALCIUM 8.7 mg/dL (8.4-11.0); CARBON DIOXIDE 26 mmol/L (23-29); CHLORIDE 108 mmol/L (98-107); CREATININE 1.41 mg/dL (0.55-1.30); GLUCOSE 155 mg/dL (74-106); POTASSIUM 3.7 mmol/L (3.5-5.1); SODIUM SERUM 139 mmol/L (136-145); TOTAL BILIRUBIN 0.4 mg/dL (0.0-1.0); UREA NITROGEN, BLOOD 30 mg/dL (8-21)
[2023-12-14 11:10] VITALS: BP_SYST 137; PULSE 77; RESP 16; TEMP 97; O2SAT 98
[2023-12-14] MEDS: FUROSEMIDE 40 MG/4 ML VIAL IVP ONE (15:42)
[2023-12-14 16:10] VITALS: BP_SYST 130; PULSE 79; RESP 18; TEMP 97.7; O2SAT 97
[2023-12-14 20:00] VITALS: BP_SYST 145; PULSE 79; RESP 18; TEMP 98; O2SAT 98
[2023-12-15 00:20] VITALS: BP_SYST 103; PULSE 80; RESP 18; TEMP 96.6; O2SAT 97
[2023-12-15 06:07] LABS: HEPATITIS A AB, IgM Negative (Negative); HEPATITIS B CORE AB, IgM Negative (Negative); HEPATITIS B SURFACE AG Negative (Negative); HEPATITIS C VIRUS AB Non Reactive (Non Reactive)
[2023-12-15 08:01] VITALS: BP_SYST 125; PULSE 78; RESP 17; TEMP 97.6; O2SAT 99
[2023-12-15 08:10] VITALS: O2SAT 99
[2023-12-15 11:14] VITALS: BP_SYST 130; PULSE 78; RESP 18; TEMP 97.8; O2SAT 97
[2023-12-15 15:33] VITALS: BP_SYST 125; PULSE 77; RESP 18; TEMP 97.5; O2SAT 98
[2023-12-15 16:58] VITALS: BP_SYST 154; PULSE 76; RESP 16; TEMP 98.4; O2SAT 100
[2023-12-18 11:35] LABS: ANTI-SMOOTH MUSCLE AB 17 Units (0-19)
[2023-12-21 08:06] LABS: GAMMA GLUTAMYL TRANSFERASE 33 IU/L (0-60)
== END 2023-12-15 16:41 | DRG 871 ==
LOC: SED 15:09 → STU 17:21 → SIC 12-02 05:31 → STU 12-04 19:25 → SMU 12-10 15:41
PROVIDERS: ADMIT General Practice; ATTEND General Practice
PROC: 30233N1 Transfusion of Nonautologous Red Blood Cells into Peripheral Vein, Percutaneous Approach (ICD-10-PCS; principal; 2023-12-02)
PROC: 02HV33Z Insertion of Infusion Device into Superior Vena Cava, Percutaneous Approach (ICD-10-PCS; 2023-12-02)
PROC: 0DJD8ZZ Inspection of Lower Intestinal Tract, Via Natural or Artificial Opening Endoscopic (ICD-10-PCS; 2023-12-04)
PROC: 0DB68ZX Excision of Stomach, Via Natural or Artificial Opening Endoscopic, Diagnostic (ICD-10-PCS; 2023-12-06)
DX: A41.9 Sepsis, unspecified organism (principal); I50.33 Acute on chronic diastolic (congestive) heart failure; R65.21 Severe sepsis with septic shock; N17.0 Acute kidney failure with tubular necrosis; K25.4 Chronic or unspecified gastric ulcer with hemorrhage; K26.4 Chronic or unspecified duodenal ulcer with hemorrhage; I13.0 Hypertensive heart and chronic kidney disease with heart failure and stage 1 through stage 4 chronic kidney disease, or unspecified chronic kidney disease; N39.0 Urinary tract infection, site not specified; M86.8X7 Other osteomyelitis, ankle and foot; D62 Acute posthemorrhagic anemia; E11.51 Type 2 diabetes mellitus with diabetic peripheral angiopathy without gangrene; E11.42 Type 2 diabetes mellitus with diabetic polyneuropathy; E11.69 Type 2 diabetes mellitus with other specified complication; K52.9 Noninfective gastroenteritis and colitis, unspecified; N18.31 Chronic kidney disease, stage 3a; E05.90 Thyrotoxicosis, unspecified without thyrotoxic crisis or storm; E78.5 Hyperlipidemia, unspecified; Z79.899 Other long term (current) drug therapy
CPT/HCPCS: 36415; 43239; 45378; 71045; 76700; 76770; 80048; 80053; 80061; 80074; 80076; 81000; 81001; 81015; 82150; 82570; 82948; 83037; 83516; 83540; 83550; 83605; 83615; 83690; 83735; 83880; 84302; 84439; 84443; 84479; 84484; 85018; 85025; 85044; 85610; 86038; 86870; 86886; 86900; 86901; 86905; 86920; 87040; 87081; 87086; 88305; 88312; 88313; 93005; 93306; 93970; 96374; 97110-GP; 97116-GP; 97530-GP; 99291; C9113; G0378; J0696; J1200; J1940; J2185; J2250; J2405; J2470; J3010; J7050; J7060; P9021; Q5106